=== PATIENT | female | born 1940 | race Caucasian/White ===

== ENCOUNTER 2016-08-25 15:58 | Outpatient (CLI) | payer MEDICARE | END 2016-08-25 15:59 | disposition home or self-care (01) | DX: I48.91 Unspecified atrial fibrillation (principal); Z79.01 Long term (current) use of anticoagulants ==

== ENCOUNTER 2016-09-10 14:09 | Outpatient (CLI) | payer MEDICARE ==
--- NOTE | 2016-09-11 16:33 | Mammography Report ---
DIGITAL SCREENING MAMMOGRAM: 09/10/2016 CLINICAL INDICATION: A 75-year-old, for screening. COMPARISON: 01/2015, 11/2013. TECHNIQUE: Routine CC and MLO projections were obtained of the breasts. FINDINGS: Scattered fibroglandular tissue is present within the breasts. There are no dominant serena s, suspicious microcalcifications, or secondary signs of malignancy. In comparison to the previous st udies, there are no significant changes. ASSESSMENT: NO MAMMOGRAPHIC EVIDENCE OF MALIGNANCY. NO SIGNIFICANT INTERVAL CHANGES. RECOMMENDATION: Screening mammography is recommended annually. BIRADS category 1 - negative. STANDARD QUALIFYING STATEMENTS 1. This examination was reviewed with the aid of Computed-Aided Detection (CAD). 2. A negative or benign imaging report should not delay biopsy if clinically suspicious findings are present. Consider surgical consultation if warranted. More than 5% of cancers are not identified by i maging. 3. Dense breasts may obscure an underlying neoplasm. JOB #: [id number] EXT JOB #:[id number]
== END 2016-09-10 14:10 | disposition home or self-care (01) ==
LOC: DI 14:09
PROVIDERS: ATTEND Physician Assistant Medical
DX: Z12.31 Encounter for screening mammogram for malignant neoplasm of breast (principal)
CPT/HCPCS: 77067

== ENCOUNTER 2016-09-10 14:34 | Outpatient (CLI) | payer MEDICARE | END 2016-09-10 14:35 | disposition home or self-care (01) | DX: I48.91 Unspecified atrial fibrillation (principal); Z79.01 Long term (current) use of anticoagulants ==

== ENCOUNTER 2016-10-09 14:34 | Outpatient (CLI) | payer MEDICARE | END 2016-10-09 14:35 | disposition home or self-care (01) | DX: I48.91 Unspecified atrial fibrillation (principal); Z79.01 Long term (current) use of anticoagulants ==

== ENCOUNTER 2016-11-04 14:16 | Outpatient (CLI) | payer MEDICARE | END 2016-11-04 14:17 | disposition home or self-care (01) | DX: I48.91 Unspecified atrial fibrillation (principal); Z79.01 Long term (current) use of anticoagulants ==

== ENCOUNTER 2016-11-25 14:13 | Outpatient (CLI) | payer MEDICARE | END 2016-11-25 14:14 | disposition home or self-care (01) | DX: I48.91 Unspecified atrial fibrillation (principal); Z79.01 Long term (current) use of anticoagulants ==

== ENCOUNTER 2016-12-08 14:47 | Outpatient (CLI) | payer MEDICARE | END 2016-12-08 14:48 | disposition home or self-care (01) | DX: I48.91 Unspecified atrial fibrillation (principal); Z79.01 Long term (current) use of anticoagulants ==

== ENCOUNTER 2016-12-25 15:40 | Outpatient (CLI) | payer MEDICARE ==
[2016-12-25 16:18] LABS: INR 5.2 (0.8-1.2)
== END 2016-12-25 15:41 | disposition home or self-care (01) ==
LOC: LAB 15:40
PROVIDERS: ATTEND Internal Medicine
DX: I48.91 Unspecified atrial fibrillation (principal); Z79.01 Long term (current) use of anticoagulants
CPT/HCPCS: 36415; 85610

== ENCOUNTER 2017-01-08 13:34 | Outpatient (CLI) | payer MEDICARE | END 2017-01-08 13:35 | disposition home or self-care (01) | LOC: LAB 13:34 | PROVIDERS: ATTEND Internal Medicine | DX: I48.91 Unspecified atrial fibrillation (principal); Z79.01 Long term (current) use of anticoagulants | CPT/HCPCS: 85610 ==

== ENCOUNTER 2017-01-29 14:27 | Outpatient (CLI) | payer MEDICARE | END 2017-01-29 14:28 | disposition home or self-care (01) | LOC: LAB 14:27 | PROVIDERS: ATTEND Internal Medicine | DX: I48.91 Unspecified atrial fibrillation (principal); Z79.01 Long term (current) use of anticoagulants | CPT/HCPCS: 85610 ==

== ENCOUNTER 2017-02-09 15:20 | Outpatient (CLI) | payer MEDICARE | END 2017-02-09 15:21 | disposition home or self-care (01) | LOC: LAB 15:20 | PROVIDERS: ATTEND Internal Medicine | DX: I48.91 Unspecified atrial fibrillation (principal) | CPT/HCPCS: 85610 ==

== ENCOUNTER 2017-09-10 14:19 | Outpatient (CLI) | payer MEDICARE ==
--- NOTE | 2017-09-11 10:52 | XRAY Report ---
THREE VIEW CERVICAL SPINE: 09/10/2017 CLINICAL INDICATION: Back pain. FINDINGS: AP, lateral, odontoid views of the cervical spine are compared to MRI of 07/21/2006. Severe degenerative disk and facet disease is present. There is no evidence of interval fracture or subluxation. The prevertebral soft tissues are unremarkable. IMPRESSION: SEVERE DEGENERATIVE CHANGES. TD: 09/11/2017 10:51
--- NOTE | 2017-09-11 10:54 | XRAY Report ---
TWO VIEW THORACIC SPINE: 09/10/2017 CLINICAL INDICATION: Back pain. FINDINGS: Frontal and lateral views of the thoracic spine demonstrate severe degenerative disk disease, with mild S-shaped scoliosis. There is no evidence of compression fracture. No paraspinal hematoma is seen. IMPRESSION: SEVERE DEGENERATIVE CHANGES, WITH MILD DEGENERATIVE S-SHAPED SCOLIOSIS. TD: 09/11/2017 10:53
--- NOTE | 2017-09-11 10:55 | XRAY Report ---
THREE VIEW LUMBAR SPINE: 09/10/2017 CLINICAL INDICATION: Pain. FINDINGS: AP, lateral, and coned down views of the lumbar spine demonstrate moderate degenerative disk and facet disease. Disk space narrowing is worst at L4-L5. There is no evidence of compression fracture. The bowel gas pattern appears unremarkable. IMPRESSION: MODERATE DEGENERATIVE CHANGES. TD: 09/11/2017 10:54
--- NOTE | 2017-09-11 11:01 | XRAY Report ---
TWO VIEW BILATERAL HANDS: 09/10/2017 CLINICAL INDICATION: Pain. FINDINGS: Frontal and lateral views of the bilateral hands are compared to previous films of the right hand of 07/30/2013. There has been progression of erosive changes at the distal interphalangeal joint of the right fourth finger, more compatible with psoriatic arthritis or erosive osteoarthritis. Other osteoarthritic changes in the right hand appear stable. Moderate to severe bilateral osteoarthritis of the first carpometacarpal joints is noted. IMPRESSION: PROGRESSION OF EROSIVE CHANGES AT THE DISTAL INTERPHALANGEAL JOINT OF THE RIGHT FOURTH FINGER FROM 07/30/2013. THESE CHANGES ARE MORE COMPATIBLE WITH EROSIVE OSTEOARTHRITIS OR PSORIATIC ARTHRITIS. TD: 09/11/2017 10:56
--- NOTE | 2017-09-11 11:02 | XRAY Report ---
TWO VIEW BILATERAL FEET: 09/10/2017 CLINICAL INDICATION: Foot pain. FINDINGS: Frontal and lateral views of the bilateral feet demonstrate previous side plate and screw fusion of the right first tarsometatarsal joint. Mild osteoarthritic changes are seen in the left first tarsometatarsal joint and interphalangeal joints. Moderate osteoarthritic changes are present in the tarsometatarsal joints bilaterally, and pes planus is present bilaterally, with bulky plantar calcaneal spurring. There is no evidence of acute fracture or hardware complication. IMPRESSION: MODERATE OSTEOARTHRITIC CHANGES BILATERALLY. PREVIOUS RIGHT FIRST METATARSOPHALANGEAL JOINT FUSION. TD: 09/11/2017 10:58 TYLER
== END 2017-09-10 14:20 | disposition home or self-care (01) ==
LOC: DI 14:19
PROVIDERS: ATTEND Physician Assistant Medical
DX: M19.072 Primary osteoarthritis, left ankle and foot (principal); M19.071 Primary osteoarthritis, right ankle and foot; M50.30 Other cervical disc degeneration, unspecified cervical region; M47.892 Other spondylosis, cervical region; M41.54 Other secondary scoliosis, thoracic region; M51.34 Other intervertebral disc degeneration, thoracic region; M51.36 Other intervertebral disc degeneration, lumbar region; M47.896 Other spondylosis, lumbar region; M19.042 Primary osteoarthritis, left hand; M19.041 Primary osteoarthritis, right hand; M94.8X4 Other specified disorders of cartilage, hand; M18.0 Bilateral primary osteoarthritis of first carpometacarpal joints; Z98.1 Arthrodesis status
CPT/HCPCS: 72040; 72070; 72100

== ENCOUNTER 2018-05-18 22:43 | Outpatient (CLI) | payer MEDICARE ==
[2018-05-18 16:36] LABS: BASOPHILS % (AUTO) 0.5 %; EOSINOPHILS # (AUTO) 0.1 10^3/uL (0.0-0.7); EOSINOPHILS % (AUTO) 1.1 %; HGB - HEMOGLOBIN 13.3 g/dL (12.0-16.0); LYMPHOCYTES # (AUTO) 1.5 10^3/uL (1.5-3.5); LYMPHOCYTES % (AUTO) 16.2 %; MEAN CORPUSCULAR HEMOGLOBIN 29.6 pg (27.0-31.0); MEAN CORPUSCULAR HGB CONC 33.3 g/dL (32.0-36.0); MEAN PLATELET VOLUME 10.6 fL (7.9-10.8); MONOCYTES # (AUTO) 0.9 10^3/uL (0.0-1.0); MONOCYTES % (AUTO) 9.3 %; NEUTROPHILS # (AUTO) 6.8 10^3/uL (1.5-6.6); NEUTROPHILS % (AUTO) 72.9 %; PLT - PLATELET COUNT 153 10^3/uL (130-450); RED BLOOD COUNT 4.49 10^6/uL (4.20-5.40); RED CELL DISTRIBUTION WIDTH 15.4 % (12.0-15.0); WHITE BLOOD COUNT 9.3 x10^3/uL (4.8-10.8)
[2018-05-18 16:44] LABS: ALBUMIN 4.1 g/dL (3.2-5.5); ALBUMIN/GLOBULIN RATIO 1.3 (1.0-2.2); BILIRUBIN,TOTAL 0.7 mg/dL (0.2-1.0); CALCIUM 9.8 mg/dL (8.5-10.3); CREATININE 1.1 mg/dL (0.4-1.0); CRP - C-REACTIVE PROTEIN 14.9 mg/dL (0-1.0); TOTAL PROTEIN 7.3 g/dL (6.7-8.2)
[2018-05-18 16:50] LABS: PLATELET MORPHOLOGY RARE GIANT PLATELETS (NORMAL)
[2018-05-18 16:51] LABS: PLATELET ESTIMATE, MANUAL NORMAL (130-450,000) (NORMAL); RBC MORPHOLOGY (MULTIPLE) NORMAL APPEARANCE (NORMAL)
== END 2018-05-18 22:44 | disposition home or self-care (01) ==
LOC: LAB.R 22:43
PROVIDERS: ATTEND Physician Assistant Medical
DX: R10.32 Left lower quadrant pain (principal)
CPT/HCPCS: 80053; 85025; 85651; 86140

== ENCOUNTER 2018-05-22 12:31 | Outpatient (CLI) | payer MEDICARE ==
[2018-05-22] MEDS ORDERED: IOPAMIDOL-300 100 ML VIAL ONE (12:35)
[2018-05-22] MEDS ORDERED: IOPAMIDOL-300 50 ML VIAL ONE (12:35)
[2018-05-22] MEDS ORDERED: IOPAMIDOL-300 50 ML VIAL PO ONE (14:34)
[2018-05-22] MEDS ORDERED: IOPAMIDOL-300 100 ML VIAL IVP ONE (14:34)
--- NOTE | 2018-05-23 03:30 | CT Report ---
Reason: ABDOMINAL PAIN, LLQ Procedure Date: 05/22/2018 Accession Number: [id number] / [id number] Procedure: CT - Abdomen/Pelvis W/ CPT Code: FULL RESULT: EXAM: CT ABDOMEN AND PELVIS EXAM DATE: 05/22/2018 01:54 PM. CLINICAL HISTORY: Abdominal pain, left lower quadrant. COMPARISONS: ABDOMEN/PELVIS W/ 07/31/2016 12:45 AM. TECHNIQUE: Routine helical CT imaging was performed through the abdomen and pelvis. IV contrast: ISOVUE 300 100mL. Enteric contrast: Yes. Reconstructions: Coronal and sagittal. In accordance with CT protocol optimization, one or more of the following dose reduction techniques were utilized for this exam: automated exposure control, adjustment of mA and/or KV based on patient size, or use of iterative reconstructive technique. FINDINGS: Lung Bases: Mild cardiomegaly. Liver: Stable benign small posterior right liver hypodense focus. No suspicious masses. Gallbladder/Bile Ducts: Unremarkable. Spleen: Unremarkable with an incidental statistically benign small hypodense focus. Pancreas: Unremarkable. Adrenal Glands: Unremarkable. Kidneys: Unremarkable. No suspicious masses or hydronephrosis. Peritoneal Cavity/Bowel: Distal descending colon diverticulitis with mild surrounding inflammatory changes. No gross perforation or abscess seen. Moderate size anterior right pelvic wall hernia containing fat and a moderate segment of nonobstructed small bowel. Moderate stool burden. Bowel otherwise appears unremarkable. Pelvic Organs: Bladder, uterus, and adnexa appear unremarkable. Vasculature: Severe atherosclerotic disease of the aorta and branches. No aneurysm seen. Bones: No significant abnormality. Other: None. IMPRESSION: 1. Distal descending colon diverticulitis without apparent complication. 2. Moderate stool burden. 3. Mild cardiomegaly. 4. Severe atherosclerotic disease of the aorta and branches. 5. Chronic uncomplicated lower right anterolateral pelvic fat and small bowel containing hernia. [facility] ADDENDUM: 05/23/18 08:53 Findings regarding acute diverticulitis were discussed with Dr. Millard by Dr. Zamudio at approximately 8:53 AM on 05/23/2018.
== END 2018-05-22 12:32 | disposition home or self-care (01) ==
LOC: DI 12:31
PROVIDERS: ATTEND Physician Assistant Medical
DX: R10.32 Left lower quadrant pain (principal); K57.32 Diverticulitis of large intestine without perforation or abscess without bleeding; I51.7 Cardiomegaly; I70.0 Atherosclerosis of aorta; K46.9 Unspecified abdominal hernia without obstruction or gangrene
CPT/HCPCS: 74177; Q9967

== ENCOUNTER 2018-09-23 14:29 | Outpatient (CLI) | payer MEDICARE ==
--- NOTE | 2018-09-24 10:48 | XRAY Report ---
Reason: SWEATS Procedure Date: 09/23/2018 Accession Number: [id number] / [id number] Procedure: XR - Chest 2 View X-Ray CPT Code: 85684 FULL RESULT: EXAM: CHEST RADIOGRAPHY EXAM DATE: 09/23/2018 03:07 PM. CLINICAL HISTORY: Sweats. COMPARISON: THORACIC SPINE 2 VIEW 09/10/2017 3:28 PM. TECHNIQUE: 2 views. FINDINGS: Lungs/Pleura: No focal opacities evident. No pleural effusion. No pneumothorax. Normal volumes. Mediastinum: Heart and mediastinal contours are stable and not enlarged including calcifications of the aortic arch. No calcified lymph nodes are detected. Other: None. IMPRESSION: No active airspace disease or evidence of granulomatous disease. RADIA
== END 2018-09-23 14:30 | disposition home or self-care (01) ==
LOC: DI 14:29
PROVIDERS: ATTEND Physician Assistant Medical
DX: R61 Generalized hyperhidrosis (principal)
CPT/HCPCS: 71046

== ENCOUNTER 2019-03-28 10:10 | Outpatient (CLI) | payer MEDICARE | END 2019-03-28 10:11 | disposition home or self-care (01) | LOC: DI 10:10 | PROVIDERS: ATTEND Internal Medicine Cardiovascular Disease | DX: I42.1 Obstructive hypertrophic cardiomyopathy (principal) | CPT/HCPCS: 93306 ==

== ENCOUNTER 2020-01-24 10:10 | Outpatient (CLI) | payer MEDICARE ==
[2020-01-24 10:52] LABS: ALBUMIN/GLOBULIN RATIO 1.1 (1.0-2.2); ALKALINE PHOSPHATASE 84 IU/L (42-121); ALT ALANINE AMINOTRANSFERASE 10 IU/L (10-60); AST ASPARTATE AMINOTRANSFERASE 13 IU/L (10-42); BILIRUBIN,TOTAL 0.7 mg/dL (0.2-1.0); BUN - BLOOD UREA NITROGEN 17 mg/dL (6-20); CALCIUM 9.6 mg/dL (8.5-10.3); CARBON DIOXIDE - CO2 28 mmol/L (21-32); CHLORIDE 100 mmol/L (101-111); CHOL/HDL RATIO 6.2 (<4.4); CHOLESTEROL 216 mg/dL; CREATININE 1.1 mg/dL (0.4-1.0); GLUCOSE 107 mg/dL (70-100); HDL CHOLESTEROL 35 mg/dL; LDL CHOLESTEROL,CALCULATED 150 mg/dL; LDL/HDL RATIO 4.3 (<4.4); SODIUM 136 mmol/L (135-145); TOTAL PROTEIN 7.6 g/dL (6.7-8.2); VLDL CHOLESTEROL 31 mg/dL
== END 2020-01-24 10:11 | disposition home or self-care (01) ==
LOC: LAB 10:10
PROVIDERS: ATTEND Family Medicine
DX: I42.9 Cardiomyopathy, unspecified (principal)
CPT/HCPCS: 36415; 80053; 80061; 83721

== ENCOUNTER 2021-06-11 10:56 | Emergency (ER) | payer MEDICARE ==
--- NOTE | 2021-06-11 12:14 | XRAY Report ---
PROCEDURE: Chest 1 View X-Ray INDICATIONS: chest pain TECHNIQUE: One view of the chest was acquired. COMPARISON: CXR 09/23/2018. FINDINGS: Surgical changes and devices: None. Lungs and pleura: No pleural effusions or pneumothorax. Right upper lobe consolidation or mass measu ring 5 cm, new compared to 2019. Mediastinum: Mediastinal contours appear unchanged. Heart size is within normal limits. Bones and chest wall: No suspicious bony lesions. Overlying soft tissues appear unremarkable. IMPRESSION: Right upper lobe consolidation or mass is new compared to 2019. This can be further evaluated with CT of the chest with IV contrast. Reviewed by: Koby Tavares MD on 06/11/2021 12:13 PM PST Approved by: Koby Tavares MD on 06/11/2021 12:[address] [facility] Station ID: [id number]
[2021-06-11 12:48] LABS: BASOPHILS % (AUTO) 0.3 %; EOSINOPHILS # (AUTO) 0.1 10^3/uL (0.0-0.7); EOSINOPHILS % (AUTO) 0.8 %; HCT - HEMATOCRIT 40.1 % (37.0-47.0); HGB - HEMOGLOBIN 12.8 g/dL (12.0-16.0); LYMPHOCYTES # (AUTO) 0.9 10^3/uL (1.5-3.5); LYMPHOCYTES % (AUTO) 6.8 %; MEAN CORPUSCULAR HEMOGLOBIN 29.5 pg (27.0-31.0); MEAN CORPUSCULAR HGB CONC 31.9 g/dL (32.0-36.0); MEAN CORPUSCULAR VOLUME 92.4 fL (81.0-99.0); MEAN PLATELET VOLUME 11.3 fL (7.9-10.8); MONOCYTES # (AUTO) 0.9 10^3/uL (0.0-1.0); MONOCYTES % (AUTO) 6.9 %; NEUTROPHILS # (AUTO) 11.1 10^3/uL (1.5-6.6); NEUTROPHILS % (AUTO) 84.6 %; PLT - PLATELET COUNT 272 10^3/uL (130-450); RED BLOOD COUNT 4.34 10^6/uL (4.20-5.40); RED CELL DISTRIBUTION WIDTH 14.4 % (12.0-15.0); WHITE BLOOD COUNT 13.1 x10^3/uL (4.8-10.8)
[2021-06-11 12:55] LABS: PT - PROTHROMBIN TIME 22.6 secs (9.9-12.6)
[2021-06-11] MEDS ORDERED: IOVERSOL 320 100 ML VIAL IVP ONE ×2 (12:59→16:20)
[2021-06-11 13:02] LABS: ALBUMIN 3.7 g/dL (3.2-5.5); ALBUMIN/GLOBULIN RATIO 0.9 (1.0-2.2); BILIRUBIN,TOTAL 0.5 mg/dL (0.2-1.0); POTASSIUM 3.8 mmol/L (3.5-5.0); TOTAL PROTEIN 7.6 g/dL (6.7-8.2)
--- NOTE | 2021-06-11 13:19 | ED Physician Documentation ---
History of Present Illness - Stated complaint Stated Complaint: COUGHING BLOOD - Chief complaint Chief Complaint: General - History obtained from History obtained from: Patient - Additonal information Additional information: Patient comes emergency department chief complaint of productive cough for 2 weeks initially with decker sputum and now hemoptysis. She states she began to have some streaks of blood in her sputum yesterday and this morning coughed up "a lot" of blood. Patient denies any lightheadedness. No shortness of breath. She has had a pain in the right lateral portion of her upper chest that started today. Patient has a history of some sort of lesion in her right lung that was found years ago on chest x-ray and never explored further. She denies weight loss. No night sweats. Patient was started on Eliquis for A. 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 No other easy bruising or bleeding. No other complaints at this time. Review of Systems Ten Systems: 10 systems reviewed and negative Constitutional: reports: Reviewed and negative Eyes: reports: Reviewed and negative Ears: reports: Reviewed and negative Nose: reports: Reviewed and negative Throat: reports: Reviewed and negative Cardiac: reports: Chest pain / pressure Respiratory: reports: Cough GI: reports: Reviewed and negative : reports: Reviewed and negative Skin: reports: Reviewed and negative Musculoskeletal: reports: Reviewed and negative Neurologic: reports: Reviewed and negative Psychiatric: reports: Reviewed and negative Endocrine: reports: Reviewed and negative Immunocompromised: reports: Reviewed and negative PD PAST MEDICAL HISTORY - Past Medical History Past Medical History: Yes Cardiovascular: High cholesterol, Atrial fibrillation, Other Respiratory: None Neuro: Migraines Endocrine/Autoimmune: None GI: GERD 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 HEENT: Chronic vision loss Psych: None Musculoskeletal: Osteoarthritis, Gout Derm: None - Past Surgical History Past Surgical History: Yes General: Appendectomy Ortho: Spine surgery - Present Medications Home Medications: Ambulatory Orders Medication Instructions Recorded Confirmed Disopyramide Phosphate [Norpace Cr] 200 mg PO BID 07/16/13 06/11/21 Metoprolol Tartrate 100 mg PO BID 07/16/13 06/11/21 Pregabalin [Lyrica] 100 mg PO HS 07/16/13 06/11/21 Apixaban [Eliquis] 5 mg ORAL BID 06/11/21 06/11/21 Atorvastatin Calcium [Lipitor] 80 mg PO HS 06/11/21 06/11/21 Methadone [Methadone Hcl] 5 mg PO BID 06/11/21 06/11/21 Oxycodone HCl 10 mg ORAL Q6HR PRN 06/11/21 06/11/21 Sumatriptan Succinate [Imitrex] 100 mg PO DAILY PRN 06/11/21 06/11/21 allopurinoL [Zyloprim] 100 mg PO DAILY 06/11/21 06/11/21 - Allergies Allergies/Adverse Reactions: Allergies Allergy/AdvReac Type Severity Reaction Status Date / Time No Known Drug Allergies Allergy Verified 06/11/21 11:11 - Social History Does the pt smoke?: No Smoking Status: Never smoker Does the pt drink ETOH?: Yes Does the pt have substance abuse?: No - Immunizations Immunizations are current?: Yes - POLST Patient has POLST: No PD ED PE NORMAL - Vitals Vital signs reviewed: Yes - General General: Alert and oriented X 3, No acute distress, Well developed/nourished - HEENT HEENT: Atraumatic, PERRL, EOMI, Moist mucous membranes - Neck Neck: Supple, no meningeal sign - Cardiac Cardiac: RRR, No murmur, Strong equal pulses - Respiratory Respiratory: No respiratory distress, Other (Rales right lower lung field) - Abdomen Abdomen: Soft, Non tender, Non distended - Derm Derm: Normal color, Warm and dry, No rash - Extremities Extremities: No deformity, No edema, No calf tenderness / cord - Neuro Neuro: Alert and oriented X 3, 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, Normal speech, Other (Grossly intact) - Psych Psych: Normal mood, Normal affect Results - Vitals Vitals: Vital Signs - 24 hr 06/11/21 06/11/21 06/11/21 11:11 13:17 14:06 Temperature 37 C Heart Rate 66 64 66 Respiratory 18 16 16 Rate Blood Pressure 184/81 H 143/74 H 156/68 H O2 Saturation 96 97 97 06/11/21 15:29 Temperature 36.2 C L Heart Rate 61 Respiratory 16 Rate Blood Pressure 145/78 H O2 Saturation 98 Oxygen O2 Source Room air - Labs Labs: Laboratory Tests 06/11/21 06/11/21 06/11/21 12:35 12:35 12:35 WBC 13.1 H RBC 4.34 Hgb 12.8 Hct 40.1 MCV 92.4 MCH 29.5 MCHC 31.9 L RDW 14.4 Plt Count 272 MPV 11.3 H Neut # (Auto) 11.1 H Lymph # (Auto) 0.9 L Todd # (Auto) 0.9 Eos # (Auto) 0.1 Baso # (Auto) 0.0 Absolute Nucleated RBC 0.00 Nucleated RBC % 0.0 PT 22.6 H INR 2.0 H APTT 37.0 H Sodium 140 Potassium 3.8 Chloride 99 L Carbon Dioxide 27 Anion Gap 14.0 H BUN 13 Creatinine 1.0 Estimated GFR (MDRD) 53 L Glucose 145 H Calcium 10.0 Total Bilirubin 0.5 AST 15 ALT 12 Alkaline Phosphatase 99 Total Protein 7.6 Albumin 3.7 Globulin 3.9 Albumin/Globulin Ratio 0.9 L Lipase 23 Nasal Adenovirus (PCR) Nasal B. parapertussis DNA (PCR) Nasal Coronavir 229E PCR Nasal Coronavir HKU1 PCR Nasal Coronavir NL63 PCR Nasal Coronavir OC43 PCR Nasal Enterovir/Rhinovir PCR Nasal Influenza B PCR Nasal Influenza A PCR Nasal Parainfluen 1 PCR Nasal Parainfluen 2 PCR Nasal Parainfluen 3 PCR Nasal Parainfluen 4 PCR Nasal RSV (PCR) Nasal B.pertussis DNA PCR Nasal C.pneumoniae (PCR) Deonte Human Metapneumo PCR Nasal M.pneumoniae (PCR) Nasal SARS-CoV-2 (PCR) 06/11/21 16:10 WBC RBC Hgb Hct MCV MCH MCHC RDW Plt Count MPV Neut # (Auto) Lymph # (Auto) Todd # (Auto) Eos # (Auto) Baso # (Auto) Absolute Nucleated RBC Nucleated RBC % PT INR APTT Sodium Potassium Chloride Carbon Dioxide Anion Gap BUN Creatinine Estimated GFR (MDRD) Glucose Calcium Total Bilirubin AST ALT Alkaline Phosphatase Total Protein Albumin Globulin Albumin/Globulin Ratio Lipase Nasal Adenovirus (PCR) NOT DETECTED Nasal B. parapertussis DNA (PCR) NOT DETECTED Nasal Coronavir 229E PCR NOT DETECTED Nasal Coronavir HKU1 PCR NOT DETECTED Nasal Coronavir NL63 PCR NOT DETECTED Nasal Coronavir OC43 PCR NOT DETECTED Nasal Enterovir/Rhinovir PCR NOT DETECTED Nasal Influenza B PCR NOT DETECTED Nasal Influenza A PCR NOT DETECTED Nasal Parainfluen 1 PCR NOT DETECTED Nasal Parainfluen 2 PCR NOT DETECTED Nasal Parainfluen 3 PCR NOT DETECTED Nasal Parainfluen 4 PCR NOT DETECTED Nasal RSV (PCR) NOT DETECTED Nasal B.pertussis DNA PCR NOT DETECTED Nasal C.pneumoniae (PCR) NOT DETECTED Deonte Human Metapneumo PCR NOT DETECTED Nasal M.pneumoniae (PCR) NOT DETECTED Nasal SARS-CoV-2 (PCR) NOT DETECTED - Rads (name of study) CXR Radiology: Final report received, EMP read indepedently, See rad report (RUL mass) CT chest Radiology: Final report received, EMP read indepedently, See rad report (Cavitary lesion right upper lobe, cavitating mass versus abscess.) PD MEDICAL DECISION MAKING - ED course Complexity details: reviewed results, re-evaluated patient, considered differential, d/w patient ED course: The patient was worked up with laboratory studies, which showed an INR of 2 and a white count of over 13. Chest x-ray showed a new right upper lobe mass since comparison film in 2019. The patient was sent for CT scan of the chest which showed a cavitary mass versus abscess in the patient's right upper lobe. The patient did not have any hemoptysis in the emergency department as at the time of this dictation. I spoke with the [place] hospitalist Dr. Rush for [facility] and he has accepted the patient in transfer. Patient at this time is awaiting assignment of a bed at [facility], which will likely not happen until tomorrow. Since she is afebrile and stable, and we are not sure what the nature of her lesion is, we will hold off on antibiotics for now. Given the likely delay in transfer till tomorrow, the patient is signed out to at change of shift to oncoming emergency physician for overnight care until patient can be transferred for definitive care to [facility]. Departure - Departure Disposition: 02 Transfer Acute Care Hosp Clinical Impression: Lung mass, Hemoptysis Lung abscess Qualifiers: Pulmonary abscess pneumonia presence: without pneumonia Laterality: right Lung location: upper lobe of lung Qualified Code(s): J85.2 - Abscess of lung without pneumonia Condition: Serious
--- NOTE | 2021-06-11 14:16 | CT Report ---
PROCEDURE: CHEST W INDICATIONS: R chest wall mass on xray CONTRAST: IV CONTRAST: Optiray 320 ml: 100 PO CONTRAST: *NO PO CONTRAST TECHNIQUE: After the administration of intravenous contrast, 1 mm axial images were acquired from the pulmonary apices through the posterior costophrenic angles. Axial 5 mm soft tissue kernel reconstructions were performed as well as 8 mm axial MIP and coronal and sagittal 5 mm reformations. For radiation dose reduction, the following was used: automated exposure control, adjustment of mA and/or kV according to patient size. COMPARISON: Chest films from today. FINDINGS: Image quality: Excellent. Lungs and pleura: Large thick-walled cavitary lesion, extending to the pleura, almost completely fill ed with fluid, with minimal air. Consider pulmonary abscess versus necrotic cavitary neoplasm. The le kristen measures 3.8 x 5.1 cm on image 136/4. Associated mild inflammatory change in the adjacent pulmon denis parenchyma. Right upper lobe bronchial wall thickening. Patchy right basilar infiltrate. No other cavitary lesions. 3 mm pulmonary nodule, abutting pleura, left lower lobe, image 228/4. No acute air space opacities. No pleural effusions or pneumothorax. Central and peripheral airways are patent a nd normal in caliber. Mediastinum: Heart size is normal. No pericardial effusion. No mediastinal or hilar adenopathy by size criteria. A right hilar lymph node measures approximately 1.9 x 1.8 cm, nonspecific, possibly r eactive or possibly metastatic. No other suspicious lymph nodes. Thoracic aorta and central pulmonary arteries are normal in size. Esophagus is normal in caliber. No hiatal hernia. Bones and chest wall: No suspicious bony lesions. No acute vertebral body compression fractures. Mi nimal anterior vertebral body height loss of multiple contiguous thoracic vertebral bodies results in increased thoracic kyphosis. No axillary or supraclavicular adenopathy by size criteria. The thyro id is normal in size and there are no incidental findings.. Abdomen: Visualized upper abdominal solid organs appear normal. Upper abdominal bowel loops are nor mal in caliber. IMPRESSION: 1. Large cavitary lesion, right upper lobe. This has a thick wall, and is nearly completely fluid-heather led with minimal air within the cavity. Findings may potentially represent pulmonary abscess. Also po ssible is necrotic cavitary malignancy. 2. Right hilar lymph node is nonspecific. 3. 3 mm left lower lobe pulmonary nodule. CLINICAL RECOMMENDATION STATEMENTS: In patients <35 years with an ITN detected on CT, MRI, or extrathyroidal ultrasound, the Committee re commends further evaluation with dedicated thyroid ultrasound if the nodule is "e1 cm and has no susp icious imaging features, and if the patient has normal life expectancy. In patients "e35 years with an ITN detected on CT, MRI, or extrathyroidal ultrasound, the Committee r ecommends further evaluation with dedicated thyroid ultrasound if the nodule is "e1.5 cm and has no s uspicious imaging features, and if the patient has normal life expectancy. (ACR, 2014) Reviewed by: Maco Jensen MD on 06/11/2021 2:15 PM PST Approved by: Maco Jensen MD on 06/11/2021 2:15 PM PST Station ID: [id number]
[2021-06-11 17:10] LABS: B. PARAPERTUSSIS- RESP PCR PAN NOT DETECTED; B. PERTUSSIS- RESP PCR PANEL NOT DETECTED; C. PNEUMONIAE- RESP PCR PANEL NOT DETECTED; CORONAVIRUS 229E-RESP PCR NOT DETECTED; CORONAVIRUS HKU1-RESP PCR NOT DETECTED; CORONAVIRUS NL63-RESP PCR NOT DETECTED; CORONAVIRUS OC43-RESP PCR NOT DETECTED; HUMAN METAPNEUMOVIRUS NOT DETECTED; INFLUENZA A- RESP PCR PANEL NOT DETECTED; INFLUENZA B - RESP PCR PANEL NOT DETECTED; M. PNEUMONIAE- RESP PCR PANEL NOT DETECTED; PARAINFLUENZA VIRUS 1 NOT DETECTED; PARAINFLUENZA VIRUS 2 NOT DETECTED; PARAINFLUENZA VIRUS 3 NOT DETECTED; PARAINFLUENZA VIRUS 4 NOT DETECTED; RHINOVIRUS/ENTEROVIRUS NOT DETECTED; RSV- RESP PCR PANEL NOT DETECTED; SARS-CoV-2 -RESP PCR PANEL NOT DETECTED
[2021-06-11] MEDS ORDERED: SUMAtriptan 25 MG TABLET PO STA (17:40)
[2021-06-11] MEDS ORDERED: SODIUM CHLORIDE 0.9% 1,000 ML IV STA (20:36)
[2021-06-11] MEDS ORDERED: MAG HYDROX/AL HYDROX/SIMETH 30 ML UDC PO STA (20:39)
[2021-06-11 20:42] VITALS: BP 188/82
== END 2021-06-11 21:40 | disposition short-term general hospital (02) ==
LOC: ED 10:56
DX: J85.2 Abscess of lung without pneumonia (principal); R04.2 Hemoptysis; Z20.822 Contact with and (suspected) exposure to COVID-19
CPT/HCPCS: 36415; 71045; 71260; 80053; 83690; 85025; 85610; 85730; 87631; 99285; A9270; Q9967; 0202U

== ENCOUNTER 2021-06-11 21:40 | Outpatient (CLI) | payer MEDICARE | END 2021-06-11 21:41 | disposition short-term general hospital (02) | LOC: EMS 21:40 | PROVIDERS: ATTEND Emergency Medicine | DX: J98.4 Other disorders of lung (principal) | CPT/HCPCS: A0425; A0428 ==

== ENCOUNTER 2021-09-06 13:40 | Outpatient (CLI) | payer MEDICARE ==
--- NOTE | 2021-09-06 17:33 | CT Report ---
PROCEDURE: CHEST WO INDICATIONS: LUNG MASS TECHNIQUE: Noncontrast 1mm axial images were acquired from the pulmonary apices to the posterior costophrenic an gles. Axial 5 mm soft tissue kernel reconstructions were performed as well as 8 mm axial MIP and cor onal and sagittal 5 mm reformations. For radiation dose reduction, the following was used: automate d exposure control, adjustment of mA and/or kV according to patient size. COMPARISON: CT chest is contrast, 06/11/2021. FINDINGS: Image quality: Excellent. Lungs and pleura: There is a spiculated mass in the right upper lobe laterally measuring 0.8 x 2.5 c m. Compared to last exam on 06/11/2021, it appears decreased in size (previously 3.8 x 5.1 cm). There are subpleural scars and atelectasis right upper lobe, lingula and both lower lobes. Stable 4 mm rig ht lower lobe nodule (series 4 image 197). No acute air space opacities. No pleural effusions or pne umothorax. . Mild bronchial wall thickening bilaterally likely secondary to chronic bronchitis. Mediastinum: Heart size is mildly increased. There is moderate coronary calcification. No pericardi al effusion. No mediastinal adenopathy by size criteria. Right hilar lymph nodes are not well seen due to lack of intravenous contrast. Thoracic aorta and central pulmonary arteries are normal in size . Esophagus is normal in caliber. No hiatal hernia. Bones and chest wall: No suspicious bony lesions. No vertebral body compression fractures. No axil homer or supraclavicular adenopathy by size criteria. The thyroid is normal in size and there are no incidental findings. Abdomen: Visualized upper abdominal solid organs and bowel loops appear normal in the absence of con trast. IMPRESSION: 1. The right upper lobe mass has decreased in size. Recommend follow-up to resolution. 2. Stable 4 mm left lower lobe nodule 3. Mild cardiomegaly. 4. Moderate coronary artery calcification. CLINICAL RECOMMENDATION STATEMENTS: In patients <35 years with an ITN detected on CT, MRI, or extrathyroidal ultrasound, the Committee re commends further evaluation with dedicated thyroid ultrasound if the nodule is "e1 cm and has no susp icious imaging features, and if the patient has normal life expectancy. In patients "e35 years with an ITN detected on CT, MRI, or extrathyroidal ultrasound, the Committee r ecommends further evaluation with dedicated thyroid ultrasound if the nodule is "e1.5 cm and has no s uspicious imaging features, and if the patient has normal life expectancy. (ACR, 2014) Reviewed by: Jillian Dangelo MD on 09/06/2021 5:31 PM PST Approved by: Jillian Dangelo MD on 09/06/2021 5:31 PM PST Station ID: [id number]
== END 2021-09-06 13:41 | disposition home or self-care (01) ==
LOC: DI 13:40
PROVIDERS: ATTEND Internal Medicine
DX: R91.8 Other nonspecific abnormal finding of lung field (principal); I51.7 Cardiomegaly; I25.10 Atherosclerotic heart disease of native coronary artery without angina pectoris

== ENCOUNTER 2021-09-13 14:52 | Emergency (ER) | payer MEDICARE ==
[2021-09-13] MEDS ORDERED: SODIUM CHLORIDE 0.9% 500 ML IV STA (15:37)
[2021-09-13 16:01] LABS: BASOPHILS % (AUTO) 0.5 %; EOSINOPHILS # (AUTO) 0.3 10^3/uL (0.0-0.7); EOSINOPHILS % (AUTO) 3.9 %; HCT - HEMATOCRIT 43.2 % (37.0-47.0); HGB - HEMOGLOBIN 13.6 g/dL (12.0-16.0); LYMPHOCYTES # (AUTO) 1.8 10^3/uL (1.5-3.5); LYMPHOCYTES % (AUTO) 23.4 %; MEAN CORPUSCULAR HGB CONC 31.5 g/dL (32.0-36.0); MEAN CORPUSCULAR VOLUME 95.4 fL (81.0-99.0); MEAN PLATELET VOLUME 14.1 fL (7.9-10.8); MONOCYTES # (AUTO) 0.7 10^3/uL (0.0-1.0); MONOCYTES % (AUTO) 8.9 %; NEUTROPHILS # (AUTO) 4.8 10^3/uL (1.5-6.6); PLT - PLATELET COUNT 152 10^3/uL (130-450); RED BLOOD COUNT 4.53 10^6/uL (4.20-5.40); RED CELL DISTRIBUTION WIDTH 15.3 % (12.0-15.0); WHITE BLOOD COUNT 7.7 x10^3/uL (4.8-10.8)
[2021-09-13 16:17] LABS: ALBUMIN/GLOBULIN RATIO 1.3 (1.0-2.2); BILIRUBIN,TOTAL 0.9 mg/dL (0.2-1.0); CREATININE 1.2 mg/dL (0.4-1.0); MAGNESIUM 2.1 mg/dL (1.7-2.8); POTASSIUM 4.4 mmol/L (3.5-5.0); TOTAL PROTEIN 7.1 g/dL (6.7-8.2)
--- NOTE | 2021-09-13 16:33 | XRAY Report ---
PROCEDURE: Chest 1 View X-Ray INDICATIONS: Chest Pain TECHNIQUE: One view of the chest was acquired. COMPARISON: June 11, 2021 FINDINGS: SUPPORT DEVICES: None. LUNGS/PLEURA: Coarsened interstitial markings. No focal consolidation, pleural effusion or space-occu pying pneumothorax. The previously demonstrated right upper lung zone mass is no longer appreciated. MEDIASTINUM: Prominence of the cardiac silhouette, partially exaggerated by technique. BONES/SOFT TISSUES: No acute abnormality. IMPRESSION: 1.No acute cardiopulmonary abnormality. Reviewed by: Amos Waldrop MD on 09/13/2021 4:31 PM [facility] Approved by: Amos Waldrop MD on 09/13/2021 4:31 PM [facility] Station ID: [id number]
--- NOTE | 2021-09-13 17:06 | ED Physician Documentation ---
PD HPI CHEST PAIN - Stated complaint Stated Complaint: WEAKNESS/CHEST PAIN - Chief complaint Chief Complaint: Cardiac - History obtained from History obtained from: Patient - History of Present Illness Timing - onset: How many hours ago (1), Today Timing - onset during: Light activity Timing - duration: Hours (1) Timing - details: Gradual onset, Still present, Waxing and waning Quality: Pressure, Tightness Location: Substernal Associated symptoms: Feeling faint / dizzy, General Weakness. No: Shortness of air, Nausea, Vomiting Similar symptoms before: Has not had sx before Recently seen: Not recently seen (denies recent change in meds nor changed oral intake.) Review of Systems Constitutional: denies: Fever, Chills Nose: denies: Rhinorrhea / runny nose, Congestion Throat: denies: Sore throat Respiratory: denies: Dyspnea, Cough, Wheezing GI: denies: Abdominal Pain, Nausea, Vomiting Neurologic: reports: Generalized weakness. 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 HEENT: Chronic vision loss Psych: None Musculoskeletal: Osteoarthritis, Gout Derm: None - Past Surgical History Past Surgical History: Yes General: Appendectomy Ortho: Spine surgery - Present Medications Home Medications: Ambulatory Orders Medication Instructions Recorded Confirmed Disopyramide Phosphate [Norpace Cr] 200 mg PO BID 07/16/13 06/11/21 Metoprolol Tartrate 100 mg PO BID 07/16/13 06/11/21 Pregabalin [Lyrica] 100 mg PO HS 07/16/13 06/11/21 Apixaban [Eliquis] 5 mg ORAL BID 06/11/21 06/11/21 Atorvastatin Calcium [Lipitor] 80 mg PO HS 06/11/21 06/11/21 Methadone [Methadone Hcl] 5 mg PO BID 06/11/21 06/11/21 Oxycodone HCl 10 mg ORAL Q6HR PRN 06/11/21 06/11/21 Sumatriptan Succinate [Imitrex] 100 mg PO DAILY PRN 06/11/21 06/11/21 allopurinoL [Zyloprim] 100 mg PO DAILY 11/09/21 11/09/21 - Allergies Allergies/Adverse Reactions: Allergies Allergy/AdvReac Type Severity Reaction Status Date / Time No Known Drug Allergies Allergy Verified 09/13/21 15:16 - Social History Does the pt smoke?: No Smoking Status: Never smoker Does the pt drink ETOH?: Yes Does the pt have substance abuse?: No - Immunizations Immunizations are current?: Yes - POLST Patient has POLST: No PD ED PE NORMAL - Vitals Vital signs reviewed: Yes (initial HR in 30s and BP 100 systolic. ) - General General: Alert and oriented X 3, Well developed/nourished - HEENT HEENT: Pharynx benign - Neck Neck: Supple, no meningeal sign, No adenopathy - Cardiac Cardiac: No murmur. No: RRR (bradycardic) - Respiratory Respiratory: Clear bilaterally - Abdomen Abdomen: Soft, Non tender - Derm Derm: Normal color, Warm and dry - Extremities Extremities: Normal ROM s pain, No edema, No calf tenderness / cord - Neuro Neuro: Alert and oriented X 3 Eye Opening: Spontaneous Motor: Obeys Commands Verbal: Oriented GCS Score: 15 Results - Vitals Vitals: Oxygen O2 Source Room air - EKG (time done) 15:21 Rate: Rate (enter#) (34) Rhythm: Sinus bradycardia [place]: Normal Intervals: LBBB Ischemia: Normal ST segments, Non specific changes. No: ST elevation c/w ischemia - Labs Labs: Laboratory Tests 09/13/21 09/13/21 09/13/21 15:29 15:29 15:29 WBC 7.7 RBC 4.53 Hgb 13.6 Hct 43.2 MCV 95.4 MCH 30.0 MCHC 31.5 L RDW 15.3 H Plt Count 152 MPV 14.1 H Neut # (Auto) 4.8 Lymph # (Auto) 1.8 [place] # (Auto) 0.7 Eos # (Auto) 0.3 Baso # (Auto) 0.0 Absolute Nucleated RBC 0.00 Nucleated RBC % 0.0 Sodium 137 Potassium 4.4 Chloride 100 L Carbon Dioxide 27 Anion Gap 10.0 BUN 11 Creatinine 1.2 H Estimated GFR (MDRD) 43 L Glucose 157 H Calcium 10.0 Magnesium 2.1 Total Bilirubin 0.9 AST 26 ALT 14 Alkaline Phosphatase 66 Troponin I High Sens 9.2 B-Natriuretic Peptide Total Protein 7.1 Albumin 4.0 Globulin 3.1 Albumin/Globulin Ratio 1.3 Lipase 21 L 09/13/21 15:29 WBC RBC Hgb Hct MCV MCH MCHC RDW Plt Count MPV Neut # (Auto) Lymph # (Auto) [place] # (Auto) Eos # (Auto) Baso # (Auto) Absolute Nucleated RBC Nucleated RBC % Sodium Potassium Chloride Carbon Dioxide Anion Gap BUN Creatinine Estimated GFR (MDRD) Glucose Calcium Magnesium Total Bilirubin AST ALT Alkaline Phosphatase Troponin I High Sens B-Natriuretic Peptide 481 H Total Protein Albumin Globulin Albumin/Globulin Ratio Lipase - Rads (name of study) chest xray Radiology: Prelim report reviewed (no acute process), See rad report PD MEDICAL DECISION MAKING - ED course Complexity details: re-evaluated patient (Her heart rate became more regularly in the upper 40s here in the ER and she felt well. She wants to go home and seems stable HR now. ), considered differential (Heart rate slow into 30s. It wavered in rate and in 40s she states she was feeling better. HR 45-55 normally at home. BP remained good once HR increased. ), d/w patient, d/w road consultant (tank car reconditioner Cardiology for [facility] - he directed to decrease the metoprolol. Watch patient for some time, either ER or OBS to ensure not slower. ) ED course: presume patient's heart rate hit the tipping point where rate was too low to support good perfusion, with some lowered BP. However, HR improved on its own and stayed good after awhile. She is feeling okay. I talked with tank car reconditioner Cardiology and he states prior ECGs have LBBB with bradycardia in 50. Patient purposely has HR in 45-55 range. She should decrease metoprolol dose from 100 mg daily (she is taking 50 bid) down to 50 mg daily (50 mg once is okay). Departure - Departure Disposition: 01 Home, Self Care Clinical Impression: Chest discomfort, Generalized weakness, Bradycardia with 31-40 beats per minute Condition: Stable Follow-Up: Darrin Salinas MD [Primary Care Provider] - Oseas Chisholm MD [Physician No Access] - Comments: I talked to the on-call accounts receivable executive for Dr. Chisholm who suggested that you decrease your metoprolol dose from 100 mg daily to 50 mg daily (so half tablet once daily, but do not take it this evening). Continue your Norpace at the same dose and other medicines the same. Light activity only for the next day or 2. Check your heart rate and symptoms and return to the ER if you have worsening symptoms or consistent heart rate lower in the 30s etc. Call Dr. Chisholm's office early next week to update them on your vitals, heart rate, symptoms. Stay well-hydrated. Discharge Date/Time: 09/13/21 18:03
[2021-09-13 17:39] VITALS: BP 176/74
== END 2021-09-13 18:03 | disposition home or self-care (01) ==
LOC: ED 14:52
DX: R07.89 Other chest pain (principal); R00.1 Bradycardia, unspecified; I48.91 Unspecified atrial fibrillation; Z79.01 Long term (current) use of anticoagulants
CPT/HCPCS: 36415; 80053; 83690; 83735; 83880; 84484; 85025; 93005; 99284

== ENCOUNTER 2022-01-13 09:29 | Emergency (ER) | payer MEDICARE ==
--- NOTE | 2022-01-13 09:56 | ED Physician Documentation ---
History of Present Illness - Stated complaint Stated Complaint: FAST HEART RATE/SOA - Chief complaint Chief Complaint: Cardiac - History obtained from History obtained from: Patient, Family - History of Present Illness Timing: How many days ago (2) - Additonal information Additional information: 9-year-old female with a history of intermittent atrial fibrillation with rapid ventricular response feels her heart rate is more rapid than usual for her. She usually runs a heart rate in the 40-50 range with a history of hypertrophic cardiomyopathy. She has had a visit here in September for a slow heart rate and her metoprolol was decreased from 100bid to 50bid. She feels like she can feel her heart pounding out of her chest. Review of Systems Constitutional: denies: Fever Eyes: denies: Decreased vision Ears: denies: Ear pain Nose: denies: Congestion Throat: denies: Sore throat Cardiac: reports: Palpitations. denies: Chest pain / pressure Respiratory: reports: Dyspnea. denies: Cough GI: reports: Constipation. 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 HEENT: Chronic vision loss Psych: None Musculoskeletal: Osteoarthritis, Gout Derm: None - Past Surgical History Past Surgical History: Yes General: Appendectomy Ortho: Spine surgery - Present Medications Home Medications: Ambulatory Orders Medication Instructions Recorded Confirmed Disopyramide Phosphate [Norpace Cr] 200 mg PO BID 07/16/13 06/11/21 Metoprolol Tartrate 100 mg PO BID 07/16/13 06/11/21 Pregabalin [Lyrica] 100 mg PO HS 07/16/13 06/11/21 Apixaban [Eliquis] 5 mg ORAL BID 06/11/21 06/11/21 Atorvastatin Calcium [Lipitor] 80 mg PO HS 06/11/21 06/11/21 Methadone [Methadone Hcl] 5 mg PO BID 06/11/21 06/11/21 Oxycodone HCl 10 mg ORAL Q6HR PRN 06/11/21 06/11/21 Sumatriptan Succinate [Imitrex] 100 mg PO DAILY PRN 06/11/21 06/11/21 allopurinoL [Zyloprim] 100 mg PO DAILY 06/11/21 06/11/21 - Allergies Allergies/Adverse Reactions: Allergies Allergy/AdvReac Type Severity Reaction Status Date / Time No Known Drug Allergies Allergy Verified 09/13/21 15:16 - Social History Does the pt smoke?: No Smoking Status: Never smoker Does the pt drink ETOH?: Yes Does the pt have substance abuse?: No - Immunizations Immunizations are current?: Yes - POLST Patient has POLST: No PD ED PE NORMAL - Vitals Vital signs reviewed: Yes (hypertensive ) - General General: Alert and oriented X 3, No acute distress, Well developed/nourished - HEENT HEENT: Atraumatic, PERRL, EOMI - Neck Neck: Supple, no meningeal sign, No bony TTP - Cardiac Cardiac: RRR, No murmur - Respiratory Respiratory: No respiratory distress - Abdomen Abdomen: Normal bowel sounds, Soft, Non tender, Non distended, No organomegaly - Back Back: No CVA TTP, No spinal TTP - Derm Derm: Normal color, Warm and dry, No rash - Extremities Extremities: No deformity, No edema - Neuro Neuro: Alert and oriented X 3, sole skiver 2-12 intact, No motor deficit, No sensory deficit, Normal speech Eye Opening: Spontaneous Motor: Obeys Commands Verbal: Oriented GCS Score: 15 - Psych Psych: Normal mood, Normal affect Results - Vitals Vitals: Vital Signs - 24 hr 01/13/22 01/13/22 01/13/22 09:45 10:00 10:30 Temperature 36.7 C Heart Rate 87 86 85 Respiratory 14 19 21 Rate Blood Pressure 141/105 H 122/92 H 103/75 O2 Saturation 100 99 100 01/13/22 01/13/22 11:35 12:50 Temperature 36.7 C Heart Rate 80 80 Respiratory 13 15 Rate Blood Pressure 114/97 H 114/97 H O2 Saturation 100 100 Oxygen O2 Source Room air - Labs Labs: Laboratory Tests 01/13/22 01/13/22 01/13/22 09:59 09:59 09:59 WBC 6.2 RBC 4.23 Hgb 13.0 Hct 40.9 MCV 96.7 MCH 30.7 MCHC 31.8 L RDW 15.9 H Plt Count 143 MPV 12.9 H Neut # (Auto) 3.4 Lymph # (Auto) 2.0 [place] # (Auto) 0.5 Eos # (Auto) 0.2 Baso # (Auto) 0.0 Absolute Nucleated RBC 0.00 Nucleated RBC % 0.0 Sodium 138 Potassium 4.2 Chloride 100 L Carbon Dioxide 27 Anion Gap 11.0 BUN 26 H Creatinine 1.5 H Estimated GFR (MDRD) 33 L Glucose 118 H Calcium 9.5 Total Bilirubin 0.6 AST 25 ALT 19 Alkaline Phosphatase 78 Troponin I High Sens 11.8 Total Protein 7.2 Albumin 4.0 Globulin 3.2 Albumin/Globulin Ratio 1.3 Lipase 24 Urine Color Urine Clarity Urine pH Ur Specific [place] Urine Protein Urine Glucose (UA) Urine Ketones Urine Occult Blood Urine Nitrite Urine Bilirubin Urine Urobilinogen Ur Leukocyte Esterase Urine RBC Urine WBC Ur Squamous Epith Cells Urine Bacteria Ur Microscopic Review Urine Culture Comments 01/13/22 11:40 WBC RBC Hgb Hct MCV MCH MCHC RDW Plt Count MPV Neut # (Auto) Lymph # (Auto) [place] # (Auto) Eos # (Auto) Baso # (Auto) Absolute Nucleated RBC Nucleated RBC % Sodium Potassium Chloride Carbon Dioxide Anion Gap BUN Creatinine Estimated GFR (MDRD) Glucose Calcium Total Bilirubin AST ALT Alkaline Phosphatase Troponin I High Sens Total Protein Albumin Globulin Albumin/Globulin Ratio Lipase Urine Color YELLOW Urine Clarity HAZY Urine pH 6.0 Ur Specific [place] 1.015 Urine Protein NEGATIVE Urine Glucose (UA) NEGATIVE Urine Ketones NEGATIVE Urine Occult Blood NEGATIVE Urine Nitrite NEGATIVE Urine Bilirubin NEGATIVE Urine Urobilinogen 0.2 (NORMAL) Ur Leukocyte Esterase MODERATE H Urine RBC 0-5 Urine WBC 6-10 H Ur Squamous Epith Cells MOD Squamous H Urine Bacteria Moderate H Ur Microscopic Review INDICATED Urine Culture Comments NOT INDICATED - Rads (name of study) chest Radiology: Prelim report reviewed (Impression cardiomegaly without vascular congestion aortic atherosclerosis.), EMP read indepedently, See rad report Procedures - IVC sono (time) 0950 Bedside IVC sono: IVC measures (cm) (1.65), Euvolemia PD MEDICAL DECISION MAKING - ED course Complexity details: reviewed results, re-evaluated patient, considered differential, d/w patient, d/w family, d/w data virtualization consultant ED course: 81-year-old female with a sensation that her heart is pounding too fast has a heart rate of 80 it is regular and it is not in atrial fibrillation. She has recently reduced her dose of metoprolol and we contacted her motion picture equipment supervisor Dr. Chisholm who recommended we increase her dose to 75 mg twice per day. Patient was given an additional 50 mg of metoprolol here. Departure - Departure Disposition: 01 Home, Self Care Clinical Impression: Rapid resting heart rate Condition: Stable Instructions: Tachycardia Follow-Up: Darrin Salinas MD [Primary Care Provider] - Perfecto Chisholm MD [Physician No Access] - Comments: Aye, today looks like you are in a sinus rhythm with a rate of about 80. This is faster than your normal used to and Dr. Chisholm has suggested we change your dose of metoprolol to 75 mg twice per day. Discharge Date/Time: 01/13/22 12:50
[2022-01-13 10:06] LABS: BASOPHILS % (AUTO) 0.6 %; EOSINOPHILS # (AUTO) 0.2 10^3/uL (0.0-0.7); EOSINOPHILS % (AUTO) 3.2 %; HCT - HEMATOCRIT 40.9 % (37.0-47.0); LYMPHOCYTES % (AUTO) 31.9 %; MEAN CORPUSCULAR HEMOGLOBIN 30.7 pg (27.0-31.0); MEAN CORPUSCULAR HGB CONC 31.8 g/dL (32.0-36.0); MEAN CORPUSCULAR VOLUME 96.7 fL (81.0-99.0); MEAN PLATELET VOLUME 12.9 fL (7.9-10.8); MONOCYTES # (AUTO) 0.5 10^3/uL (0.0-1.0); MONOCYTES % (AUTO) 8.5 %; NEUTROPHILS # (AUTO) 3.4 10^3/uL (1.5-6.6); NEUTROPHILS % (AUTO) 55.5 %; PLT - PLATELET COUNT 143 10^3/uL (130-450); RED BLOOD COUNT 4.23 10^6/uL (4.20-5.40); RED CELL DISTRIBUTION WIDTH 15.9 % (12.0-15.0); WHITE BLOOD COUNT 6.2 x10^3/uL (4.8-10.8)
[2022-01-13 10:21] LABS: ALBUMIN/GLOBULIN RATIO 1.3 (1.0-2.2); BILIRUBIN,TOTAL 0.6 mg/dL (0.2-1.0); CALCIUM 9.5 mg/dL (8.5-10.3); CREATININE 1.5 mg/dL (0.4-1.0); POTASSIUM 4.2 mmol/L (3.5-5.0); TOTAL PROTEIN 7.2 g/dL (6.7-8.2)
--- NOTE | 2022-01-13 10:54 | XRAY Report ---
PROCEDURE: Chest 1 View X-Ray INDICATIONS: chest pain TECHNIQUE: One view of the chest was acquired. COMPARISON: 09/13/2021 FINDINGS: Surgical changes and devices: None. Lungs and pleura: No pleural effusions or pneumothorax. Lungs are clear. Mediastinum: Heart size is enlarged. No vascular congestion present. Atherosclerotic vascular calcifi cation noted in the aortic arch. Bones and chest wall: No suspicious bony lesions. Overlying soft tissues appear unremarkable. IMPRESSION: [place] without vascular congestion Aortic atherosclerosis Reviewed by: Lamont Cerrato MD on 01/13/2022 9:53 AM RTI Approved by: Lamont Cerrato MD on 01/13/2022 9:53 AM TRI Station ID: [id number]
[2022-01-13 11:46] VITALS: BP 114/97
[2022-01-13 11:50] LABS: BILIRUBIN,URINE NEGATIVE (NEGATIVE); GLUCOSE, URINE (UA) NEGATIVE (NEGATIVE); KETONES,URINE (UA) NEGATIVE (NEGATIVE); LEUKOCYTE ESTERASE, URINE MODERATE (NEGATIVE); NITRITE,URINE NEGATIVE (NEGATIVE); OCCULT BLOOD,URINE NEGATIVE (NEGATIVE); PROTEIN,URINE NEGATIVE (NEGATIVE); UROBILINOGEN,URINE 0.2 (NORMAL) E.U./dL (NORMAL)
[2022-01-13 11:54] LABS: CLARITY,URINE HAZY (CLEAR)
[2022-01-13] MEDS ORDERED: METOPROLOL TARTRATE 50 MG TABLET PO STA (11:58)
[2022-01-13 12:03] LABS: RBC,URINE 0-5 /HPF (0-5); SQUAMOUS EPITHELIAL CELL,UR MOD Squamous (<= Few)
[2022-01-13 12:04] LABS: BACTERIA,URINE Moderate /HPF (None Seen)
== END 2022-01-13 12:50 | disposition home or self-care (01) ==
LOC: ED 09:29
DX: R00.0 Tachycardia, unspecified (principal); I48.20 Chronic atrial fibrillation, unspecified; Z79.01 Long term (current) use of anticoagulants
CPT/HCPCS: 36415; 71045; 80053; 81001; 83690; 84484; 85025; 93005; 99283; 99284; A9270; 81003; 87086

== ENCOUNTER 2022-01-23 09:20 | Inpatient (IN) | payer MEDICARE ==
--- NOTE | 2022-01-23 09:52 | ED Physician Documentation ---
PD HPI CHEST PAIN - Stated complaint Stated Complaint: CHEST PX - Chief complaint Chief Complaint: Cardiac - History obtained from History obtained from: Patient - History of Present Illness Timing - onset: How many days ago (several days to a week.) Timing - duration: Days (several days to a week of worsening fatigue, confused, general weakness. Had difficulty getting out of bed this morning.) Timing - details: Gradual onset, Still present Quality: Tightness, Other (has not had fast heart rate feeling, but is concerned might be in fast atrial fib.) Location: Left chest Improved by: Rest Worsened by: Exertion Associated symptoms: Shortness of air, General Weakness, Palpitations. No: Nausea, Vomiting, Feeling faint / dizzy, Cough Similar symptoms before: Has not had sx before (she has not had this current symptoms of fatigue, general weakness, feeling confused. Has had dyspnea previously. Not on diuretics.) Recently seen: Clinic (She was seen by cardiology office provider a week ago with instructions to resume 100 mg and hold it down to 50 mg if heart rate less than 70 that morning.), Emergency Dept (Seen 10 days ago in the ER for feeling of fast heart rate at times. Had normal labs and EKG sinus rhythm. Add metoprolol increased from 50 to 75 mg.) Review of Systems Constitutional: denies: Fever Nose: denies: Rhinorrhea / runny nose, Congestion Throat: denies: Sore throat Cardiac: reports: Palpitations, Pedal edema (mild baseline, does not feel increased from usual.) Respiratory: reports: Dyspnea. denies: Cough, Wheezing GI: denies: Abdominal Pain, Nausea, Vomiting Neurologic: reports: Generalized weakness. 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 HEENT: Chronic vision loss Psych: None Musculoskeletal: Osteoarthritis, Gout Derm: None - Past Surgical History Past Surgical History: Yes General: Appendectomy Ortho: Spine surgery - Present Medications Home Medications: Ambulatory Orders Medication Instructions Recorded Confirmed Disopyramide Phosphate [Norpace Cr] 200 mg PO BID 07/16/13 01/23/22 Metoprolol Tartrate 100 mg PO BID 07/16/13 01/23/22 Pregabalin [Lyrica] 100 mg PO HS 07/16/13 01/23/22 Apixaban [Eliquis] 5 mg ORAL BID 06/11/21 01/23/22 Atorvastatin Calcium [Lipitor] 80 mg PO HS 06/11/21 01/23/22 Methadone [Methadone Hcl] 5 mg PO DAILY 06/11/21 01/23/22 Sumatriptan Succinate [Imitrex] 100 mg PO DAILY PRN 06/11/21 01/23/22 allopurinoL [Zyloprim] 100 mg PO DAILY 06/11/21 01/23/22 - Allergies Allergies/Adverse Reactions: Allergies Allergy/AdvReac Type Severity Reaction Status Date / Time No Known Drug Allergies Allergy Verified 01/23/22 09:37 - Social History Does the pt smoke?: No Smoking Status: Never smoker Does the pt drink ETOH?: Yes Does the pt have substance abuse?: No - Immunizations Immunizations are current?: Yes - POLST Patient has POLST: No PD ED PE NORMAL - Vitals Vital signs reviewed: Yes - General General: Alert and oriented X 3 (does seem slightly sluggish answering questions and repeats answers often. ), Well developed/nourished - HEENT HEENT: Pharynx benign - Neck Neck: Supple, no meningeal sign, No adenopathy - Cardiac Cardiac: RRR - Respiratory Respiratory: No: Clear bilaterally (faint fine crackles just at bases. No coarse sounds. ) - Abdomen Abdomen: Soft, Non tender - Female Female : Deferred - Rectal Rectal: Deferred - Back Back: No CVA TTP - Derm Derm: Normal color, Warm and dry - Extremities Extremities: No calf tenderness / cord, Other (1+ edema in both ankles/lower legs. ) - Neuro Neuro: Alert and oriented X 3, No motor deficit, Normal speech Eye Opening: To Voice Motor: Obeys Commands Verbal: Oriented GCS Score: 14 Results - Vitals Vitals: Vital Signs - 24 hr 01/23/22 01/23/22 01/23/22 09:35 10:30 12:03 Temperature 36.5 C Heart Rate 72 60 89 Respiratory 18 22 19 Rate Blood Pressure 138/94 H 124/73 O2 Saturation 99 97 Oxygen O2 Source Room air - EKG (time done) 09:28 Rate: Rate (enter#) (66) Rhythm: NSR (P waves visible in just couple leads but appears sinus.) Intervals: Prolonged [place], LBBB Ischemia: Normal ST segments. No: ST elevation c/w ischemia, ST depression, Hyperacute T waves - Labs Labs: Laboratory Tests 01/23/22 01/23/22 01/23/22 09:57 09:57 09:57 WBC 12.2 H RBC 4.11 L Hgb 12.5 Hct 39.4 MCV 95.9 MCH 30.4 MCHC 31.7 L RDW 15.2 H Plt Count 165 MPV 12.6 H Neut # (Auto) 9.0 H Lymph # (Auto) 2.2 [place] # (Auto) 0.9 Eos # (Auto) 0.1 Baso # (Auto) 0.0 Absolute Nucleated RBC 0.02 Nucleated RBC % 0.2 Manual Slide Review Indicated WBC Morphology 2+ REACTIVE LYMPHS Sodium 122 L Potassium 6.0 H* Chloride 88 L Carbon Dioxide 23 Anion Gap 11.0 BUN 27 H Creatinine 1.9 H Estimated GFR (MDRD) 25 L Glucose 117 H Calcium 9.2 Magnesium Total Bilirubin 0.9 AST 54 H ALT 56 Alkaline Phosphatase 94 Troponin I High Sens 10.8 B-Natriuretic Peptide Total Protein 6.8 Albumin 4.0 Globulin 2.8 Albumin/Globulin Ratio 1.4 Lipase 20 L TSH 01/23/22 01/23/22 01/23/22 09:57 09:57 09:57 WBC RBC Hgb Hct MCV MCH MCHC RDW Plt Count MPV Neut # (Auto) Lymph # (Auto) [place] # (Auto) Eos # (Auto) Baso # (Auto) Absolute Nucleated RBC Nucleated RBC % Manual Slide Review WBC Morphology Sodium Potassium Chloride Carbon Dioxide Anion Gap BUN Creatinine Estimated GFR (MDRD) Glucose Calcium Magnesium 2.0 Total Bilirubin AST ALT Alkaline Phosphatase Troponin I High Sens B-Natriuretic Peptide 1342 H Total Protein Albumin Globulin Albumin/Globulin Ratio Lipase TSH 7.37 H 01/23/22 11:15 WBC RBC Hgb Hct MCV MCH MCHC RDW Plt Count MPV Neut # (Auto) Lymph # (Auto) [place] # (Auto) Eos # (Auto) Baso # (Auto) Absolute Nucleated RBC Nucleated RBC % Manual Slide Review WBC Morphology Sodium Potassium 6.4 H* Chloride Carbon Dioxide Anion Gap BUN Creatinine Estimated GFR (MDRD) Glucose Calcium Magnesium Total Bilirubin AST ALT Alkaline Phosphatase Troponin I High Sens B-Natriuretic Peptide Total Protein Albumin Globulin Albumin/Globulin Ratio Lipase TSH - Rads (name of study) chest xray Radiology: Prelim report reviewed (trace right pleural effusion. No overt edema. ), See rad report PD MEDICAL DECISION MAKING - ED course Complexity details: reviewed results, considered differential (The patient's symptoms can certainly relate to hyponatremia coupled with some renal insufficiency and high potassium. No focal deficits and so I did not do any neuroimaging. Her potassium was a bit elevated so initiated some albuterol insulin with glucose. Cautious amount normal saline infusion), d/w patient, d/w technical healthcare consultant (Hospitalist) Departure - Departure Disposition: 66 [facility] DC/Xfer Clinical Impression: General weakness, Renal insufficiency, Acute hyponatremia, Hyperkalemia Dyspnea Qualifiers: Dyspnea type: shortness of breath Qualified Code(s): R06.02 - Shortness of breath CHF (congestive heart failure) Qualifiers: Heart failure type: unspecified Heart failure chronicity: unspecified Qualified Code(s): I50.9 - Heart failure, unspecified Condition: Stable Record reviewed to determine appropriate education?: Yes
[2022-01-23 10:05] LABS: BASOPHILS % (AUTO) 0.3 %; EOSINOPHILS # (AUTO) 0.1 10^3/uL (0.0-0.7); EOSINOPHILS % (AUTO) 0.7 %; HCT - HEMATOCRIT 39.4 % (37.0-47.0); HGB - HEMOGLOBIN 12.5 g/dL (12.0-16.0); LYMPHOCYTES # (AUTO) 2.2 10^3/uL (1.5-3.5); LYMPHOCYTES % (AUTO) 17.6 %; MEAN CORPUSCULAR HEMOGLOBIN 30.4 pg (27.0-31.0); MEAN CORPUSCULAR HGB CONC 31.7 g/dL (32.0-36.0); MEAN CORPUSCULAR VOLUME 95.9 fL (81.0-99.0); MEAN PLATELET VOLUME 12.6 fL (7.9-10.8); MONOCYTES # (AUTO) 0.9 10^3/uL (0.0-1.0); MONOCYTES % (AUTO) 7.5 %; NEUTROPHILS % (AUTO) 73.5 %; NRBC ABSOLUTE COUNT (AUTO) 0.02 x10^3/uL; NUCLEATED RED BLOOD CELLS AUTO 0.2 /100WBC; PLT - PLATELET COUNT 165 10^3/uL (130-450); RED BLOOD COUNT 4.11 10^6/uL (4.20-5.40); RED CELL DISTRIBUTION WIDTH 15.2 % (12.0-15.0); WHITE BLOOD COUNT 12.2 x10^3/uL (4.8-10.8)
[2022-01-23 10:06] LABS: SLIDE REVIEW? Indicated
--- NOTE | 2022-01-23 10:16 | XRAY Report ---
PROCEDURE: Chest 1 View X-Ray INDICATIONS: Chest pain TECHNIQUE: One view of the chest was acquired. COMPARISON: 01/13/2022 FINDINGS: Surgical changes and devices: None. Lungs and pleura: No pneumothorax. Lungs are clear. Trace right-sided pleural fluid collection. Mediastinum: Mediastinal contours appear normal. Heart is enlarged. Bones and chest wall: No suspicious bony lesions. Overlying soft tissues appear unremarkable. IMPRESSION: Trace right-sided pleural fluid collection. Reviewed by: Miryam Bustos MD, PhD on 01/23/2022 10:14 AM PDT Approved by: Miryam Bustos MD, PhD on 01/23/2022 10:14 AM PDT Station ID: [id number]
[2022-01-23 10:32] LABS: WBC MORPHOLOGY (MULTIPLE) 2+ REACTIVE LYMPHS (NORMAL)
[2022-01-23 10:39] LABS: ALBUMIN/GLOBULIN RATIO 1.4 (1.0-2.2); BILIRUBIN,TOTAL 0.9 mg/dL (0.2-1.0); CALCIUM 9.2 mg/dL (8.5-10.3); CREATININE 1.9 mg/dL (0.4-1.0); TOTAL PROTEIN 6.8 g/dL (6.7-8.2)
[2022-01-23] MEDS ORDERED: SODIUM CHLORIDE 0.9% 1,000 ML IV STA (11:00)
[2022-01-23] MEDS ORDERED: INSULIN REGULAR HUMAN 100 UNIT/1 ML 10 ML MDV IVP STA (11:33)
[2022-01-23] MEDS ORDERED: DEXTROSE 10% 250 ML IV STA (11:34)
[2022-01-23] MEDS ORDERED: ALBUTEROL NEB 2.5 MG/3 ML INH STA (11:35)
[2022-01-23] MEDS ORDERED: SODIUM CHLORIDE FLUSH 0.9% 10 ML SYRINGE IVP PRN (12:42)
[2022-01-23] MEDS ORDERED: TEMAZEPAM 15 MG CAPSULE PO PRN (12:42)
[2022-01-23 13:06] LABS: MAGNESIUM 2.1 mg/dL (1.7-2.8); URIC ACID 6.7 mg/dL (2.6-7.2)
[2022-01-23] MEDS ORDERED: SODIUM POLYSTYRENE SULFONATE 15 GM/60 ML BOTTLE PO PRN (13:10)
[2022-01-23] MEDS ORDERED: SODIUM POLYSTYRENE SULFONATE 15 GM/60 ML BOTTLE PO STA (13:10)
[2022-01-23] MEDS ORDERED: CALCIUM ACETATE 667 MG CAPSULE PO STA (13:11)
[2022-01-23 13:15] LABS: B. PARAPERTUSSIS- RESP PCR PAN NOT DETECTED; B. PERTUSSIS- RESP PCR PANEL NOT DETECTED; C. PNEUMONIAE- RESP PCR PANEL NOT DETECTED; CORONAVIRUS 229E-RESP PCR NOT DETECTED; CORONAVIRUS HKU1-RESP PCR NOT DETECTED; CORONAVIRUS NL63-RESP PCR NOT DETECTED; CORONAVIRUS OC43-RESP PCR NOT DETECTED; HUMAN METAPNEUMOVIRUS NOT DETECTED; INFLUENZA A- RESP PCR PANEL NOT DETECTED; INFLUENZA B - RESP PCR PANEL NOT DETECTED; M. PNEUMONIAE- RESP PCR PANEL NOT DETECTED; PARAINFLUENZA VIRUS 1 NOT DETECTED; PARAINFLUENZA VIRUS 2 NOT DETECTED; PARAINFLUENZA VIRUS 3 NOT DETECTED; PARAINFLUENZA VIRUS 4 NOT DETECTED; RHINOVIRUS/ENTEROVIRUS NOT DETECTED; RSV- RESP PCR PANEL NOT DETECTED; SARS-CoV-2 -RESP PCR PANEL NOT DETECTED
--- NOTE | 2022-01-23 13:24 | HISTORY & PHYSICAL EXAMINATION ---
Chief Complaint - Chief Complaint Chief Complaint: Generalized weakness, fatigue, confusion, dyspnea History of Present Illness - Admitted From Admitted From:: ED - History Obtained From Records Reviewed: yes History obtained from: Patient Exam Limitations: none - History of Present Illness HPI Comment/Other: This is a pleasant 81-year-old female with a past medical history significant for diastolic dysfunction grade 2, CKD-3, atherosclerosis of the aorta, cardiomegaly, chronic atrial fibrillation on Eliquis, hypertension, hyperlipidemia, who follows Dr. Chisholm as her primary hadoop infrastructure architect who presents to [facility] emergency department with several day history of fatigue, orthopnea, dyspnea and lightheadedness. Patient also states that she has intermittent palpitations for which patient was seen by cardiology about a week ago with instructions to resume her metoprolol 100 mg and to hold it down to 50 mg if her heart rate was less than 70 bpm. She was seen approximately 10 days ago in the ER feeling with palpitations and her metoprolol was increased from 50 to 75 mg. Her EKG at that time showed normal sinus rhythm and her labs were essentially normal. On this visitation patient was found to have a sodium of 122 with a potassium of 6.0 and a repeat of 6.4 along with creatinine of 1.9 for which her baseline creatinine ranges between 1.0-1.5. In addition her BNP was elevated at thousand 342, AST of 54, bicarb of 23 with chloride of 88, BUN of 27, glucose of 117. TSH elevated at 7.30, CXR showed trace right-sided pleural effusion and EKG showed baseline LBBB. Patient denied chest pain however felt a chest comfort with associated orthopnea and dyspnea that she relates as her symptomatology. Her respiratory rate was 18-30 breaths/min, urine output was decreased, 96% O2 saturation on room air, and her systolic blood pressures ranged from 120s to 130s with heart rate controlled at 60s to 80s. Patient denied fevers, nausea, emesis, visual disturbances, GI/ symptoms, flank pain, maculopapular rashes or joint tenderness. Patient is not on diuretic and is on methadone and Lyrica along with Norpace and metoprolol and atorvastatin and takes Imitrex as well as allopurinol. Hospitalist service was requested for further evaluation and management treatment. 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 TIG WELDER: reports: Ectopic : reports: None HEENT: reports: Chronic vision loss Psych: reports: None Musculoskeletal: reports: Osteoarthritis, Gout Derm: reports: None MRSA Hx?: No - Past Surgical History General: reports: Appendectomy Ortho: reports: Spine surgery - POLST Patient has POLST: No Meds/Allgy - Home Medications Home Medications: Ambulatory Orders Medication Instructions Recorded Confirmed Disopyramide Phosphate [Norpace Cr] 200 mg PO BID 07/16/13 01/23/22 Metoprolol Tartrate 100 mg PO BID 07/16/13 01/23/22 Pregabalin [Lyrica] 100 mg PO HS 07/16/13 01/23/22 Apixaban [Eliquis] 5 mg ORAL BID 06/11/21 01/23/22 Atorvastatin Calcium [Lipitor] 80 mg PO HS 06/11/21 01/23/22 Methadone [Methadone Hcl] 5 mg PO DAILY 06/11/21 01/23/22 Sumatriptan Succinate [Imitrex] 100 mg PO DAILY PRN 06/11/21 01/23/22 allopurinoL [Zyloprim] 100 mg PO DAILY 06/11/21 01/23/22 - Allergies Allergies/Adverse Reactions: Allergies Allergy/AdvReac Type Severity Reaction Status Date / Time No Known Drug Allergies Allergy Verified 01/23/22 09:37 Review of Systems - Constitutional Constitutional: reports: Fatigue, Weakness - Eyes Eyes: denies: Pain, Blurred vision, Field loss, Vision loss, Dipolpia - Ears, Nose & Throat Ears, Nose & Throat: denies: Tinnitus, Vertigo - Cardiovascular Cariovascular: reports: Palpitations, Lightheadedness, Exertional dyspnea, Decr. exercise tolerance, Orthopnea. denies: Chest pain, Syncope - Respiratory Respiratory: reports: Orthopnea, SOB with exertion. denies: Cough, Sputum production, Wheezing, Hemoptysis, SOB at rest, Pleuritic pain - Gastrointestinal Gastrointestinal: denies: Abdominal pain, Abdominal distention, Constipation, Diarrhea, Bloody stools, Coffee grounds emesis, Reflux/heartburn - Genitourinary Genitourinary: denies: Dysuria, Frequency, Urgency, Hematuria - Musculoskeletal Musculoskeletal: denies: Muscle pain, Back pain, Muscle aches - Integumentary Integumentary: denies: Rash, Pruritis, Pigment changes - Neurological Neurological: reports: General weakness. denies: Memory problems, Pre-existing deficit, Seizures - Psychiatric Psychiatric: denies: Depression, Anxiety - Endocrine Endocrine: denies: Polyuria, Polydypsia, Polyphagia - Hematologic/Lymphatic Hematologic/Lymphatic: denies: Anemia, Petechiae, Blood clots - All Other Systems All Other Systems: reports: Reviewed and negative Prior Level of Functionality: Patient has good baseline functional capacity and ambulates independently. Exam - Vital Signs Vital Signs: Vital Signs x48h Temp Pulse Resp BP Pulse Ox 01/23/22 12:03 89 19 01/23/22 12:00 69 30 H 131/85 H 96 01/23/22 10:30 60 22 124/73 97 01/23/22 09:35 36.5 C 72 18 138/94 H 99 - Physical Exam General Appearance: positive: No acute distress, Alert Eyes Bilateral: positive: Normal inspection, PERRL, EOMI ENT: positive: ENT inspection nml, Pharynx nml, No signs of dehydration Neck: positive: Nml inspection, Thyroid nml, No JVD, Trachea midline. negative: Thyromegaly Respiratory: positive: Chest non-tender, No respiratory distress, Breath sounds nml Cardiovascular: positive: Regular rate & rhythm, No murmur, No gallop. negative: JVD present, Gallop/S4 Peripheral Pulses: positive: 2+ Abdomen: positive: Non-tender, No organomegaly, Nml bowel sounds, No distention. negative: Tenderness Back: positive: Nml inspection Skin: positive: Color nml, No rash, Warm. negative: Cyanosis, Pallor Extremities: positive: Non-tender, Full ROM, Nml appearance, Pedal edema Neurologic/Psychiatric: positive: Oriented x3, CN's nml (2-12) Conclusion/Plan - Problem List (1) Acute hyponatremia Conclusion/Plan: Patient's sodium was at 122 on admission for which prior sodium level was 130 on 01/13 and has been as low as 133 in the years of 2015 in 2018. Unclear of patient's hyponatremia as she appears to be euvolemic to hypertensive now with systolic blood pressures in the 170s. Patient denies polydipsia or water intoxication as she drinks about 1.5 L in a days time and was on hydrochlorothiazide but had [facility]. Patient has concomitant renal dysfunction as she has history of chronic kidney disease and in reviewing MAR there is no diuretics on board or anything that would precipitate diureses and essentially patient with no other medications that would precipitate an SIADH picture. Serum osmolality, urine osmolality pending. Urine sodium less than 12 which would indicate likely diastolic dysfunction hypervolemic hyponatremia. She is also hypochloremic as well and will calculate sodium correction no more than 0.5 mEq/L/h to avoid ODS. BMP q6 hr. Renal panel in am. (2) Hyperkalemia Conclusion/Plan: Unclear of etiology other than acute kidney injury in the setting of patient underlying arrhythmia diastolic dysfunction and being on metoprolol and Norpace for which it is unclear if patient had hypotensive events. She has been off of hydrochlorothiazide and she is not on potassium supplementation which would be unusual to have hyperkalemia to this degree. She is received Kayexalate 15 g p.o. x1 and will place on 15 g p.o. as needed for potassiums above 6.0. He does not show hyperacute T waves. (3) Acute kidney injury superimposed on CKD Conclusion/Plan: Patient with a creatinine of 1.9 upon admission with baseline ranging between 1.0 and 1.5 with a history of chronic kidney disease stage III. Patient has underlying hypertension. Unclear if patient had a hypoperfusion in the setting of taking high doses of Lopressor and Norpace and has been off hydrochlorothiazide for approximately more than a week which are the most common offending agents at this time to be identified. Renal work-up was initiated with renal ultrasound showing mild bilateral renal atrophy with urinary retention with postvoid residual of bladder of 450 cc which would explain possible postobstructive process in that regard. We will place a Iyer catheter for monitoring of strict I's and O's. BUN and creatinine ratio and urine protein does not appear to be abnormal. Uric acid, cortisol levels were unremarkable. TSH was elevated but free T4 was normal. Serum and urine osmolality to follow. Patient to receive IV fluids for sodium correction, to avoid fluid overload given her diastolic dysfunction CHF, avoid nephrotoxic agents, correct underlying electrolyte disturbances. (4) Atrial fibrillation and flutter Conclusion/Plan: Patient was seen by Dr. Chisholm nurse practitioner on for her atrial fibrillation and atypical atrial flutter for which patient was scheduled for cardioversion at [facility] in [place] and was instructed on taking her Eliquis and increasing her Lopressor 200 mg p.o. twice daily and never his heart rate less than 70 to go back on metoprolol 50 mg twice daily due to her conversion to sinus rhythm. She had also been on Norpace during this time. Patient's EKG shows this rhythm at 66 bpm with atrial premature complexes and couplets with a short NE interval and a left bundle branch block. Her troponin was essentially unremarkable. Would continue Eliquis at a renal adjusted dose given her age and her weight. Would also defer beta-blockade as well as Norpace given her current heart rate on telemetry showing slow rate atrial fibrillation in the 40s to 50s. Consider current medical management with IV fluids and correction of underlying electrolytes namely hyperkalemia and hyponatremia her magnesium level appears to be normal. We will obtain an echocardiogram to evaluate for structural or valvular heart disease. She does have a history of hypertrophic obstructive cardiomyopathy. Consider consult [facility] cardiology service at [phone]. (5) Acute on chronic diastolic (congestive) heart failure Conclusion/Plan: She presented with SOB, weakness, fatigue w/ some orthopnea per history. Patient's primary hadoop infrastructure architect is Dr. Chisholm and was previously instructed to take Lopressor 100 mg p.o. twice daily and closely monitor her heart rate but had reduced this down to 50 mg and was again instructed to increase to 75 mg recently due to patient experiencing weakness and fatigue for which she was seen 10 days ago days ago at the emergency department at the time with an EKG unremarkable and labs unremarkable. Her BNP is elevated at thousand 342 and her prior 2D echo in 03/28 2019 shows a grade 2 diastolic dysfunction EF of 70-75%. Patient will be on IV fluids and will attempt to avoid fluid overload given her diastolic dysfunction however in the setting of decreased urinary output and hyponatremia will need to monitor carefully. Holding off of diuretics for now given patient's hyponatremia and ELBERT. She may be possibly developing acute cardiorenal syndrome however her systolic blood pressures high. (6) Leukocytosis Conclusion/Plan: Unclear of source of infection although she has abnormal UA and may have a UTI given her urinary retention. She lacks fever, flank pain or or other s/s of infection. UCx pending. Qualifiers: Leukocytosis type: lymphocytosis Qualified Code(s): D72.820 - Lymphocytosis (symptomatic) (7) General weakness Conclusion/Plan: Likely as it pertains to her electrolyte disturbance. Correct underlying medical conditions. (8) Malignant hypertension Conclusion/Plan: SBP in ED were in 130's however when she landed in ICU they soared w/ SBP 170's and DBP>100. Would place on IV hydralazine prn w/ parameters and hold existing home lopressor and norpace give her slow rate afib w/ atypical aflutter. (9) Acute urinary retention Conclusion/Plan: Renal US shows 450 cc of retained urine. Place FC and monitor UO while on IVF's. She has an abnormal UA but w/o evidence of hydro, stones or s/s of UTI. Will start flomax to improve urinary retention at level of urethra. (10) Abnormal finding on urinalysis Conclusion/Plan: Asymptomatic bacteriuria w/o s/s of infection but does have a leukocytosis and no fever. Will await Ucx results. Defer off abx for now. - Lab Results Fish Bones: 01/23/22 09:57 01/23/22 12:45 - Diagnostic Imaging Results Diagnostic Imaging Results: positive: Final report reviewed - EKG Results EKG Interpreted Independently: Yes EKG Comparison: Unchanged from prior EKG Core Measures - Anticipated LOS I expect patient to be DC'd or transferred within 96 hours.: Yes - DVT/VTE - Prophylaxis VTE/DVT Device ordered at admit?: Yes - AMI - Statin at Admit Aspirin Prescribed on Admit: Yes
[2022-01-23 13:31] LABS: BILIRUBIN,URINE NEGATIVE (NEGATIVE); CLARITY,URINE HAZY (CLEAR); GLUCOSE, URINE (UA) NEGATIVE (NEGATIVE); KETONES,URINE (UA) NEGATIVE (NEGATIVE); LEUKOCYTE ESTERASE, URINE MODERATE (NEGATIVE); NITRITE,URINE NEGATIVE (NEGATIVE); OCCULT BLOOD,URINE NEGATIVE (NEGATIVE); PH,URINE 6.5 PH (5.0-7.5); PROTEIN,URINE NEGATIVE (NEGATIVE); UROBILINOGEN,URINE 0.2 (NORMAL) E.U./dL (NORMAL)
[2022-01-23 13:35] LABS: BACTERIA,URINE Moderate /HPF (None Seen); RBC,URINE 0-5 /HPF (0-5); SQUAMOUS EPITHELIAL CELL,UR FEW Squamous (<= Few); WBC,URINE 0-3 /HPF (0-5)
[2022-01-23 13:39] LABS: POTASSIUM,URINE 44.7 mmol/L; SODIUM, URINE < 12.0 mmol/L; TOTAL PROTEIN,URINE RANDOM 14 mg/dL
[2022-01-23 13:49] LABS: CREATININE,URINE 106.9 mg/dL; PROTEIN/CREATININE RATIO,URINE 0.1 (<=0.2)
[2022-01-23] MEDS: SODIUM CHLORIDE 0.9% 1,000 ML IV SCH ×2 (15:00→21:05)
--- NOTE | 2022-01-23 15:12 | Ultrasound Report ---
PROCEDURE: Retroperitoneal INDICATIONS: Evaluate for hydronephrosis, stones TECHNIQUE: Real-time scanning was performed of the retroperitoneal organs, with image documentation. COMPARISON: None. FINDINGS: Kidneys: Kidneys are normal in size. Right kidney measures 8.7 cm long; left kidney measures 8.3 cm long. Right renal cortical thickness is 1.0 cm; left renal cortical thickness is 1.1 cm. No solid masses, hydronephrosis, or nephrolithiasis. Pancreas: Visualized portions of the pancreas are sonographically normal. Aorta: Visualized aorta is normal in caliber at 3 cm or less. Iliac arteries: Proximal common iliac arteries are normal in caliber at 2.5 cm or less. IVC: Intrahepatic inferior vena cava is patent. Bladder: Pre-void bladder volume is 334 mL. Post-void residual is 450 mL. Pre-void images demonstr ate no intraluminal masses or stones. On pre-void images, both the right and left ureteral jets are noted with color Doppler interrogation. (Of note, ureteral jets may not be detectable in up to 25% o f cases due to insufficient differences in specific gravity between ureteral and bladder urine). Miscellaneous: No free abdominal fluid. IMPRESSION: 1. No hydronephrosis. 2. Mild bilateral renal atrophy. 3. Large postvoid residual urinary bladder volume. Reviewed by: Miryam Bustos MD, PhD on 01/23/2022 3:11 PM PDT Approved by: Miryam Bustos MD, PhD on 01/23/2022 3:11 PM PDT Station ID: [id number]
[2022-01-23] MEDS ORDERED: ISOSORBIDE MONONITRATE ER 30 MG TABLET PO SCH (16:37)
[2022-01-23] MEDS: TAMSULOSIN 0.4 MG CAPSULE PO SCH (16:54)
[2022-01-23 19:33] LABS: CREATININE 1.7 mg/dL (0.4-1.0); POTASSIUM 5.4 mmol/L (3.5-5.0)
[2022-01-23] MEDS ORDERED: FAMOTIDINE 20 MG TABLET PO SCH (21:00)
[2022-01-23] MEDS ORDERED: APIXABAN 2.5 MG TABLET PO SCH (21:00)
[2022-01-23] MEDS ORDERED: PREGABALIN 100 MG CAPSULE PO SCH (21:00)
[2022-01-23] MEDS: ATORVASTATIN 40 MG TABLET PO SCH (21:04)
[2022-01-23] MEDS: PREGABALIN 25 MG CAPSULE PO SCH (21:05)
[2022-01-23] MEDS: SODIUM CHLORIDE FLUSH 0.9% 10 ML SYRINGE IVP SCH (21:05)
[2022-01-23] MEDS ORDERED: CALCIUM GLUCONATE IN NS 0.9% 2,000 MG/100 ML BAG IV ONE (23:32)
[2022-01-24] MEDS: SODIUM CHLORIDE FLUSH 0.9% 10 ML SYRINGE IVP SCH ×3 (00:25→17:47)
[2022-01-24] MEDS: METOPROLOL 5 MG/5 ML VIAL IVP PRN ×4 (00:25→18:44)
[2022-01-24 00:35] LABS: CALCIUM 8.5 mg/dL (8.5-10.3); CREATININE 1.4 mg/dL (0.4-1.0); POTASSIUM 4.6 mmol/L (3.5-5.0)
[2022-01-24] MEDS: SUMAtriptan 25 MG TABLET PO PRN (02:10)
[2022-01-24] MEDS ORDERED: ACETAMINOPHEN 325 MG TABLET PO PRN (02:28)
[2022-01-24] MEDS: METHADONE 5 MG TABLET PO SCH ×2 (03:49→22:04)
[2022-01-24 05:21] LABS: CALCIUM, IONIZED 1.16 mmol/L (1.15-1.33); VBG PH 7.327 (7.31-7.41)
[2022-01-24 05:27] LABS: BASOPHILS % (AUTO) 0.1 %; EOSINOPHILS % (AUTO) 0.3 %; HCT - HEMATOCRIT 35.7 % (37.0-47.0); LYMPHOCYTES # (AUTO) 2.1 10^3/uL (1.5-3.5); LYMPHOCYTES % (AUTO) 19.4 %; MEAN CORPUSCULAR HEMOGLOBIN 31.2 pg (27.0-31.0); MEAN CORPUSCULAR HGB CONC 33.6 g/dL (32.0-36.0); MEAN CORPUSCULAR VOLUME 92.7 fL (81.0-99.0); MEAN PLATELET VOLUME 13.7 fL (7.9-10.8); MONOCYTES # (AUTO) 1.2 10^3/uL (0.0-1.0); MONOCYTES % (AUTO) 10.7 %; NEUTROPHILS # (AUTO) 7.5 10^3/uL (1.5-6.6); PLT - PLATELET COUNT 152 10^3/uL (130-450); RED BLOOD COUNT 3.85 10^6/uL (4.20-5.40); WHITE BLOOD COUNT 10.9 x10^3/uL (4.8-10.8)
[2022-01-24 05:33] LABS: ALBUMIN 3.6 g/dL (3.2-5.5); BILIRUBIN,DIRECT 0.5 mg/dL (0.1-0.5); BILIRUBIN,TOTAL 1.4 mg/dL (0.2-1.0); CALCIUM 9.4 mg/dL (8.5-10.3); CREATININE 1.4 mg/dL (0.4-1.0); MAGNESIUM 1.6 mg/dL (1.7-2.8); PHOSPHORUS 3.5 mg/dL (2.5-4.6); POTASSIUM 5.1 mmol/L (3.5-5.0)
[2022-01-24] MEDS: SODIUM CHLORIDE 0.9% 1,000 ML IV SCH ×2 (06:52→16:33)
[2022-01-24] MEDS ORDERED: MAGNESIUM SULFATE 2 GM in SODIUM CHLORIDE 0.9% 50 ML IV ONE (07:53)
[2022-01-24] MEDS ORDERED: MAGNESIUM OXIDE 400 MG TABLET PO ONE (08:00)
[2022-01-24] MEDS: APIXABAN 2.5 MG TABLET PO SCH ×2 (08:16→21:26)
[2022-01-24] MEDS: SODIUM BICARBONATE 650 MG TABLET PO SCH ×2 (08:16→21:27)
[2022-01-24] MEDS: MAGNESIUM OXIDE 400 MG TABLET PO SCH ×3 (08:16→17:43)
[2022-01-24] MEDS: TAMSULOSIN 0.4 MG CAPSULE PO SCH (08:16)
[2022-01-24] MEDS: BUTALB/ACETAM/CAFF 50/325/40MG TABLET PO PRN ×2 (08:19→18:42)
[2022-01-24] MEDS: PROCHLORPERAZINE 10 MG/2 ML VIAL IVP PRN (08:37)
[2022-01-24] MEDS ORDERED: MAGNESIUM SULFATE 2 GRAM 2 GM/50 ML BAG IV ONE (09:00)
[2022-01-24] MEDS ORDERED: ISOSORBIDE MONONITRATE ER 30 MG TABLET PO SCH (09:00)
[2022-01-24] MEDS: hydrALAZINE INJ 20 MG/ML VIAL IVP PRN (09:29)
[2022-01-24] MEDS ORDERED: METHADONE 5 MG TABLET PO ONE (10:00)
--- NOTE | 2022-01-24 10:11 | PHARMACY PROGRESS NOTE ---
- Best Possible Medication History Admit Date and Time: 01/23/22 1242 Processed by: Nursing Medication History completed: Yes Patient Interview: Completed Secondary Source(s): Pharmacy records, Insurance records As the person ultimately responsible for medication therapy, providers are able to order a medication from an existing home medication list in [facility] via the "Reconcile Routine" prior to Confirmation of that medication by ground crewman aircraft support. Such practice is discouraged except when the physician, in their clinical judgment, deems that a medical need exists for a medication without regard to previous use.
--- NOTE | 2022-01-24 10:48 | PROVIDER PROGRESS NOTE ---
Progress Note HPI:This is a pleasant 81-year-old female with a past medical history significant for diastolic dysfunction grade 2, CKD-3, atherosclerosis of the aorta, cardiomegaly, chronic atrial fibrillation on Eliquis, hypertension, hyperlipidemia, who follows Dr. Chisholm as her primary roller setter who presents to [facility] emergency department with several day history of fatigue, orthopnea, dyspnea and lightheadedness. Patient also states that she has intermittent palpitations for which patient was seen by cardiology about a week ago with instructions to resume her metoprolol 100 mg and to hold it down to 50 mg if her heart rate was less than 70 bpm. She was seen approximately 10 days ago in the ER feeling with palpitations and her metoprolol was increased from 50 to 75 mg. Her EKG at that time showed normal sinus rhythm and her labs were essentially normal. On this visitation patient was found to have a sodium of 122 with a potassium of 6.0 and a repeat of 6.4 along with creatinine of 1.9 for which her baseline creatinine ranges between 1.0-1.5. In addition her BNP was elevated at thousand 342, AST of 54, bicarb of 23 with chloride of 88, BUN of 27, glucose of 117. TSH elevated at 7.30, CXR showed trace right-sided pleural effusion and EKG showed baseline LBBB. Patient denied chest pain however felt a chest comfort with associated orthopnea and dyspnea that she relates as her symptomatology. Her respiratory rate was 18-30 breaths/min, urine output was decreased, 96% O2 saturation on room air, and her systolic blood pressures ranged from 120s to 130s with heart rate controlled at 60s to 80s. Patient denied fevers, nausea, emesis, visual disturbances, GI/ symptoms, flank pain, maculopapular rashes or joint tenderness. Patient is not on diuretic and is on methadone and Lyrica along with Norpace and metoprolol and atorvastatin and takes Imitrex as well as allopurinol. Hospitalist service was requested for further evaluation and management treatment. On today's examination patient appeared to be with improved weakness, complaining of headaches however given Fioricet along with her Imitrex which has improved her headaches without visual disturbances, nausea, chest pain shortness of breath, fevers, GI or symptoms. Was found to have urinary retention up to 455 cc on retroperitoneal ultrasound with no hydronephrosis, stones however urine sodium was less than 12 to indicate prerenal azotemia. Patient now has a Iyer catheter which she has been draining effectively and up to 2.2 L but with a positive net balance. Her renal function has improved to 1.4 creatinine, potassium 5.1 and sodium now up to 125 with NS running at 100 cc an hour and the addition of sodium bicarb added to her regimen. Her leukocytosis essentially resolved, correcting magnesium, renal work-up Abnormalities in her uric acid, CK, free T4 with elevated TCH, normal cortisol and BUN/creatinine ratio with urine protein. Serum and urine osmolality pending. Was in RVR A. fib in the 120s and was given 1 dose of IV Lopressor at 5 mg per RN. 2 sets of troponins were unremarkable and her liver enzymes were elevated without abdominal pain. O/E: VSS. Patient is cooperative, pleasant, ill-appearing, in no acute respiratory distress. HEENT: PERRLA/EOMI BL. MMM. NCAT Neck: No JVD, thyromegaly, trachea midline, no LAD and bilaterally CV/lungs: Irregularly irregular, tachycardia, S1-S2 within normal limits, no gallops, clicks or rubs. CTA BL Abdomen: Soft, nontender, nondistended, plus bowel sounds all quadrants, no HSM /rectal: Iyer catheter in place with yellow urine. Extremities/skin: Bilateral lower extremity varicosities with trace edema/bipedal. 2+ pulses dorsalis pedis. Neuro: Grossly intact. Labs Reviewed Imaging studies: Reviewed Assessment/plan: (1) Electrolyte disturbance( Hyponatremia, hyperkalemia, hypomagnesemia) Conclusion/Plan: Patient's sodium was at 122 on admission for which prior sodium level was 130 on 01/13 and has been as low as 133 in the years of 2015 in 2018. Urine sodium of less than 12 and postobstructive uropathy with urinary retention appears to have a mixed etiology for her ELBERT. Had been on hydrochlorothiazide but had discontinued approximately 1 week prior to admission. States that she drinks about 1.5 L in a 24. Checking her serum and urine osmolality is pending. Allergy of hyper kalemia other than her ELBERT and underlying arrhythmia with diastolic dysfunction without patient being on KCl supplementation or Aldactone or even diuretics for that matter. Potassium has been corrected with Kayexalate with improvements to her potassium and no evidence of hyperacute T waves on EKG. Patient receiving magnesium sulfate with electrolyte repletion protocol for hypomagnesemia. She is also hypochloremic as well and will calculate sodium correction no more than 0.5 mEq/L/h to avoid ODS. BMP q6 hr. (2) Acute kidney injury superimposed on CKD-3 Conclusion/Plan: Patient with a creatinine of 1.9 upon admission with baseline ranging between 1.0 and 1.5 with a history of chronic kidney disease stage III. Patient has underlying hypertension. Unclear if patient had a hypoperfusion in the setting of taking high doses of Lopressor and Norpace and has been off hydrochlorothiazide for approximately more than a week which are the most common offending agents at this time to be identified. Renal work-up was initiated and retroperitoneal ultrasound showed urinary retention without hydronephrosis, stones or other pathology. We will place a Iyer catheter for monitoring of strict I's and O's. BUN and creatinine ratio and urine protein does not appear to be abnormal. Uric acid, cortisol levels were unremarkable. TSH was elevated but free T4 was normal. Serum and urine osmolality to follow. It appears that patient may have a mixed etiology of prerenal azotemia as urine sodium was less than 12 and with urinary retention now on a Iyer catheter with improved renal function. Patient to receive IV fluids for sodium correction, to avoid fluid overload given her diastolic dysfunction CHF, avoid nephrotoxic agents, correct underlying electrolyte disturbances. (3) RVR atrial fibrillation/atypical flutter Conclusion/Plan: Patient was seen by Dr. Chisholm nurse practitioner on for her atrial fibrillation and atypical atrial flutter for which patient was scheduled for cardioversion at [facility] in [place] and was instructed on taking her Eliquis and increasing her Lopressor 200 mg p.o. twice daily and never his heart rate less than 70 to go back on metoprolol 50 mg twice daily due to her conversion to sinus rhythm. She had also been on Norpace during this time. Patient's EKG shows this rhythm at 66 bpm with atrial premature complexes and couplets with a short UT interval and a left bundle branch block. Her troponin was essentially unremarkable. Would continue Eliquis at a renal adjusted dose given her age and her weight. Would also defer beta-blockade as well as Norpace given her current heart rate on telemetry showing slow rate atrial fibrillation in the 40s to 50s. Consider current medical management with IV fluids and correction of underlying electrolytes namely hyperkalemia and hyponatremia her magnesium level appears to be normal. We will obtain an echocardiogram to evaluate for structural or valvular heart disease. She does have a history of hypertrophic obstructive cardiomyopathy. Consider consult [facility] cardiology service at [phone]. Patient was found to have RVR atrial fibrillation today in the 120s and will place back on Lopressor and Norpace with adjustments to dosage. She is receiving IV Lopressor 5 mg every 4 as needed with parameters. She is not a candidate for amiodarone given her transaminitis. Patient remains on Eliquis which was titrated back to her usual dose of 5 mg p.o. twice daily now that her renal function has improved. (4) Transaminitis/congestive hepatopathy Her AST elevated to 144 (54) and her ALT elevated to 116 (56) likely as a result of her RVR A. fib/atypical atrial flutter. Will control rates to minimize further transaminitis. Patient denies abdominal pain, pruritus although T bilirubin elevated at 2.1 now, may consider abdominal ultrasound if worsening. Patient is on a atorvastatin however will not discontinue as she is still below 3 times upper normal limit of LFTs. Avoid hepatotoxic agents, she is on a statin currently. Not a candidate for amiodarone at this time. Viral serologies to follow. (5) Acute on chronic diastolic (congestive) heart failure Conclusion/Plan: She presented with SOB, weakness, fatigue w/ some orthopnea per history. Patient's primary roller setter is Dr. Chisholm and was previously instructed to take Lopressor 100 mg p.o. twice daily and closely monitor her heart rate but had reduced this down to 50 mg and was again instructed to increase to 75 mg recently due to patient experiencing weakness and fatigue for which she was seen 10 days ago days ago at the emergency department at the time with an EKG unremarkable and labs unremarkable. Her BNP is elevated at thousand 342 and her prior 2D echo in 03/28 2019 shows a grade 2 diastolic dysfunction EF of 70-75%. Patient will be on IV fluids and will attempt to avoid fluid overload given her diastolic dysfunction however in the setting of decreased urinary output and hyponatremia will need to monitor carefully. Daily weights, strict I's and O's. Holding off of diuretics for now given patient's hyponatremia and ELBERT. She may be possibly developing acute cardiorenal syndrome given underlying history of suspected obstructive hypertrophic cardiomyopathy. (6) Leukocytosis---Resolved Conclusion/Plan: Unclear of source of infection although she has abnormal UA and may have a UTI given her urinary retention. She lacks fever, flank pain or or other s/s of infection. UCx pending. (7) General weakness Conclusion/Plan: Likely as it pertains to her electrolyte disturbance. Correct underlying medical conditions. PT/OT to follow. (8) Malignant hypertension---Improved Conclusion/Plan: SBP in ED were in 130's however when she landed in ICU they soared w/ SBP 170's and DBP>[address]. [address] on IV hydralazine/lopressor prn w/ parameters and hold existing home lopressor and norpace give her slow rate afib w/ atypical aflutter. (9) Acute urinary retention Conclusion/Plan: Renal US shows 450 cc of retained urine. FC placed w/ up to 2.2 L urine now, continue to monitor UO while on IVF's. She has an abnormal UA but w/o evidence of hydro, stones or s/s of UTI. Will start flomax to improve urinary retention at level of urethra. (10) Abnormal finding on urinalysis Conclusion/Plan: Asymptomatic bacteriuria w/o s/s of infection but does have a leukocytosis and no fever. Will await Ucx results. Defer off abx for now. Total critical care time: 40 minutes.
[2022-01-24] MEDS ORDERED: METOPROLOL TARTRATE 50 MG TABLET PO SCH (11:00)
[2022-01-24] MEDS: SENNA 8.6 MG TABLET PO SCH (11:08)
[2022-01-24] MEDS: polyethylene glycoL 3350 17 GM PACKET PO SCH (11:16)
[2022-01-24] MEDS: DOCUSATE SODIUM 250 MG CAPSULE PO SCH (11:21)
[2022-01-24] MEDS ORDERED: DISOPYRAMIDE PHOSPHATE 100 MG PO SCH ×2 (12:00→21:00)
[2022-01-24] MEDS: PANTOPRAZOLE 40 MG TABLET PO SCH (12:15)
[2022-01-24 13:09] LABS: OSMOLALITY 271 mOsmol/kg (280-301); OSMOLALITY URINE 350 mOsmol/kg (.)
[2022-01-24] MEDS ORDERED: DIGOXIN 500 MCG/2 ML AMP IVP ONE (14:58)
[2022-01-24 19:35] LABS: CALCIUM 8.6 mg/dL (8.5-10.3); CREATININE 1.2 mg/dL (0.4-1.0); POTASSIUM 4.7 mmol/L (3.5-5.0)
[2022-01-24] MEDS ORDERED: LIDOCAINE-MPF 2% 5 ML VIAL ONE (20:52)
[2022-01-24] MEDS ORDERED: PROPOFOL 200 MG/20 ML VIAL IVP ONE (20:52)
[2022-01-24] MEDS: DISOPYRAMIDE PHOSPHATE 100 MG PO SCH (20:58)
[2022-01-24] MEDS: METOPROLOL TARTRATE 50 MG TABLET PO SCH (20:58)
[2022-01-24] MEDS: PREGABALIN 25 MG CAPSULE PO SCH (21:26)
[2022-01-24] MEDS: ATORVASTATIN 40 MG TABLET PO SCH (21:27)
[2022-01-24] MEDS ORDERED: DIGOXIN 500 MCG/2 ML AMP IVP SCH (21:30)
[2022-01-25] MEDS: SODIUM CHLORIDE FLUSH 0.9% 10 ML SYRINGE IVP SCH ×3 (01:34→16:47)
[2022-01-25] MEDS: SODIUM CHLORIDE 0.9% 1,000 ML IV SCH (01:34)
[2022-01-25 05:25] LABS: ALBUMIN 3.5 g/dL (3.2-5.5); CALCIUM 8.6 mg/dL (8.5-10.3); CREATININE 1.2 mg/dL (0.4-1.0); MAGNESIUM 1.6 mg/dL (1.7-2.8); PHOSPHORUS 2.6 mg/dL (2.5-4.6); POTASSIUM 4.4 mmol/L (3.5-5.0)
[2022-01-25] MEDS ORDERED: FUROSEMIDE 40 MG/4 ML VIAL IVP STA (06:23)
[2022-01-25] MEDS ORDERED: ASPIRIN CHEW 81 MG TABLET PO STA (06:24)
--- NOTE | 2022-01-25 06:47 | PROVIDER PROGRESS NOTE ---
Subjective - Prog Note Date Prog Note Date: 01/24/22 Prog Note Time: 21:00 - Subjective Pt reports feeling: Improved Subjective: 81-year-old with A. fib/a flutter with a typical pattern having symptoms of shortness of breath, mental status changes however her systolic blood pressures stable with MAP in the 70s. Patient consented for DC cardioversion under conscious sedation and anesthesia consulted. Patient had not received her usual dose of methadone the night prior and felt like her skin was crawling per her statement. Patient also states that she has had 2 prior cardioversions in the past. Patient is currently on Eliquis. Patient has developed congestive hepatopathy with a current EF of 41% and a moderate increase in her left atrial volume index with RVSP of 50 mmHg per echo on 01/23. Troponins have been unremarkable. Patient is mildly tachypneic, not hypoxemic, afebrile. Anesthesia consulted and informed consent obtained for DC cardioversion under conscious sedation. Current Medications - Current Medications Current Medications: Active Medications Generic Name Dose Route Start Last Admin Trade Name Freq PRN Reason Stop Dose Admin Acetaminophen 650 mg 01/24/22 02:28 01/24/22 02:39 Acetaminophen 325 Mg Tablet PO 650 mg Q4HR PRN Administration Pain or Fever > 38C (100.4F) Acetaminophen/Butalbital/Caffeine 1 tab 01/24/22 08:06 01/24/22 18:42 Butalb/Acetam/Caff 50/325/40mg Tablet PO 1 tab Q4HR PRN Administration HEADACHE Apixaban 5 mg 01/24/22 09:00 01/24/22 21:26 Apixaban 2.5 Mg Tablet PO 5 mg BID CARMINE Administration Atorvastatin Calcium 80 mg 01/23/22 21:00 01/24/22 21:27 Atorvastatin 40 Mg Tablet PO 80 mg QPM CARMINE Administration Docusate Sodium 250 - 500 mg 01/24/22 11:00 01/24/22 11:21 Docusate Sodium 250 Mg Capsule PO 250 mg DAILY CARMINE Administration Hydralazine HCl 10 mg 01/23/22 16:38 01/24/22 09:29 Hydralazine Inj 20 Mg/Ml Vial IVP 10 mg Q4H PRN Administration sbp>170 or DBP>100 Isosorbide Mononitrate 30 mg 01/24/22 09:00 01/24/22 08:16 Isosorbide Mononitrate Er 30 Mg Tablet PO 30 mg DAILY CARMINE Administration Magnesium Oxide 400 mg 01/24/22 08:00 01/24/22 17:43 Magnesium Oxide 400 Mg Tablet PO 400 mg TIDWM CARMINE Administration Methadone HCl 5 mg 01/24/22 04:00 01/24/22 03:49 Methadone 5 Mg Tablet PO 5 mg DAILY CARMINE Administration Methadone HCl 10 mg 01/24/22 21:00 01/24/22 22:04 Methadone 5 Mg Tablet PO 10 mg QPM CARMINE Administration Metoprolol Tartrate 10 mg 01/24/22 12:03 01/24/22 18:44 Metoprolol 5 Mg/5 Ml Vial IVP 10 mg Q2H PRN Administration HR>120 or SBP>180 Metoprolol Tartrate 100 mg 01/24/22 21:00 01/24/22 20:58 Metoprolol Tartrate 50 Mg Tablet PO Not Given BID CARMINE Pantoprazole Sodium 40 mg 01/24/22 13:00 01/24/22 12:15 Pantoprazole 40 Mg Tablet PO 40 mg DAILY CARMINE Administration Disopyramide 2 each 01/24/22 21:00 01/24/22 20:58 Phosphate [Norpace] PO Not Given 100 Mg Capsule BID CARMINE Polyethylene Glycol 17 gm 01/24/22 11:00 01/24/22 11:16 Polyethylene Glycol 3350 17 Gm Packet PO 17 gm DAILY CARMINE Administration Pregabalin 75 mg 01/23/22 21:00 01/24/22 21:26 Pregabalin 25 Mg Capsule PO 75 mg HS CARMINE Administration Prochlorperazine Edisylate 10 mg 01/23/22 12:42 01/24/22 08:37 Prochlorperazine 10 Mg/2 Ml Vial IVP 10 mg Q6HR PRN Administration Nausea / Vomiting Senna 8.6 - 17.2 mg 01/24/22 11:00 01/24/22 11:08 Senna 8.6 Mg Tablet PO 8.6 mg DAILY CARMINE Administration Sodium Bicarbonate 650 mg 01/24/22 09:00 01/24/22 21:27 Sodium Bicarbonate 650 Mg Tablet PO 650 mg BID CARMINE Administration Sodium Chloride 10 ml 01/23/22 17:00 01/25/22 01:34 Sodium Chloride Flush 0.9% 10 Ml Syringe IVP Not Given 0100,0900,1700 [facility] Sodium Chloride 10 ml 01/23/22 12:42 Sodium Chloride Flush 0.9% 10 Ml Syringe IVP PRN PRN NEEDED PER PROVIDER ORDERS Sodium Polystyrene Sulfonate 15 gm 01/23/22 13:10 Sodium Polystyrene Sulfonate 15 Gm/60 Ml Bottle PO Q4H PRN K>6.0 Sumatriptan Succinate 100 mg 01/23/22 14:00 01/25/22 00:00 Sumatriptan 25 Mg Tablet PO 100 mg DAILY PRN Administration HEADACHE Tamsulosin HCl 0.4 mg 01/23/22 16:28 01/24/22 08:16 Tamsulosin 0.4 Mg Capsule PO 0.4 mg DAILY CARMINE Administration Temazepam 15 mg 01/23/22 12:42 Temazepam 15 Mg Capsule PO QPM PRN Insomnia Disopyramide Phosphate [Norpace Cr] 200 mg PO BID 07/16/13 Metoprolol Tartrate 100 mg PO BID 07/16/13 Pregabalin [Lyrica] 100 mg PO HS 07/16/13 Apixaban [Eliquis] 5 mg ORAL BID 06/11/21 Atorvastatin Calcium [Lipitor] 80 mg PO HS 06/11/21 Methadone [Methadone Hcl] 5 mg PO DAILY 06/11/21 Sumatriptan Succinate [Imitrex] 100 mg PO DAILY PRN 06/11/21 allopurinoL [Zyloprim] 100 mg PO DAILY 06/11/21 Methadone [Methadone Hcl] 10 mg PO QPM 01/24/22 Objective - Vital Signs/Intake & Output Reviewed Vital Signs: Yes Vital Signs: Vital Signs x48h Pulse Resp BP Pulse Ox 01/25/22 06:00 57 L 32 H 138/104 H 96 01/25/22 05:00 56 L 15 134/97 H 97 01/25/22 04:00 54 L 15 112/99 H 97 01/25/22 03:00 54 L 19 98/50 L 97 01/25/22 02:00 54 L 15 126/83 H 97 01/25/22 01:00 55 L 16 98/71 97 01/25/22 00:00 56 L 18 107/76 97 01/24/22 23:00 56 L 22 108/77 98 Intake & Output: Intake & Output 01/22/22 01/23/22 01/24/22 01/25/22 23:59 23:59 23:59 23:59 Intake Total 2438.333 4186.667 901.667 Output Total 1292 9022 123 Balance 8695.481 1188.667 778.667 - Objective General Appearance: positive: Alert, Mild distress, Anxious Eyes Bilateral: positive: Normal inspection, PERRL, EOMI ENT: positive: ENT inspection nml, Pharynx nml Neck: positive: Nml inspection, Thyroid nml, No JVD, Trachea midline. negative: Thyromegaly, Carotid bruit Respiratory: positive: Chest non-tender, No respiratory distress, Breath sounds nml Cardiovascular: positive: Irregularly irregular, Tachycardia. negative: No gallop, PMI displaced laterally, JVD present, Gallop/S4 Abdomen: positive: Non-tender, No organomegaly, Nml bowel sounds, No distention. negative: Tenderness Skin: positive: Color nml, No rash, Dry, Pallor Extremities: positive: Non-tender, Full ROM, Pedal edema Neurologic/Psychiatric: positive: CN's nml (2-12), Sensation nml, Mood/affect nml, Disoriented to time - Lab Results Fish Bones: 01/24/22 04:11 01/25/22 04:21 Other Labs: Lab Results x24hrs 01/25/22 01/25/22 01/24/22 Range/Units 04:21 04:21 19:20 Sodium 120 L* 123 L (135-145) mmol/L Potassium 4.4 4.7 (3.5-5.0) mmol/L Chloride 91 L 92 L (101-111) mmol/L Carbon Dioxide 21 23 (21-32) mmol/L Anion Gap 8.0 8.0 (6-13) BUN 25 H 21 H (6-20) mg/dL Creatinine 1.2 H 1.2 H (0.4-1.0) mg/dL Estimated GFR (MDRD) 43 L 43 L (>89) Glucose 127 H 214 H (70-100) mg/dL Serum Osmolality (280-301) mOsmol/kg Calcium 8.6 8.6 (8.5-10.3) mg/dL Phosphorus 2.6 (2.5-4.6) mg/dL Magnesium 1.6 L (1.7-2.8) mg/dL B-Natriuretic Peptide 1082 H (5-100) pg/mL Albumin 3.5 (3.2-5.5) g/dL Urine Osmolality (.) mOsmol/kg 01/24/22 01/23/22 Range/Units 12:37 09:57 Sodium 121 L (135-145) mmol/L Potassium (3.5-5.0) mmol/L Chloride (101-111) mmol/L Carbon Dioxide (21-32) mmol/L Anion Gap (6-13) BUN (6-20) mg/dL Creatinine (0.4-1.0) mg/dL Estimated GFR (MDRD) (>89) Glucose (70-100) mg/dL Serum Osmolality 271 L (280-301) mOsmol/kg Calcium (8.5-10.3) mg/dL Phosphorus (2.5-4.6) mg/dL Magnesium (1.7-2.8) mg/dL B-Natriuretic Peptide (5-100) pg/mL Albumin (3.2-5.5) g/dL Urine Osmolality 350 (.) mOsmol/kg Abnormal Lab Results 01/23/22 01/23/22 01/23/22 09:57 09:57 09:57 WBC 12.2 x10^3/uL H x10^3/uL (4.8-10.8) RBC 4.11 10^6/uL L 10^6/uL (4.20-5.40) Hct MCH MCHC 31.7 g/dL L g/dL (32.0-36.0) RDW 15.2 % H % (12.0-15.0) MPV 12.6 fL H fL (7.9-10.8) Neut # (Auto) 9.0 10^3/uL H 10^3/uL (1.5-6.6) [place] # (Auto) Sodium 122 mmol/L L mmol/L (135-145) Potassium 6.0 mmol/L H* mmol/L (3.5-5.0) Chloride 88 mmol/L L mmol/L (101-111) BUN 27 mg/dL H mg/dL (6-20) Creatinine 1.9 mg/dL H mg/dL (0.4-1.0) Estimated GFR (MDRD) 25 L (>89) Glucose 117 mg/dL H mg/dL (70-100) Serum Osmolality Magnesium Total Bilirubin AST 54 IU/L H IU/L (10-42) ALT B-Natriuretic Peptide 1342 pg/mL H pg/mL (5-100) Total Protein Lipase 20 U/L L U/L (22-51) TSH Ur Leukocyte Esterase Urine Bacteria 01/23/22 01/23/22 01/23/22 09:57 09:57 11:15 WBC RBC Hct MCH MCHC RDW MPV Neut # (Auto) [place] # (Auto) Sodium Potassium 6.4 mmol/L H* mmol/L (3.5-5.0) Chloride BUN Creatinine Estimated GFR (MDRD) Glucose Serum Osmolality 271 mOsmol/kg L mOsmol/kg (280-301) Magnesium Total Bilirubin AST ALT B-Natriuretic Peptide Total Protein Lipase TSH 7.37 uIU/mL H uIU/mL (0.34-5.60) Ur Leukocyte Esterase Urine Bacteria 01/23/22 01/23/22 01/23/22 12:45 13:25 19:09 WBC RBC Hct MCH MCHC RDW MPV Neut # (Auto) [place] # (Auto) Sodium 123 mmol/L L mmol/L 121 mmol/L L mmol/L (135-145) (135-145) Potassium 5.4 mmol/L H mmol/L (3.5-5.0) Chloride 88 mmol/L L mmol/L (101-111) BUN 26 mg/dL H mg/dL (6-20) Creatinine 1.7 mg/dL H mg/dL (0.4-1.0) Estimated GFR (MDRD) 29 L (>89) Glucose 116 mg/dL H mg/dL (70-100) Serum Osmolality Magnesium Total Bilirubin AST ALT B-Natriuretic Peptide Total Protein Lipase TSH Ur Leukocyte Esterase MODERATE H (NEGATIVE) Urine Bacteria Moderate /HPF H /HPF (None Seen) 01/23/22 01/24/22 01/24/22 23:35 04:11 04:11 WBC RBC Hct MCH MCHC RDW MPV Neut # (Auto) [place] # (Auto) Sodium 120 mmol/L L* mmol/L 125 mmol/L L mmol/L 124 mmol/L L mmol/L (135-145) (135-145) (135-145) Potassium 5.1 mmol/L H mmol/L (3.5-5.0) Chloride 90 mmol/L L mmol/L 91 mmol/L L mmol/L (101-111) (101-111) BUN 25 mg/dL H mg/dL 24 mg/dL H mg/dL (6-20) (6-20) Creatinine 1.4 mg/dL H mg/dL 1.4 mg/dL H mg/dL (0.4-1.0) (0.4-1.0) Estimated GFR (MDRD) 36 L 36 L (>89) (>89) Glucose Serum Osmolality Magnesium 1.6 mg/dL L mg/dL (1.7-2.8) Total Bilirubin 1.4 mg/dL H mg/dL (0.2-1.0) AST 144 IU/L H IU/L (10-42) ALT 116 IU/L H IU/L (10-60) B-Natriuretic Peptide Total Protein 6.0 g/dL L g/dL (6.7-8.2) Lipase TSH Ur Leukocyte Esterase Urine Bacteria 01/24/22 01/24/22 01/24/22 04:11 12:37 19:20 WBC 10.9 x10^3/uL H x10^3/uL (4.8-10.8) RBC 3.85 10^6/uL L 10^6/uL (4.20-5.40) Hct 35.7 % L % (37.0-47.0) MCH 31.2 pg H pg (27.0-31.0) MCHC RDW MPV 13.7 fL H fL (7.9-10.8) Neut # (Auto) 7.5 10^3/uL H 10^3/uL (1.5-6.6) [place] # (Auto) 1.2 10^3/uL H 10^3/uL (0.0-1.0) Sodium 121 mmol/L L mmol/L 123 mmol/L L mmol/L (135-145) (135-145) Potassium Chloride 92 mmol/L L mmol/L (101-111) BUN 21 mg/dL H mg/dL (6-20) Creatinine 1.2 mg/dL H mg/dL (0.4-1.0) Estimated GFR (MDRD) 43 L (>89) Glucose 214 mg/dL H mg/dL (70-100) Serum Osmolality Magnesium Total Bilirubin AST ALT B-Natriuretic Peptide Total Protein Lipase TSH Ur Leukocyte Esterase Urine Bacteria 01/25/22 01/25/22 04:21 04:21 WBC RBC Hct MCH MCHC RDW MPV Neut # (Auto) [place] # (Auto) Sodium 120 mmol/L L* mmol/L (135-145) Potassium Chloride 91 mmol/L L mmol/L (101-111) BUN 25 mg/dL H mg/dL (6-20) Creatinine 1.2 mg/dL H mg/dL (0.4-1.0) Estimated GFR (MDRD) 43 L (>89) Glucose 127 mg/dL H mg/dL (70-100) Serum Osmolality Magnesium 1.6 mg/dL L mg/dL (1.7-2.8) Total Bilirubin AST ALT B-Natriuretic Peptide 1082 pg/mL H pg/mL (5-100) Total Protein Lipase TSH Ur Leukocyte Esterase Urine Bacteria - Diagnostic Imaging Diagnostic Imaging Results: positive: Final report reviewed (Serial EKGs reviewed.) ABX Reporting Has patient been on IV antibiotics over the past 48 hours?: No Assessment/Plan - Problem List (6) Leukocytosis Qualifiers: Leukocytosis type: lymphocytosis Qualified Code(s): D72.820 - Lymphocytosis (symptomatic)
[2022-01-25 06:52] LABS: CALCIUM, IONIZED 1.09 mmol/L (1.15-1.33); VBG PH 7.387 (7.31-7.41)
--- NOTE | 2022-01-25 06:55 | PROCEDURE REPORT ---
Hospitalist Procedure Note - Procedure Note Procedure Note: Procedure note: 01/24/2022. 81-year-old with A. fib/a flutter with a typical pattern having symptoms of shortness of breath, mental status changes however her systolic blood pressures stable with MAP in the 70s. Patient consented for DC cardioversion under cons cious sedation and anesthesia consulted. Patient had not received her usual dose of methadone the night prior and felt like her skin was crawling per her statement. Patient also states that she has had 2 prior cardioversions in the past. Patient is currently on Eliquis. Patient has developed congestive hepatopathy with a current EF of 41% and a moderate increase in her left atrial volume index with RVSP of 50 mmHg per echo on 01/23. Troponins have been unremarkable. Patient is mildly tachypneic, not hypoxemic, afebrile. Anesthesia consulted and informed consent obtained for DC cardioversion under conscious sedation. O/E: MAP 70's, tachyarrhythmia on telemetry. Afebrile. mildly tachypneic, Irregularly irregular on CV lungs with decreased breath sounds bibasilarly Abdomen is soft and benign extremities/skin show mild pedal edema, no cyanosis Neuro mildly confused Procedure: Conscious sedation under anesthesia with direct-current cardioversion at 20:08 A baseline EKG prior to DC cardioversion was obtained and showed sinus tachycardia with LBBB and possible AV block. Patient received conscious sedation with propofol and patient had defibrillator pads applied and was on synchronous mode and charged to 120 J for which charge was applied and patient was shocked into sinus bradycardia in the 40s however her maps dropped to 60s for which she received 250 cc bolus with improvement. She remained somnolent post DC cardioversion. Pressor as well as Norpace were being held due to concerns of ongoing sinus bradycardia with potential blocks. However no obvious AV blocks were seen on serial EKGs.
[2022-01-25 07:10] LABS: ALBUMIN 3.7 g/dL (3.2-5.5); BILIRUBIN,DIRECT 0.3 mg/dL (0.1-0.5); TOTAL PROTEIN 6.1 g/dL (6.7-8.2)
[2022-01-25] MEDS: MAGNESIUM OXIDE 400 MG TABLET PO SCH ×3 (08:05→16:46)
[2022-01-25] MEDS: APIXABAN 2.5 MG TABLET PO SCH ×2 (08:06→20:32)
[2022-01-25] MEDS: DOCUSATE SODIUM 250 MG CAPSULE PO SCH (08:06)
[2022-01-25] MEDS: METHADONE 5 MG TABLET PO SCH ×2 (08:07→20:31)
[2022-01-25] MEDS: polyethylene glycoL 3350 17 GM PACKET PO SCH (08:07)
[2022-01-25] MEDS: SENNA 8.6 MG TABLET PO SCH (08:08)
[2022-01-25] MEDS: SODIUM BICARBONATE 650 MG TABLET PO SCH ×3 (08:08→21:14)
[2022-01-25] MEDS: TAMSULOSIN 0.4 MG CAPSULE PO SCH ×2 (08:08→08:09)
[2022-01-25] MEDS ORDERED: LORazepam 2 MG/ML VIAL IVP ONE (08:20)
--- NOTE | 2022-01-25 08:48 | XRAY Report ---
PROCEDURE: Chest 1 View X-Ray INDICATIONS: Dyspnea. Chest pain. TECHNIQUE: One view of the chest was acquired. COMPARISON: 01/23/2022, 01/13/2022 and 09/13/2021 FINDINGS: Surgical changes and devices: None. Overlying external devices. Lungs and pleura: There is mild prominence of the interstitium. Linear densities at the lung bases as well as the right midlung likely representing atelectasis. Likely small right-sided pleural effusion with subtle right basilar opacity. No pneumothorax. Mediastinum: Mediastinal contours appear normal. Heart size is mildly enlarged. Vascular calcificati ons noted throughout the aorta. Bones and chest wall: No suspicious bony lesions. Overlying soft tissues appear unremarkable. IMPRESSION: Findings suggestive of fluid overload/CHF with interstitial edema and likely small right-sided pleura l effusion. Subtle opacity at the right lung base may represent pulmonary edema versus developing inf ection in the correct clinical setting. Reviewed by: Naga Harris DO on 01/25/2022 7:47 AM [facility] Approved by: Naga Harris DO on 01/25/2022 7:47 AM TRI Station ID: [id number]
[2022-01-25] MEDS: METOPROLOL TARTRATE 50 MG TABLET PO SCH (08:58)
[2022-01-25] MEDS ORDERED: NITROGLYCERIN 50 MG/250 ML 50 MG/250 ML BOTTLE IV SCH (09:00)
[2022-01-25] MEDS: DISOPYRAMIDE PHOSPHATE 100 MG PO SCH (09:01)
[2022-01-25 09:04] LABS: ABG BASE EXCESS -3.2 mmol/L (-2.0-3.0); ABG HCO3 22.1 mmol/L (22.0-26.0); ABG OXYGEN SATURATION 96 % (94-98); ABG PCO2 41 mmHg (34-45); ABG PH 7.36 (7.35-7.45); ABG PO2 85 mmHg (80-100); ABG RESPIRATORY RATE 22 b/min; ABG TCO2 23.4 MMOL/L (21.0-29.0); ALLEN TEST POSITIVE
[2022-01-25] MEDS: PANTOPRAZOLE 40 MG TABLET PO SCH (09:04)
--- NOTE | 2022-01-25 10:29 | ANESTHESIA ---
Pre-Anesthesia VS, & Labs - Diagnosis a fib with AVR - Procedure cardioversion Vital Signs: Temp Pulse Resp BP Pulse Ox 36.6 C 57 L 20 153/75 H 99 01/25/22 09:00 01/25/22 09:00 01/25/22 09:00 01/25/22 09:00 01/25/22 09:00 Height: 5 ft 1.5 in Weight (kg): 79.5 kg Body Mass Index: 32.5 BMI Classification: Obese - NPO >8 hours - Is Patient ?: No - Lab Results Current Lab Results: Laboratory Tests 01/25/22 08:45: Bld Gas Analysis Time 0845, Sample Site RIGHT BRACHIAL, ABG pH 7.36, ABG pCO2 41, ABG pO2 85, ABG HCO3 22.1, ABG Total CO2 23.4, ABG O2 Saturation 96, ABG Base Excess -3.2 L, Norberto Test POSITIVE, Respiration Rate 22, O2 Delivery Device OXYMASK, O2 Liters/Min 2.00 01/25/22 06:38: VBG pH 7.387, Ionized Calcium 1.09 L 01/25/22 06:38: Total Bilirubin 1.0, Direct Bilirubin 0.3, AST 147 H, ALT 176 H, Alkaline Phosphatase 96, Total Protein 6.1 L, Albumin 3.7, Globulin 2.4 01/25/22 06:38: Troponin I High Sens 20.5 H* 01/25/22 04:21: B-Natriuretic Peptide 1082 H 01/25/22 04:21: Sodium 120 L*, Potassium 4.4, Chloride 91 L, Carbon Dioxide 21, Anion Gap 8.0, BUN 25 H, Creatinine 1.2 H, Estimated GFR (MDRD) 43 L, Glucose 127 H, Calcium 8.6, Phosphorus 2.6, Magnesium 1.6 L, Albumin 3.5 01/24/22 19:20: Sodium 123 L, Potassium 4.7, Chloride 92 L, Carbon Dioxide 23, Anion Gap 8.0, BUN 21 H, Creatinine 1.2 H, Estimated GFR (MDRD) 43 L, Glucose 214 H, Calcium 8.6 01/24/22 12:37: Sodium 121 L 01/24/22 04:11: VBG pH 7.327, Ionized Calcium 1.16 01/24/22 04:11: WBC 10.9 H, RBC 3.85 L, Hgb 12.0, Hct 35.7 L, MCV 92.7, MCH 31.2 H, MCHC 33.6, RDW 15.0, Plt Count 152, MPV 13.7 H, Neut # (Auto) 7.5 H, Lymph # (Auto) 2.1, Harrison # (Auto) 1.2 H, Eos # (Auto) 0.0, Baso # (Auto) 0.0, Absolute Nucleated RBC 0.00, Nucleated RBC % 0.0 01/24/22 04:11: Sodium 124 L 01/24/22 04:11: Sodium 125 L, Potassium 5.1 H, Chloride 91 L, Carbon Dioxide 24, Anion Gap 10.0, BUN 24 H, Creatinine 1.4 H, Estimated GFR (MDRD) 36 L, Glucose 73, Calcium 9.4, Phosphorus 3.5, Magnesium 1.6 L, Total Bilirubin 1.4 H, Direct Bilirubin 0.5, AST 144 H, ALT 116 H, Alkaline Phosphatase 83, Total Protein 6.0 L, Albumin 3.6, Globulin 2.4 01/23/22 23:35: Sodium 120 L*, Potassium 4.6, Chloride 90 L, Carbon Dioxide 23, Anion Gap 7.0, BUN 25 H, Creatinine 1.4 H, Estimated GFR (MDRD) 36 L, Glucose 76, Calcium 8.5 01/23/22 19:09: Sodium 121 L, Potassium 5.4 H, Chloride 88 L, Carbon Dioxide 23, Anion Gap 10.0, BUN 26 H, Creatinine 1.7 H, Estimated GFR (MDRD) 29 L, Glucose 116 H, Calcium 9.0 01/23/22 14:43: POC Whole Bld Glucose 96 01/23/22 12:45: Sodium 123 L 01/23/22 12:45: Free T4 1.14 01/23/22 12:45: Troponin I High Sens 9.4 01/23/22 12:45: Cortisol 49.2 01/23/22 12:45: Uric Acid 6.7, Magnesium 2.1, Total Creatine Kinase 55 01/23/22 12:36: POC Whole Bld Glucose 92 01/23/22 11:15: Potassium 6.4 H* 01/23/22 09:57: Serum Osmolality 271 L 01/23/22 09:57: TSH 7.37 H 01/23/22 09:57: B-Natriuretic Peptide 1342 H 01/23/22 09:57: Magnesium 2.0 01/23/22 09:57: Troponin I High Sens 10.8 01/23/22 09:57: Sodium 122 L, Potassium 6.0 H*, Chloride 88 L, Carbon Dioxide 23, Anion Gap 11.0, BUN 27 H, Creatinine 1.9 H, Estimated GFR (MDRD) 25 L, Glucose 117 H, Calcium 9.2, Total Bilirubin 0.9, AST 54 H, ALT 56, Alkaline Phosphatase 94, Total Protein 6.8, Albumin 4.0, Globulin 2.8, Albumin/Globulin Ratio 1.4, Lipase 20 L 01/23/22 09:57: WBC 12.2 H, RBC 4.11 L, Hgb 12.5, Hct 39.4, MCV 95.9, MCH 30.4, MCHC 31.7 L, RDW 15.2 H, Plt Count 165, MPV 12.6 H, Neut # (Auto) 9.0 H, Lymph # (Auto) 2.2, Harrison # (Auto) 0.9, Eos # (Auto) 0.1, Baso # (Auto) 0.0, Absolute Nucleated RBC 0.02, Nucleated RBC % 0.2, Manual Slide Review Indicated, WBC Morphology 2+ REACTIVE LYMPHS Fish Bones: 01/24/22 04:11 01/25/22 04:21 Home Medications and Allergies Home Medications: Ambulatory Orders Methadone [Methadone Hcl] 10 mg PO QPM 01/24/22 Active Medications Acetaminophen (Acetaminophen 325 Mg Tablet) 650 mg PO Q4HR PRN PRN Reason: Pain or Fever > 38C (100.4F) Last Admin: 01/24/22 02:39 Dose: 650 mg Acetaminophen/Butalbital/Caffeine (Butalb/Acetam/Caff 50/325/40mg Tablet) 1 tab PO Q4HR PRN PRN Reason: HEADACHE Last Admin: 01/24/22 18:42 Dose: 1 tab Apixaban (Apixaban 2.5 Mg Tablet) 5 mg PO BID [facility] Last Admin: 01/25/22 08:06 Dose: 5 mg Atorvastatin Calcium (Atorvastatin 40 Mg Tablet) 80 mg PO QPM [facility] Last Admin: 01/24/22 21:27 Dose: 80 mg Docusate Sodium (Docusate Sodium 250 Mg Capsule) 250 - 500 mg PO DAILY [facility] Last Admin: 01/25/22 08:06 Dose: 250 mg Hydralazine HCl (Hydralazine Inj 20 Mg/Ml Vial) 10 mg IVP Q4H PRN PRN Reason: sbp>170 or DBP>100 Last Admin: 01/24/22 09:29 Dose: 10 mg Nitroglycerin (Nitroglycerin) 50 mg in 250 mls @ 1.5 mls/hr IV .Q72H [facility]; Protocol Last Titration: 01/25/22 09:00 Dose: 10 mcg/min, 3 mls/hr Magnesium Oxide (Magnesium Oxide 400 Mg Tablet) 400 mg PO TIDWM [facility] Last Admin: 01/25/22 08:05 Dose: 400 mg Methadone HCl (Methadone 5 Mg Tablet) 5 mg PO DAILY [facility] Last Admin: 01/25/22 08:07 Dose: 5 mg Methadone HCl (Methadone 5 Mg Tablet) 10 mg PO QPM [facility] Last Admin: 01/24/22 22:04 Dose: 10 mg Metoprolol Tartrate (Metoprolol 5 Mg/5 Ml Vial) 10 mg IVP Q2H PRN PRN Reason: HR>120 or SBP>180 Last Admin: 01/24/22 18:44 Dose: 10 mg Metoprolol Tartrate (Metoprolol Tartrate 50 Mg Tablet) 100 mg PO BID [facility] Last Admin: 01/25/22 08:58 Dose: Not Given Pantoprazole Sodium (Pantoprazole 40 Mg Tablet) 40 mg PO DAILY [facility] Last Admin: 01/25/22 09:04 Dose: 40 mg Disopyramide Phosphate [Norpace] 100 Mg Capsule 2 each PO BID [facility] Last Admin: 01/25/22 09:01 Dose: Not Given Polyethylene Glycol (Polyethylene Glycol 3350 17 Gm Packet) 17 gm PO DAILY [facility] Last Admin: 01/25/22 08:07 Dose: 17 gm Pregabalin (Pregabalin 25 Mg Capsule) 75 mg PO HS [facility] Last Admin: 01/24/22 21:26 Dose: 75 mg Prochlorperazine Edisylate (Prochlorperazine 10 Mg/2 Ml Vial) 10 mg IVP Q6HR PRN PRN Reason: Nausea / Vomiting Last Admin: 01/24/22 08:37 Dose: 10 mg Senna (Senna 8.6 Mg Tablet) 8.6 - 17.2 mg PO DAILY [facility] Last Admin: 01/25/22 08:08 Dose: 8.6 mg Sodium Bicarbonate (Sodium Bicarbonate 650 Mg Tablet) 650 mg PO BID [facility] Last Admin: 01/25/22 08:08 Dose: 650 mg Sodium Chloride (Sodium Chloride Flush 0.9% 10 Ml Syringe) 10 ml IVP 0100,0900,1700 [facility] Last Admin: 01/25/22 08:08 Dose: 10 ml Sodium Chloride (Sodium Chloride Flush 0.9% 10 Ml Syringe) 10 ml IVP PRN PRN PRN Reason: NEEDED PER PROVIDER ORDERS Sodium Polystyrene Sulfonate (Sodium Polystyrene Sulfonate 15 Gm/60 Ml Bottle) 15 gm PO Q4H PRN PRN Reason: K>6.0 Sumatriptan Succinate (Sumatriptan 25 Mg Tablet) 100 mg PO DAILY PRN PRN Reason: HEADACHE Last Admin: 01/25/22 00:00 Dose: 100 mg Tamsulosin HCl (Tamsulosin 0.4 Mg Capsule) 0.4 mg PO DAILY [facility] Last Admin: 01/25/22 08:09 Dose: 0.4 mg Temazepam (Temazepam 15 Mg Capsule) 15 mg PO QPM PRN PRN Reason: Insomnia Disopyramide Phosphate [Norpace Cr] 200 mg PO BID 07/16/13 Metoprolol Tartrate 100 mg PO BID 07/16/13 Pregabalin [Lyrica] 100 mg PO HS 07/16/13 Apixaban [Eliquis] 5 mg ORAL BID 06/11/21 Atorvastatin Calcium [Lipitor] 80 mg PO HS 06/11/21 Methadone [Methadone Hcl] 5 mg PO DAILY 06/11/21 Sumatriptan Succinate [Imitrex] 100 mg PO DAILY PRN 06/11/21 allopurinoL [Zyloprim] 100 mg PO DAILY 06/11/21 Methadone [Methadone Hcl] 10 mg PO QPM 01/24/22 Allergies/Adverse Reactions: Allergies Allergy/AdvReac Type Severity Reaction Status Date / Time No Known Drug Allergies Allergy Verified 01/23/22 09:37 Anes History & Medical History - Anesthetic History Anesthesia Complications: reports: No previous complications - Medical History Cardiovascular: reports: Hypertension, High cholesterol, Atrial fibrillation, Other (cardiomyopathy hypertrophic) Pulmonary: reports: None Gastrointestinal: reports: GERD, Chronic constipation Urinary: reports: None Neuro: reports: Migraines Musculoskeletal: reports: Osteoarthritis, Gout Endocrine/Autoimmune: reports: None Blood Disorders: reports: None Skin: reports: None Smoking Status: Former smoker - Surgical History General: reports: Appendectomy Orthopedic: reports: Spine surgery Exam General: Alert, Oriented x3, Cooperative, Mild distress Dental: WNL Mouth Opening: Greater than 4 Fingerbreadths Neck Mobility: Normal Mallampati classification: II Respiratory: Decreased breath sounds Cardiovascular: Other (irregular, AF with RVR) Plan Anesthesia Type: MAC Consent for Procedure(s) Verified and Reviewed: Yes Code Status: Attempt Resuscitation ASA classification: 3-Severe systemic disease Is this case an emergency?: Yes
--- NOTE | 2022-01-25 10:30 | ANESTHESIA POST OP EVALUATION ---
Anesthesia Post Eval - Post Anesthesia Eval Vitals: Last Vital Signs Temp 36.6 C 01/25/22 09:00 Pulse 57 L 01/25/22 09:00 Resp 20 01/25/22 09:00 BP 153/75 H 01/25/22 09:00 Pulse Ox 99 01/25/22 09:00 CV Function Including HR & BP: Stable Pain Control: Satisfactory Nausea & Vomiting: Negative Mental Status: Baseline Respiratory Status: Airway Patent Hydration Status: Satisfactory Anesthesia Complications: None
--- NOTE | 2022-01-25 10:49 | PROVIDER PROGRESS NOTE ---
Progress Note HPI:This is a pleasant 81-year-old female with a past medical history significant for diastolic dysfunction grade 2, CKD-3, atherosclerosis of the aorta, cardiomegaly, chronic atrial fibrillation on Eliquis, hypertension, hyperlipidemia, who follows Dr. 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 Patient also states that she has intermittent palpitations for which patient was seen by cardiology about a week ago with instructions to resume her metoprolol 100 mg and to hold it down to 50 mg if her heart rate was less than 70 bpm. She was seen approximately 10 days ago in the ER feeling with palpitations and her metoprolol was increased from 50 to 75 mg. Her EKG at that time showed normal sinus rhythm and her labs were essentially normal. On this visitation patient was found to have a sodium of 122 with a potassium of 6.0 and a repeat of 6.4 along with creatinine of 1.9 for which her baseline creatinine ranges between 1.0-1.5. In addition her BNP was elevated at thousand 342, AST of 54, bicarb of 23 with chloride of 88, BUN of 27, glucose of 117. TSH elevated at 7.30, CXR showed trace right-sided pleural effusion and EKG showed baseline LBBB. Patient denied chest pain however felt a chest comfort with associated orthopnea and dyspnea that she relates as her symptomatology. Her respiratory rate was 18-30 breaths/min, urine output was decreased, 96% O2 saturation on room air, and her systolic blood pressures ranged from 120s to 130s with heart rate controlled at 60s to 80s. Patient denied fevers, nausea, emesis, visual disturbances, GI/ symptoms, flank pain, maculopapular rashes or joint tenderness. Patient is not on diuretic and is on methadone and Lyrica along with Norpace and metoprolol and atorvastatin and takes Imitrex as well as allopurinol. Hospitalist service was requested for further evaluation and management treatment. Todays' examination: A rapid response was called on the morning of rounds as patient was extremely tachypneic and with an accelerated hypertensive excursion with SBP's in the 160s to 170s with DBP above 100s with shortness of breath and CXR confirming fluid overload. Patient was given 1 dose of IV Lasix at 40 mg and placed on nitroglycerin drip with improvement to SBP's, nonrebreather with ABG showing no VQ mismatch and mild respiratory acidemia with no overt acid-base disturbances noted. Patient's methadone was dispensed as scheduled and patient's own medications of Lopressor and Norpace were held given her sinus bradycardia with EKG showing sinus rhythm with prolonged VT and baseline LBBB. Patient denied chest pain, nausea, fevers, visual disturbances, paresthesias, abdominal pain, GI or symptoms, [employer] rash or joint tenderness. O/E: VSS. Patient is cooperative, pleasant, ill-appearing, in no acute respiratory distress. HEENT: PERRLA/EOMI BL. MMM. NCAT Neck: No JVD, thyromegaly, trachea midline, no LAD and bilaterally CV/lungs: Irregularly irregular, bradycardia, S1-S2 within normal limits, no gallops, clicks or rubs. Bilateral rales to the bases, no wheezing or rhonchi. Abdomen: Soft, nontender, nondistended, plus bowel sounds all quadrants, no HSM /rectal: Iyer catheter in place with yellow urine. Extremities/skin: Bilateral lower extremity varicosities with trace edema/bipedal. 2+ pulses dorsalis pedis. Neuro: Grossly intact. Labs Reviewed Imaging studies: Reviewed Assessment/plan: (1) Electrolyte disturbance( Hyponatremia, hyperkalemia, hypomagnesemia) Conclusion/Plan: Patient's sodium was at 122 on admission for which prior sodium level was 130 on 01/13 and has been as low as 133 in the years of 2015 in 2018. Urine sodium of less than 12 and postobstructive uropathy with urinary retention appears to have a mixed etiology for her ELBERT. Had been on hydrochlorothiazide but had discontinued approximately 1 week prior to admission. States that she drinks about 1.5 L in a 24. Checking her serum and urine osmolality is pending. Etiology of hyper kalemia other than her ELBERT and underlying arrhythmia with diastolic dysfunction without patient being on KCl supplementation or Aldactone or even diuretics for that matter. Potassium has been corrected with Kayexalate with improvements to her potassium and no evidence of hyperacute T waves on EKG. Patient receiving magnesium sulfate with electrolyte repletion protocol for hypomagnesemia. She is also hypochloremic as well and will calculate sodium correction no more than 0.5 mEq/L/h to avoid ODS. Patient's sodium levels have down trended but potassium levels are now normal, ionized calcium to correct, correct magnesium and other electrolyte deficiencies. Will place on sodium bicarbonate 650 mg p.o. twice daily, defer off sodium chloride given her fluid overload status. Will be on IV Lasix given due to her pulmonary edema. (2) Acute kidney injury superimposed on CKD-3 Conclusion/Plan: Patient with a creatinine of 1.9 upon admission with baseline ranging between 1.0 and 1.5 with a history of chronic kidney disease stage III. Patient has underlying hypertension. Unclear if patient had a hypoperfusion in the setting of taking high doses of Lopressor and Norpace and has been off hydrochlorothiazide for approximately more than a week which are the most common offending agents at this time to be identified. Renal work-up was initiated and retroperitoneal ultrasound showed urinary retention without hydronephrosis, stones or other pathology. We will place a Iyer catheter for monitoring of strict I's and O's. BUN and creatinine ratio and urine protein does not appear to be abnormal. Uric acid, cortisol levels were unremarkable. TSH was elevated but free T4 was normal. Serum and urine osmolality to follow. It appears that patient may have a mixed etiology of prerenal azotemia as urine sodium was less than 12 and with urinary retention now on a Iyer catheter with improved renal function. IV fluids are now held given her fluid overload status. IV Lasix pr ovided as well as IV nitro now off, to avoid fluid overload given her diastolic dysfunction CHF, avoid nephrotoxic agents, correct underlying electrolyte disturbances. (3) RVR atrial fibrillation/atypical flutter---resolved Conclusion/Plan: Patient was seen by Dr. Chisholm nurse practitioner on for her atrial fibrillation and atypical atrial flutter for which patient was scheduled for cardioversion at [facility] in [place] and was instructed on taking her Eliquis and increasing her Lopressor 200 mg p.o. twice daily and never his heart rate less than 70 to go back on metoprolol 50 mg twice daily due to her conversion to sinus rhythm. She had also been on Norpace during this time. Patient's EKG shows this rhythm at 66 bpm with atrial premature complexes and couplets with a short VT interval and a left bundle branch block. Her troponin initially normal but slight bump post DC cardioversion on 01/24. Has remained on Eliquis and aspirin since admission. Her home BP meds were initially held given her slow rate atrial fibrillation however she did develop RVR A. fib that went up into the 150s which she responded well to DC cardioversion. Echocardiogram did show an EF of 41% with an moderate right ventricular enlargement with moderate increase in left atrial volume index and RVSP of 50 mmHg. She did see cardiology recently w/ [facility] cardiology service at [phone]. 01/24: Despite receiving up to 20 mg of IV Lopressor and oral Lopressor up to 100 mg along with Norpace up to 100 mg as well as digoxin 250 mcg of the loading dose she continued to display RVR A. fib in the 120s-140s and was in sinus tachycardia prior to patient receiving DC cardioversion under conscious sedation on 01/24. Patient was somnolent after propofol and sinus bradycardia without AV blocks noted post DC cardioversion. (4) Sinus bradycardia Had DC cardioversion under conscious sedation on 01/24 and is now in sinus bradycardia with EKG showing sinus rhythm at 56 bpm although she does drop into the upper 40s on telemetry has a prolonged VT interval and baseline left bundle branch block. Patient with mildly bumped troponins in the setting of recent DC cardioversion which is likely expected however treating for underlying fluid overload. Would avoid Lopressor and Norpace as well as other sedate of agents like temazepam and will keep off of Lyrica given her respiratory status. Elevated TSH w/ normal free T4 to suggest possible subclinical hypothyroidism. (5) Transaminitis/congestive hepatopathy Patient's LFTs have up trended in the setting of her congestive hepatopathy likely as a result of her RVR A. fib/atypical atrial flutter. She was DC cardioverted on 01/24 and continues with uptrending and LFTs.Patient denies abdominal pain, pruritus although T bilirubin has normalized from 2.1 may consider abdominal ultrasound if worsening. Patient is on a atorvastatin however will not discontinue as she is still below 3 times upper normal limit of LFTs. Avoid hepatotoxic agents, she is on a statin currently. Not a candidate for amiodarone at this time. Viral serologies to follow. 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 Patient's primary machine printer hose is Dr. Chisholm and was previously instructed to take Lopressor 100 mg p.o. twice daily and closely monitor her heart rate but had reduced this down to 50 mg and was again instructed to increase to 75 mg recently due to patient experiencing weakness and fatigue for which she was seen 10 days ago days ago at the emergency department at the time with an EKG unremarkable and labs unremarkable. Her BNP is elevated at thousand 342 and her prior 2D echo in 03/28 2019 shows a grade 2 diastolic dysfunction EF of 70-75%. Patient will be on IV fluids and will attempt to avoid fluid overload given her diastolic dysfunction however in the setting of decreased urinary output and hyponatremia will need to monitor carefully. Daily weights, strict I's and O's. Holding off of diuretics for now given patient's hyponatremia and ELBERT. Does have underlying history of diastolic dysfunction grade 2 and current Echocardiogram s hows an EF of 41% with a global longitudinal peak strain averaging -12%, moderate concentric left ventricular hypertrophy, paradoxical septal motion consistent with left bundle branch block, moderate right ventricular enlargement with right ventricular systolic function mildly impaired, moderate increase in the left atrial volume index of 45 mL/M squared, severe right atrial enlargement. There is mild to moderate tricuspid regurgitation with moderately abnormal right heart pressures RVSP at 50 mmHg. 01/25: A rapid response was called during a.m. rounds due to patient's tachypnea with shortness of breath, CXR shows fluid overload indicative of pulmonary edema in the setting of her hypertensive excursion with SBP's in the 170s and DBPs above 100s which IV nitroglycerin was given with good results as well as IV Lasix. Would continue with ongoing IV Lasix as long as her BP supports this. This may influence patient's electrolyte disturbances. (7) Accelerated HTN w/ Transient hypotension Patient was placed on IV nitroglycerin due to hypertensive excursion with likely flash pulmonary edema as it pertains to her increased demand and afterload. Her systolic pressures had weaned down to 80s and will be placed on midodrine as needed and off the IV nitroglycerin for now. She had received IV Lasix in the a.m. and will hold off on her BP meds as well as isosorbide 30 mg p.o. daily. Although PE is on differential she has been on ASA and eliquis since admission and unlikely as a physiological response to BP agents may explain this drop in BP's. (8) Leukocytosis---Resolved Conclusion/Plan: Unclear of source of infection although she has abnormal UA and may have a UTI given her urinary retention. She lacks fever, flank pain or or other s/s of infection. UCx pending. (9) General weakness Conclusion/Plan: Likely as it pertains to her electrolyte disturbance. Correct underlying medical conditions. PT/OT to follow. (10) Acute urinary retention Conclusion/Plan: Renal US shows 450 cc of retained urine. FC placed w/ up to 2.2 L urine now, continue to monitor UO while on IVF's. She has an abnormal UA but w/o evidence of hydro, stones or s/s of UTI. Will start flomax to improve urinary retention at level of urethra. (11) Abnormal finding on urinalysis Conclusion/Plan: Asymptomatic bacteriuria w/o s/s of infection but does have a leukocytosis and no fever. Urine culture shows more than 100,000 polymicrobial contamination likely. Defer off antibiotics for now.Patient does have an indwelling Iyer catheter with good urine output. Total critical care time: 40 minutes.
[2022-01-25 10:59] LABS: DIGOXIN 0.6 ng/mL
[2022-01-25] MEDS ORDERED: CALCIUM GLUC 1,000MG/50ML-NACL 1,000 MG/50 ML BAG IV ONE (11:08)
[2022-01-25 12:27] LABS: CALCIUM 8.6 mg/dL (8.5-10.3); CREATININE 1.3 mg/dL (0.4-1.0); POTASSIUM 4.6 mmol/L (3.5-5.0)
[2022-01-25 12:56] LABS: ESTIMATED AVERAGE GLUCOSE 111 mg/dL (70-100); HEMOGLOBIN A1c% 5.5 % (4.27-6.07)
[2022-01-25] MEDS: ISOSORBIDE MONONITRATE ER 30 MG TABLET PO SCH (12:56)
[2022-01-25] MEDS: FUROSEMIDE 20 MG/2 ML VIAL IVP SCH (13:15)
[2022-01-25] MEDS: SUMAtriptan 25 MG TABLET PO PRN ×2 (16:46)
[2022-01-25] MEDS: hydrALAZINE INJ 20 MG/ML VIAL IVP PRN (19:25)
[2022-01-25] MEDS ORDERED: LORazepam 0.5 MG TABLET PO PRN (19:34)
[2022-01-25] MEDS ORDERED: TEMAZEPAM 15 MG CAPSULE PO PRN (19:35)
[2022-01-25 19:44] LABS: CREATININE 1.2 mg/dL (0.4-1.0)
[2022-01-25] MEDS: ATORVASTATIN 40 MG TABLET PO SCH (20:32)
[2022-01-25] MEDS: PREGABALIN 100 MG CAPSULE PO SCH (20:32)
[2022-01-25] MEDS: PROCHLORPERAZINE 10 MG/2 ML VIAL IVP PRN (20:34)
[2022-01-25] MEDS ORDERED: METOPROLOL TARTRATE 50 MG TABLET PO SCH (21:00)
[2022-01-26 00:22] LABS: CALCIUM, IONIZED 1.12 mmol/L (1.15-1.33); VBG PH 7.422 (7.31-7.41)
[2022-01-26] MEDS: SODIUM CHLORIDE FLUSH 0.9% 10 ML SYRINGE IVP SCH ×3 (00:59→15:49)
[2022-01-26 04:59] LABS: CALCIUM, IONIZED 1.13 mmol/L (1.15-1.33); VBG PH 7.427 (7.31-7.41)
[2022-01-26 05:03] LABS: ALBUMIN 3.2 g/dL (3.2-5.5); BASOPHILS % (AUTO) 0.1 %; CALCIUM 8.8 mg/dL (8.5-10.3); CREATININE 1.1 mg/dL (0.4-1.0); EOSINOPHILS # (AUTO) 0.1 10^3/uL (0.0-0.7); EOSINOPHILS % (AUTO) 1.5 %; HCT - HEMATOCRIT 30.6 % (37.0-47.0); HGB - HEMOGLOBIN 10.4 g/dL (12.0-16.0); LYMPHOCYTES # (AUTO) 1.4 10^3/uL (1.5-3.5); LYMPHOCYTES % (AUTO) 16.8 %; MAGNESIUM 1.4 mg/dL (1.7-2.8); MEAN CORPUSCULAR HEMOGLOBIN 31.3 pg (27.0-31.0); MEAN CORPUSCULAR VOLUME 92.2 fL (81.0-99.0); MONOCYTES # (AUTO) 0.9 10^3/uL (0.0-1.0); NEUTROPHILS # (AUTO) 5.7 10^3/uL (1.5-6.6); PHOSPHORUS 2.1 mg/dL (2.5-4.6); PLT - PLATELET COUNT 119 10^3/uL (130-450); POTASSIUM 3.8 mmol/L (3.5-5.0); RED BLOOD COUNT 3.32 10^6/uL (4.20-5.40); RED CELL DISTRIBUTION WIDTH 15.1 % (12.0-15.0); WHITE BLOOD COUNT 8.1 x10^3/uL (4.8-10.8)
[2022-01-26] MEDS: FUROSEMIDE 20 MG/2 ML VIAL IVP SCH ×2 (06:07→14:32)
[2022-01-26] MEDS: SODIUM BICARBONATE 650 MG TABLET PO SCH ×2 (06:07→14:32)
[2022-01-26] MEDS ORDERED: MAGNESIUM SULFATE 2 GM in SODIUM CHLORIDE 0.9% 50 ML IV ONE (07:01)
[2022-01-26 07:37] LABS: % IRON SATURATION 12 % (20-50); IRON 35 ug/dL (28-170); TOTAL IRON BINDING CAPACITY 290 ug/dL (250-450); TRANSFERRIN 207 mg/dL (192-382)
[2022-01-26 07:47] LABS: ALBUMIN 3.4 g/dL (3.2-5.5); BILIRUBIN,DIRECT 0.1 mg/dL (0.1-0.5); BILIRUBIN,TOTAL 0.6 mg/dL (0.2-1.0); TOTAL PROTEIN 5.5 g/dL (6.7-8.2)
[2022-01-26 07:55] LABS: FOLATE 18.01 ng/mL (5.90 - >24.8)
--- NOTE | 2022-01-26 08:38 | PROVIDER PROGRESS NOTE ---
Progress Note HPI:This is a pleasant 81-year-old female with a past medical history significant for diastolic dysfunction grade 2, CKD-3, atherosclerosis of the aorta, cardiomegaly, chronic atrial fibrillation on Eliquis, hypertension, hyperlipidemia, who follows Dr. Chisholm as her primary adjustment examiner who presents to [facility] emergency department with several day history of fatigue, orthopnea, dyspnea and lightheadedness. Patient also states that she has intermittent palpitations for which patient was seen by cardiology about a week ago with instructions to resume her metoprolol 100 mg and to hold it down to 50 mg if her heart rate was less than 70 bpm. She was seen approximately 10 days ago in the ER feeling with palpitations and her metoprolol was increased from 50 to 75 mg. Her EKG at that time showed normal sinus rhythm and her labs were essentially normal. On this visitation patient was found to have a sodium of 122 with a potassium of 6.0 and a repeat of 6.4 along with creatinine of 1.9 for which her baseline creatinine ranges between 1.0-1.5. In addition her BNP was elevated at thousand 342, AST of 54, bicarb of 23 with chloride of 88, BUN of 27, glucose of 117. TSH elevated at 7.30, CXR showed trace right-sided pleural effusion and EKG showed baseline LBBB. Patient denied chest pain however felt a chest comfort with associated orthopnea and dyspnea that she relates as her symptomatology. Her respiratory rate was 18-30 breaths/min, urine output was decreased, 96% O2 saturation on room air, and her systolic blood pressures ranged from 120s to 130s with heart rate controlled at 60s to 80s. Patient denied fevers, nausea, emesis, visual disturbances, GI/ symptoms, flank pain, maculopapular rashes or joint tenderness. Patient is not on diuretic and is on methadone and Lyrica along with Norpace and metoprolol and atorvastatin and takes Imitrex as well as allopurinol. Hospitalist service was requested for further evaluation and management treatment. Patient was seen at bedside and with excessive somnolence as she has been having difficulty falling asleep and was given Lyrica as well as temazepam. She was f inally able to go to sleep at approximately 4 in the morning. Her magnesium is low at 1.4, creatinine improved to 1.1 as well as sodium of 126. Her VBG shows a pH of 7.427 with a slightly decreased ionized calcium. Her troponins peaked at 20.5 and has down trended to a last troponin of 17.9 with a digoxin level of 0.6. She has new anemia with a hemoglobin of 10.4 and new thrombocytopenia with platelets of 119, no bleeding events and she is on aspirin and Eliquis. Patient's blood pressures have been labile and she does go down into systolics of 80s and diastolics of 50s but currently at 142/89. 100% O2 saturation on 2 L nasal cannula although no documentation of desaturations and she has shallow breathing with RR 10-14 and a heart rate sinus bradycardia at ranging 48-56 bpm, afebrile. Remains on lopressor 50 mg p.o. twice daily and Norpace being held given patient's sinus bradycardia confirmed on EKG with a prolonged SD and baseline LBBB. Patient was provided nitroglycerin for accelerated hypertension on 01/25 and weaned off of nitroglycerin drip and remains on isosorbide at no time. On IV Lasix for flash pulmonary edema.It does not appear that patient is withdrawing from methadone or even Lyrica for that matter and there is no mention of ongoing shortness of breath, abdominal pain, fevers, nausea, chest pain, GI or symptoms, maculopapular rash or joint tenderness. O/E: VSS. Patient is cooperative, pleasant, ill-appearing, somnolent, in no acute respiratory distress. HEENT: PERRLA/EOMI BL. MMM. NCAT Neck: No JVD, thyromegaly, trachea midline, no LAD and bilaterally CV/lungs: RRR. bradycardia, S1-S2 within normal limits, no gallops, clicks or rubs. Improved aeration to bilateral lung aguilar, no rhonchi, wheezing. Shallow breathing. Abdomen: Soft, nontender, nondistended, plus bowel sounds all quadrants, no HSM /rectal: Iyer catheter in place with yellow urine. Extremities/skin: Bilateral lower extremity varicosities with trace edema/bipedal. 2+ pulses dorsalis pedis. Neuro: Grossly intact. Labs Reviewed Imaging studies: Reviewed Assessment/plan: (1) Electrolyte disturbance( Hyponatremia, hyperkalemia, hypomagnesemia) Conclusion/Plan: Patient's sodium was at 122 on admission for which prior sodium level was 130 on 01/13 and has been as low as 133 in the years of 2014 in 2018. Urine sodium of less than 12 and postobstructive uropathy with urinary retention appears to have a mixed etiology for her ELBERT. Had been on hydrochlorothiazide but had discontinued approximately 1 week prior to admission. States that she drinks about 1.5 L in a 24. Checking her serum and urine osmolality is pending. Etiology of hyper kalemia other than her ELBERT and underlying arrhythmia with diastolic dysfunction without patient being on KCl supplementation or Aldactone or even diuretics for that matter. Potassium has been corrected with Kayexalate with improvements to her potassium and no evidence of hyperacute T waves on EKG. Patient receiving magnesium sulfate with electrolyte repletion protocol for hypomagnesemia. She is also hypochloremic as well and will calculate sodium correction no more than 0.5 mEq/L/h to avoid ODS.Patient's sodium levels have improved but potassium levels are now normal, ionized calcium to correct, correct magnesium and other electrolyte deficiencies. Sodium bicarbonate uptitrated to 650 mg p.o. 3 times daily now. Defer off sodium chloride given her fluid overload status. Will be on IV Lasix given due to her pulmonary edema. Will replace calcium deficiencies with calcium gluconate. Replacing magnesium with electrolyte protocol as well. (2) Acute kidney injury superimposed on CKD-3---Improved Conclusion/Plan: Patient with a creatinine of 1.9 upon admission with baseline ranging between 1.0 and 1.5 with a history of chronic kidney disease stage III. Patient has underlying hypertension. Unclear if patient had a hypoperfusion in the setting of taking high doses of Lopressor and Norpace and has been off hydrochlorothiazide for approximately more than a week which are the most common offending agents at this time to be identified. Renal work-up was initiated and retroperitoneal ultrasound showed urinary retention without hydronephrosis, stones or other pathology. We will place a Iyer catheter for monitoring of strict I's and O's. BUN and creatinine ratio and urine protein does not appear to be abnormal. Uric acid, cortisol levels were unremarkable. TSH was elevated but free T4 was normal. Serum and urine osmolality to follow. It appears that patient may have a mixed etiology of prerenal azotemia as urine sodium was less than 12 and with urinary retention now on a Iyer catheter with improved renal function. IV fluids are now held given her fluid overload status. IV Lasix provided as well as IV nitro now off, to avoid fluid overload given her diastolic dysfunction CHF, avoid nephrotoxic agents, correct underlying electrolyte disturbances. (3) RVR atrial fibrillation/atypical flutter---resolved Conclusion/Plan: Patient was seen by Dr. Chisholm nurse practitioner on for her atrial fibrillation and atypical atrial flutter for which patient was scheduled for cardioversion at [facility] in [place] and was instructed on taking her Eliquis and increasing her Lopressor 200 mg p.o. twice daily and never his heart rate less than 70 to go back on metoprolol 50 mg twice daily due to her conversion to sinus rhythm. She had also been on Norpace during this time. Patient's EKG shows this rhythm at 66 bpm with atrial premature complexes and couplets with a short SD interval and a left bundle branch block. Her troponin initially normal but slight bump post DC cardioversion on 01/24. Has remained on Eliquis and aspirin since admission. Her home BP meds were initially held given her slow rate atrial fibrillation however she did develop RVR A. fib that went up into the 150s which she responded well to DC cardioversion. Echocardiogram did show an EF of 41% with an moderate right ventricular enlargement with moderate increase in left atrial volume index and RVSP of 50 mmHg. She did see cardiology recently / [facility] cardiology service at [phone]. 01/24: Despite receiving up to 20 mg of IV Lopressor and oral Lopressor up to 100 mg along with Norpace up to 100 mg as well as digoxin 250 mcg of the loading dose she continued to display RVR A. fib in the 120s-140s and was in sinus tachycardia prior to patient receiving DC cardioversion under conscious sedation on 01/24. Patient was somnolent after propofol and sinus bradycardia without AV blocks noted post DC cardioversion. 01/25-/01/26: Patient has remained in sinus rhythm but with bradycardia and EKG showing prolonged SD with no AV blocks. (4) Sinus bradycardia Had DC cardioversion under conscious sedation on 01/24 and is now in sinus bradycardia with EKG showing sinus rhythm at 56 bpm although she does drop into the upper 40s on telemetry has a prolonged SD interval and baseline left bundle branch block. Patient with mildly bumped troponins in the setting of recent DC cardioversion which is likely expected however treating for underlying fluid overload. Would avoid Lopressor and Norpace as well as other sedate of agents like temazepam and will keep off of Lyrica given her respiratory status. Elevated TSH w/ normal free T4 to suggest possible subclinical hypothyroidism. Continue to monitor on telemetry. (5) Transaminitis/congestive hepatopathy Patient's LFTs have up trended in the setting of her congestive hepatopathy likely as a result of her RVR A. fib/atypical atrial flutter. She was DC c ardioverted on 01/24 and continues with uptrending and LFTs.Patient denies abdominal pain, pruritus although T bilirubin has normalized from 2.1 may consider abdominal ultrasound if worsening. Patient is on a atorvastatin however will not discontinue as she is still below 3 times upper normal limit of LFTs. Avoid hepatotoxic agents, she is on a statin currently. Not a candidate for amiodarone at this time. Viral serologies to follow. 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 Patient's primary adjustment examiner is Dr. Chisholm and was previously instructed to take Lopressor 100 mg p.o. twice daily and closely monitor her heart rate but had reduced this down to 50 mg and was again instructed to increase to 75 mg recently due to patient experiencing weakness and fatigue for which she was seen 10 days ago days ago at the emergency department at the time with an EKG unremarkable and labs unremarkable. Her BNP is elevated at thousand 342 and her prior 2D echo in 03/28 2019 shows a grade 2 diastolic dysfunction EF of 70-75%. Patient will be on IV fluids and will attempt to avoid fluid overload given her diastolic dysfunction however in the setting of decreased urinary output and hyponatremia will need to monitor carefully. Daily weights, strict I's and O's. Holding off of diuretics for now given patient's hyponatremia and ELBERT. Does have underlying history of diastolic dysfunction grade 2 and current Echocardiogram shows an EF of 41% with a global longitudinal peak strain averaging -12, moderate concentric left ventricular hypertrophy, paradoxical septal motion consistent with left bundle branch block, moderate right ventricular enlargement with right ventricular systolic function mildly impaired, moderate increase in the left atrial volume index of 45 mL/M squared, severe right atrial enlargement. There is mild to moderate tricuspid regurgitation with moderately abnormal right heart pressures RVSP at 50 mmHg. 01/25: A rapid response was called during a.m. rounds due to patient's tachypnea with shortness of breath, CXR shows fluid overload indicative of pulmonary edema in the setting of her hypertensive excursion with SBP's in the 170s and DBPs above 100s which IV nitroglycerin was given with good results as well as IV Lasix. Would continue with ongoing IV Lasix as long as her BP supports this. This may influence patient's electrolyte disturbances. 01/26: Patient with somnolence at bedside however does not appear to have unstable vital signs in terms of her blood pressures although labile she is receiving IV Lasix with negative net balance of approximately 9 L since admission, off of IV nitroglycerin drip and receiving isosorbide during the day and Lopressor being given at 50 mg p.o. twice daily with Norpace being held. (7) Accelerated HTN w/ Transient hypotension---improved Patient was placed on IV nitroglycerin due to hypertensive excursion with likely flash pulmonary edema as it pertains to her increased demand and afterload. Her systolic pressures had weaned down to 80s and will be placed on midodrine as needed and off the IV nitroglycerin for now. She had received IV Lasix in the a.m. and will hold off on her BP meds as well as isosorbide 30 mg p.o. daily. Although PE is on differential she has been on ASA and eliquis since admission and unlikely as a physiological response to BP agents may explain this drop in BP's. Midodrine prn. (8) Leukocytosis---Resolved Conclusion/Plan: Unclear of source of infection although she has abnormal UA and may have a UTI given her urinary retention. She lacks fever, flank pain or or other s/s of infection. UCx pending. (9) General weakness Conclusion/Plan: Likely as it pertains to her electrolyte disturbance. Correct underlying medical conditions. PT/OT have been unable to work with patient due to her somnolence although I suspect that she has mobility deficits and may require SNF placement. (10) Acute urinary retention---resolved Conclusion/Plan: Renal US showed 450 cc of retained urine. Iyer catheter with no further obstruction noted, Placed on Flomax initially however due to BP concerns discontinued. Continue to monitor UO while on IVF's. She has an abnormal UA but w/o evidence of hydro, stones or s/s of UTI. (11) Abnormal finding on urinalysis Conclusion/Plan: Asymptomatic bacteriuria w/o s/s of infection but does have a leukocytosis and no fever. Urine culture shows more than 100,000 polymicrobial contamination likely. Defer off antibiotics for now.Patient does have an indwelling Iyer catheter with good urine output. (12) Hyperglycemia Likely stress-induced however will obtain a hemoglobin A1c. Total critical care time: 40 minutes.
[2022-01-26] MEDS: MAGNESIUM OXIDE 400 MG TABLET PO SCH ×3 (08:43→15:49)
[2022-01-26] MEDS: APIXABAN 2.5 MG TABLET PO SCH ×2 (08:43→20:08)
[2022-01-26] MEDS: DOCUSATE SODIUM 250 MG CAPSULE PO SCH (08:44)
[2022-01-26] MEDS: METHADONE 5 MG TABLET PO SCH ×2 (08:44→20:07)
[2022-01-26] MEDS: PANTOPRAZOLE 40 MG TABLET PO SCH (08:45)
[2022-01-26] MEDS: SENNA 8.6 MG TABLET PO SCH (08:45)
[2022-01-26] MEDS: polyethylene glycoL 3350 17 GM PACKET PO SCH (08:45)
[2022-01-26] MEDS: NEUTRA-PHOS 250 MG TABLET PO SCH ×2 (08:48→10:14)
[2022-01-26] MEDS: MIDODRINE 2.5 MG TABLET PO PRN (10:15)
[2022-01-26 11:35] LABS: CALCIUM 9.1 mg/dL (8.5-10.3); CREATININE 1.1 mg/dL (0.4-1.0); POTASSIUM 3.8 mmol/L (3.5-5.0)
[2022-01-26] MEDS: ISOSORBIDE MONONITRATE ER 30 MG TABLET PO SCH (11:56)
[2022-01-26] MEDS: SUMAtriptan 25 MG TABLET PO PRN (15:48)
[2022-01-26] MEDS: PREGABALIN 100 MG CAPSULE PO SCH (20:07)
[2022-01-26] MEDS: ATORVASTATIN 40 MG TABLET PO SCH (20:07)
[2022-01-26] MEDS: METOPROLOL TARTRATE 25 MG TABLET PO SCH (20:08)
[2022-01-27] MEDS: SODIUM CHLORIDE FLUSH 0.9% 10 ML SYRINGE IVP SCH ×4 (00:01→23:49)
[2022-01-27] MEDS: FUROSEMIDE 20 MG/2 ML VIAL IVP SCH (05:40)
[2022-01-27 05:44] LABS: BASOPHILS % (AUTO) 0.1 %; EOSINOPHILS # (AUTO) 0.2 10^3/uL (0.0-0.7); EOSINOPHILS % (AUTO) 2.7 %; HCT - HEMATOCRIT 31.5 % (37.0-47.0); HGB - HEMOGLOBIN 10.4 g/dL (12.0-16.0); LYMPHOCYTES # (AUTO) 1.2 10^3/uL (1.5-3.5); MEAN PLATELET VOLUME 12.6 fL (7.9-10.8); MONOCYTES # (AUTO) 0.9 10^3/uL (0.0-1.0); MONOCYTES % (AUTO) 11.2 %; NEUTROPHILS # (AUTO) 5.4 10^3/uL (1.5-6.6); NEUTROPHILS % (AUTO) 70.5 %; PLT - PLATELET COUNT 142 10^3/uL (130-450); RED BLOOD COUNT 3.35 10^6/uL (4.20-5.40); RED CELL DISTRIBUTION WIDTH 15.8 % (12.0-15.0); WHITE BLOOD COUNT 7.7 x10^3/uL (4.8-10.8)
[2022-01-27 05:53] LABS: ALBUMIN 3.1 g/dL (3.2-5.5); ALBUMIN/GLOBULIN RATIO 1.3 (1.0-2.2); BILIRUBIN,TOTAL 0.8 mg/dL (0.2-1.0); CALCIUM 8.8 mg/dL (8.5-10.3); MAGNESIUM 1.5 mg/dL (1.7-2.8); POTASSIUM 4.1 mmol/L (3.5-5.0); TOTAL PROTEIN 5.4 g/dL (6.7-8.2)
--- NOTE | 2022-01-27 06:26 | DISCHARGE SUMMARY ---
Discharge Summary Admit Date: 01/23/22 Discharge Date: 01/27/22 Discharging Provider: Dr. Duong Primary Care Provider: Darrin Salinas Code Status: Attempt Resuscitation Condition at Discharge: Good Discharge Disposition: Home Health Service Discharge Facility Name: [facility] - DIAGNOSES Admission Diagnoses: (1) Acute hyponatremia (2) Hyperkalemia (3) Acute kidney injury superimposed on CKD (4) Atrial fibrillation and flutter (5) Acute on chronic diastolic (congestive) heart failure (6) Leukocytosis (7) General weakness (8) Malignant hypertension (9) Acute urinary retention (10) Abnormal finding on urinalysis Discharge Diagnoses with Status of Each Condition: (1) Electrolyte disturbance( Hyponatremia, hyperkalemia, hypomagnesemia)---Reso lving (2) Acute kidney injury superimposed on CKD-3---Stable (3) RVR atrial fibrillation/atypical flutter s/p DC cardioversion---resolved (4) Sinus bradycardia---Stable (5) Transaminitis/congestive hepatopathy---resolving (6) Acute on chronic systolic and diastolic (congestive) heart failure/"flash" Pulmonary edema---resolving (7) Accelerated HTN w/ Transient hypotension---resolved (8) Leukocytosis---Resolved (9) General weakness---Improved (10) Acute urinary retention---resolved (11) Abnormal finding on urinalysis---stable (12) Hyperglycemia---improved - HPI History of Present Illness: HPI:This is a pleasant 81-year-old female with a past medical history significant for diastolic dysfunction grade 2, CKD-3, atherosclerosis of the aorta, cardiomegaly, chronic atrial fibrillation on Eliquis, hypertension, hyperlipidemia, who follows Dr. Chisholm as her primary marriage counselor minister who presents to [facility] emergency department with several day history of fatigue, orthopnea, dyspnea and lightheadedness. Patient also states that she has intermittent palpitations for which patient was seen by cardiology about a week ago with instructions to resume her metoprolol 100 mg and to hold it down to 50 mg if her heart rate was less than 70 bpm. She was seen approximately 10 days ago in the ER feeling with palpitations and her metoprolol was increased from 50 to 75 mg. Her EKG at that time showed normal sinus rhythm and her labs were essentially normal. On this visitation patient was found to have a sodium of 122 with a potassium of 6.0 and a repeat of 6.4 along with creatinine of 1.9 for which her baseline creatinine ranges between 1.0-1.5. In addition her BNP was elevated at thousand 342, AST of 54, bicarb of 23 with chloride of 88, BUN of 27, glucose of 117. TSH elevated at 7.30, CXR showed trace right-sided pleural effusion and EKG showed baseline LBBB. Patient denied chest pain however felt a chest comfort with associated orthopnea and dyspnea that she relates as her symptomatology. Her respiratory rate was 18-30 breaths/min, urine output was decreased, 96% O2 saturation on room air, and her systolic blood pressures ranged from 120s to 130s with heart rate controlled at 60s to 80s. Patient denied fevers, nausea, emesis, visual disturbances, GI/ symptoms, flank pain, maculopapular rashes or joint tenderness. Patient is not on diuretic and is on methadone and Lyrica along with Norpace and metoprolol and atorvastatin and takes Imitrex as well as allopurinol. Hospitalist service was requested for further evaluation and management treatment. - CONSULTS | PROCEDURES Consultations: Anesthesia Procedures: Direct current synchronized cardioversion at 120 J performed on 01/24/2022 - HOSPITAL COURSE Hospital Course: Patient was admitted for symptomatic hyponatremia with no neurological deficits. Her serum sodium upon admission was 122. Although in previous sodium draws she has been as low as 133 in 2014 2017 she was found to have a mixed etiology for her low sodium given her history of grade 2 diastolic dysfunction with a hypervolemic hyponatremia along with a low serum osmolality and a normal urine osmolality to indicate possible underlying SIADH. In addition patient also presented with hyperkalemia with no evidence of hyperacute T waves on EKG. Low magnesium along with other electrolyte disturbances were addressed with elec trolyte protocol was administered in the ICU. On day 1 of patient's admission patient went into RVR A. fib that was resistant to her typical home regimen of Lopressor 100 mg p.o. twice daily and Norpace of 200 mg p.o. twice daily as well as receiving a digoxin load and up to 20 mg of IV Lopressor. On 01/24/2022 patient received synchronized DC cardioversion due to her change in respiratory status and symptomatic RVR A. fib with labile blood pressures. Patient also had presented with an acute kidney injury superimposed on chronic kidney disease stage III for which her creatinine on presentation was 1.9. A renal work-up was instituted and she was found to have a mixed etiology of prerenal azotemia with possible intravascular depletion as she appeared to be hypovolemic and dehydrated however she was also in urinary retention as renal ultrasound showed retained urine about 455 cc for which she received a Iyer catheterization. She was initially placed on Flomax however due to her labile blood pressures and hypotension this was discontinued. Her cortisol, uric acid were unremarkable ho wever she had a normal urine osmolality and a low serum osmolality to indicate possible SIADH versus hypervolemic hyponatremia. Patient had remained on Eliquis before and after patient received DC cardioversion and previously echocardiogram on this admission did show an EF of 41% with a moderate right ventricular enlargement with moderate increase in left atrial volume index and RVSP of 50 mmHg. On 01/20-01/2026 patient remained in sinus rhythm but with bradycardic events and EKG showing prolonged MO with no high-grade AV blocks. Patient did have an elevated TSH with normal free T4 to suggest possible subclinical hypothyroidism however no Synthroid was administered given possible euthyroid sick syndrome. Patient had transaminitis secondary to congestive hepatopathy in the setting of her RVR A. fib for which her LFTs were up trended however began to downtrend with an AST of 64 and an ALT of 127 upon discharge. Her Yohannes bilirubin had initially gone up to 1.1 and now at 0.8. Patient remains on a statin and will continue due to no indication to discontinue as 3 times the upper limit of normal is acceptable. Patient did experience a episode of accelerated hypertension with systolics in the 170s and diastolics above 110 for which she had flash pulmonary edema in the setting of her malignant hypertension confirmed on CXR and was placed on nitroglycerin drip. She was receiving IV Lasix during the interim and was transitioned over to isosorbide. Low suspicion for PE given that she was already on aspirin and Eliquis. Midodrine provided to offset patient's labile blood pressures. Leukocytosis was also observed without underlying infection other than abnormal findings on ur inalysis to suggest asymptomatic bacteriuria with 100,000 polymicrobial species to suggest contamination, procalcitonin was unremarkable and therefore IV antibiotics were deferred. Patient had stress-induced hyperglycemia for which A1c was unremarkable. Upon discharge patient's sodium levels were 135, creatinine 1.0, potassium 4.1, percent iron was 12, LFTs had down trended. Patient's blood pressure medications of Lopressor were adjusted to 25 mg p.o. twice daily with holding parameters, she will be continued on Lasix given her reduced EF HF combined with diastolic dysfunction. Patient will be placed on fluid restriction of no more than 1 L free water per 24 hours with daily weight monitoring and low-sodium diet. Patient will also be prescribed midodrine as needed to offset hypotensive while receiving reduced doses of Lopressor at home. She is to continue her home medications until further notice by her PCP or marriage counselor minister. She is instructed to return to Dr. Chisholm on whether she would be a candidate for radiofrequency catheter ablation if recurrent recalcitrant A. fib/atypical atrial flutter were to occur. In addition, if she begins to bleed she may be also a candidate for watchman's device. - ALLERGIES Allergies/Adverse Reactions: Allergies Allergy/AdvReac Type Severity Reaction Status Date / Time No Known Drug Allergies Allergy Verified 01/23/22 09:37 - MEDICATIONS Home Medications: Ambulatory Orders Medication Instructions Recorded Confirmed Disopyramide Phosphate [Norpace Cr] 200 mg PO BID 07/16/13 01/23/22 Metoprolol Tartrate 100 mg PO BID 07/16/13 01/23/22 Pregabalin [Lyrica] 100 mg PO HS 07/16/13 01/23/22 Apixaban [Eliquis] 5 mg ORAL BID 06/11/21 01/23/22 Atorvastatin Calcium [Lipitor] 80 mg PO HS 06/11/21 01/23/22 Methadone [Methadone Hcl] 5 mg PO DAILY 06/11/21 01/23/22 Sumatriptan Succinate [Imitrex] 100 mg PO DAILY PRN 06/11/21 01/23/22 allopurinoL [Zyloprim] 100 mg PO DAILY 06/11/21 01/23/22 Methadone [Methadone Hcl] 10 mg PO QPM 01/24/22 01/24/22 - PHYSICAL EXAM AT DISCHARGE General Appearance: positive: No acute distress, Alert Eyes Bilateral: positive: Normal inspection, PERRL, EOMI ENT: positive: ENT inspection nml, Pharynx nml, No signs of dehydration Neck: positive: Nml inspection, Thyroid nml, No JVD, Trachea midline Respiratory: positive: Chest non-tender, No respiratory distress, Breath sounds nml Cardiovascular: positive: Regular rate & rhythm, No murmur, No gallop, Bradycardia Peripheral Pulses: positive: 2+ Abdomen: positive: Non-tender, No organomegaly, Nml bowel sounds, No distention. negative: Tenderness Back: positive: Nml inspection Skin: positive: Color nml, No rash Extremities: positive: Non-tender, Full ROM, Nml appearance Neurologic/Psychiatric: positive: Oriented x3, CN's nml (2-12) - LABS Result Diagrams: 01/27/22 05:05 01/27/22 05:05 - DIAGNOSTIC IMAGING Diagnostic Imaging Results: Final report reviewed - FOLLOW UP Follow Up: Follow-up with PCP in 1 to 2 weeks. Would encourage to follow-up with primary marriage counselor minister Dr. Pearce to reevaluate the need for possible radiofrequency catheter ablation to her recalcitrant A. fib/atypical atrial flutter. - TIME SPENT Time Spent in Discharge (Minutes): 40
[2022-01-27] MEDS ORDERED: MAGNESIUM SULFATE 2 GRAM 2 GM/50 ML BAG IV ONE (08:00)
[2022-01-27] MEDS: METHADONE 5 MG TABLET PO SCH ×2 (08:18→19:57)
[2022-01-27] MEDS: PANTOPRAZOLE 40 MG TABLET PO SCH (08:18)
[2022-01-27] MEDS: APIXABAN 2.5 MG TABLET PO SCH (08:18)
[2022-01-27] MEDS: METOPROLOL TARTRATE 25 MG TABLET PO SCH ×2 (08:18→19:58)
[2022-01-27] MEDS: SENNA 8.6 MG TABLET PO SCH (08:18)
[2022-01-27] MEDS: MAGNESIUM OXIDE 400 MG TABLET PO SCH ×3 (08:19→16:35)
[2022-01-27] MEDS: DOCUSATE SODIUM 250 MG CAPSULE PO SCH (08:19)
[2022-01-27] MEDS: polyethylene glycoL 3350 17 GM PACKET PO SCH (08:20)
[2022-01-27] MEDS ORDERED: ISOSORBIDE MONONITRATE ER 30 MG TABLET PO SCH (09:00)
[2022-01-27 09:08] LABS: HBsAG SCREEN Negative (Negative); HCV AB <0.1 s/co ratio (0.0-0.9); HEPATITIS B CORE IGM AB Negative (Negative)
[2022-01-27] MEDS: MIDODRINE 2.5 MG TABLET PO PRN (09:43)
--- NOTE | 2022-01-27 10:35 | PROVIDER PROGRESS NOTE ---
Progress Note HPI:This is a pleasant 81-year-old female with a past medical history significant for diastolic dysfunction grade 2, CKD-3, atherosclerosis of the aorta, cardiomegaly, chronic atrial fibrillation on Eliquis, hypertension, hyperlipidemia, who follows Dr. Chisholm as her primary monkey keeper who presents to [facility] emergency department with several day history of fatigue, orthopnea, dyspnea and lightheadedness. Patient also states that she has intermittent palpitations for which patient was seen by cardiology about a week ago with instructions to resume her metoprolol 100 mg and to hold it down to 50 mg if her heart rate was less than 70 bpm. She was seen approximately 10 days ago in the ER feeling with palpitations and her metoprolol was increased from 50 to 75 mg. Her EKG at that time showed normal sinus rhythm and her labs were essentially normal. On this visitation patient was found to have a sodium of 122 with a potassium of 6.0 and a repeat of 6.4 along with creatinine of 1.9 for which her baseline creatinine ranges between 1.0-1.5. In addition her BNP was elevated at thousand 342, AST of 54, bicarb of 23 with chloride of 88, BUN of 27, glucose of 117. TSH elevated at 7.30, CXR showed trace right-sided pleural effusion and EKG showed baseline LBBB. Patient denied chest pain however felt a chest comfort with associated orthopnea and dyspnea that she relates as her symptomatology. Her respiratory rate was 18-30 breaths/min, urine output was decreased, 96% O2 saturation on room air, and her systolic blood pressures ranged from 120s to 130s with heart rate controlled at 60s to 80s. Patient denied fevers, nausea, emesis, visual disturbances, GI/ symptoms, flank pain, maculopapular rashes or joint tenderness. Patient is not on diuretic and is on methadone and Lyrica along with Norpace and metoprolol and atorvastatin and takes Imitrex as well as allopurinol. Hospitalist service was requested for further evaluation and management treatment. Patient was seen at bedside with hypotension with systolics ranging in the 70s to 80s and was in RVR A. fib to the 130s. Her sodium corrected at 135 (129) cre atinine improved to 1.0 (1.1) potassium 4.1 patient was found to have an iron saturation of 12. Patient was deemed to have a mixed etiology of her hyponatremia (i.e. SIADH with hyper bulimic hyponatremia secondary to diastolic dysfunction). Patient is on 92% O2 saturation and mildly tachypneic, afebrile, and RVR A. fib. She was given IV Lasix in the morning. EKG has confirmed RVR A. fib 106 bpm with a baseline left bundle branch block. Patient has improved LFTs with no hyperbilirubinemia. She denies fevers, nausea, emesis, chest pain, GI or symptoms, MP rash or joint tenderness. Patient has improved sleeping and receiving her methadone as scheduled. O/E: VSS. Patient is cooperative, pleasant, ill-appearing, somnolent, in no acute respiratory distress. HEENT: PERRLA/EOMI BL. MMM. NCAT Neck: No JVD, thyromegaly, trachea midline, no LAD and bilaterally CV/lungs: Irregularly irregular, tachycardia,, S1-S2 within normal limits, no gallops, clicks or rubs. Improved aeration to bilateral lung aguilar, no rhonchi, wheezing. Abdomen: Soft, nontender, nondistended, plus bowel sounds all quadrants, no HSM /rectal: Iyer catheter in place with yellow urine. Extremities/skin: Bilateral lower extremity varicosities with trace edema/bipedal. 2+ pulses dorsalis pedis. Neuro: Grossly intact. Labs Reviewed Imaging studies: Reviewed Assessment/plan: (1) Electrolyte disturbance( Hyponatremia, hyperkalemia, hypomagnesemia) Conclusion/Plan: Patient's sodium was at 122 on admission for which prior sodium level was 130 on 01/13 and has been as low as 133 in the years of 2015 in 2018. Urine sodium of less than 12 and postobstructive uropathy with urinary retention appears to have a mixed etiology for her ELBERT. Had been on hydrochlorothiazide but had discontinued approximately 1 week prior to admission. States that she drinks about 1.5 L in a 24. Checking her serum and urine osmolality is pending. Etiology of hyper kalemia other than her ELBERT and underlying arrhythmia with diastolic dysfunction without patient being on KCl supplementation or Aldactone or even diuretics for that matter. Potassium has been corrected with Kayexalate with improvements to her potassium and no evidence of hyperacute T waves on EKG. Patient receiving magnesium sulfate with electrolyte repletion protocol for hypomagnesemia. She is also hypochloremic as well and will calculate sodium correction no more than 0.5 mEq/L/h to avoid ODS.Patient's sodium levels have improved but potassium levels are now normal, ionized calcium to correct, correct magnesium and other electrolyte deficiencies. Sodium bicarbonate uptitrated to 650 mg p.o. 3 times daily now. Defer off sodium chloride given her fluid overload status. Will be on IV Lasix given due to her pulmonary edema. Will replace calcium deficiencies with calcium gluconate. Replacing magnesium with electrolyte protocol as well. 01/27: Her sodium has improved to 135, potassium of 4.1 and off of sodium bicarbonate. Mixed etiology of SIADH given her low serum osmolality and less than 12 urine sodium plus hypervolemic hyponatremia in the setting of her rEF HF w/ diastolic grade 2 dysfunction. Continue to monitor and correct as needed. (2) Acute kidney injury superimposed on CKD-3---Improved Conclusion/Plan: Patient with a creatinine of 1.9 upon admission with baseline ranging between 1.0 and 1.5 with a history of chronic kidney disease stage III. Patient has underlying hypertension. Unclear if patient had a hypoperfusion in the setting of taking high doses of Lopressor and Norpace and has been off hydrochlorothiazide for approximately more than a week which are the most common offending agents at this time to be identified. Renal work-up was initiated and retroperitoneal ultrasound showed urinary retention without hydronephrosis, stones or other pathology. We will place a Iyer catheter for monitoring of strict I's and O's. BUN and creatinine ratio and urine protein does not appear to be abnormal. Uric acid, cortisol levels were unremarkable. TSH was elevated but free T4 was normal. Serum and urine osmolality to follow. It appears that patient may have a mixed etiology of prerenal azotemia as urine sodium was less than 12 and with urinary retention now on a Iyer catheter with improved renal function. IV fluids are now held given her fluid overload status. IV Lasix provided as well as IV nitro now off, to avoid fluid overload given her diastolic dysfunction CHF, avoid nephrotoxic agents, correct underlying electrolyte disturbances. Creatinine improved to 1.0. (3) RVR atrial fibrillation---RECURRENT Conclusion/Plan: Patient was seen by Dr. Chisholm nurse practitioner on for her atrial fibrillation and atypical atrial flutter for which patient was scheduled for cardioversion at [facility] in [place] and was instructed on taking her Eliquis and increasing her Lopressor 200 mg p.o. twice daily and never his heart rate less than 70 to go back on metoprolol 50 mg twice daily due to her conversion to sinus rhythm. She had also been on Norpace during this time. Patient's EKG shows this rhythm at 66 bpm with atrial premature complexes and couplets with a short UT interval and a left bundle branch block. Her troponin initially normal but slight bump post DC cardioversion on 01/24. Has remained on Eliquis and aspirin since admission. Her home BP meds were initially held given her slow rate atrial fibrillation however she did develop RVR A. fib that went up into the 150s which she responded well to DC cardioversion. Echocardiogram did show an EF of 41% with an moderate right ventricular enlargement with moderate increase in left atrial volume index and RVSP of 50 mmHg. She did see cardiology recently / [facility] cardiology service at [phone]. 01/24: Despite receiving up to 20 mg of IV Lopressor and oral Lopressor up to 100 mg along with Norpace up to 100 mg as well as digoxin 250 mcg of the loading dose she continued to display RVR A. fib in the 120s-140s and was in sinus tachycardia prior to patient receiving DC cardioversion under conscious sedation on 01/24. Patient was somnolent after propofol and sinus bradycardia without AV blocks noted post DC cardioversion. 01/25-/01/26: Patient has remained in sinus rhythm but with bradycardia and EKG showing prolonged UT with no AV blocks. 01/27: Patient was found to be in RVR A. fib at 130 bpm confirmed on EKG 116 bpm with a baseline LBBB. Patient will be given midodrine to offset her hypovolemia given her fluid overload and underlying diastolic dysfunction CHF with a reduced EF of 41%. We will give digoxin to 50 mg IV x1. Nisa may have sick sinus s yndrome and could warrant pacemaker placement vs. RF catheter ablation for recalcitrant RVR afib not responsive to medical mgmt. We will call Dr. Chisholm at [facility] cardiology for further direction. (4) Sinus bradycardia---resolved Had DC cardioversion under conscious sedation on 01/24 and is now in sinus bradycardia with EKG showing sinus rhythm at 56 bpm although she does drop into the upper 40s on telemetry has a prolonged UT interval and baseline left bundle branch block. Patient with mildly bumped troponins in the setting of recent DC cardioversion which is likely expected however treating for underlying fluid overload. Would avoid Lopressor and Norpace as well as other sedate of agents like temazepam and will keep off of Lyrica given her respiratory status. Elevated TSH w/ normal free T4 to suggest possible subclinical hypothyroidism. Continue to monitor on telemetry. (5) Transaminitis/congestive hepatopathy Patient's LFTs have up trended in the setting of her congestive hepatopathy likely as a result of her RVR A. fib/atypical atrial flutter. She was DC cardioverted on 01/24 and continues with uptrending and LFTs.Patient denies abdominal pain, pruritus although T bilirubin has normalized from 2.1 may consider abdominal ultrasound if worsening. Patient is on a atorvastatin however will not discontinue as she is still below 3 times upper normal limit of LFTs. Avoid hepatotoxic agents, she is on a statin currently. Not a candidate for amiodarone at this time. Viral serologies to follow. 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 Eduardo soto's primary monkey keeper is Dr. Chisholm and was previously instructed to take Lopressor 100 mg p.o. twice daily and closely monitor her heart rate but had reduced this down to 50 mg and was again instructed to increase to 75 mg recently due to patient experiencing weakness and fatigue for which she was seen 10 days ago days ago at the emergency department at the time with an EKG unremarkable and labs unremarkable. Her BNP is elevated at thousand 342 and her prior 2D echo in 03/28 2019 shows a grade 2 diastolic dysfunction EF of 70-75%. Patient will be on IV fluids and will attempt to avoid fluid overload given her diastolic dysfunction however in the setting of decreased urinary output and hyponatremia will need to monitor carefully. Daily weights, strict I's and O's. Holding off of diuretics for now given patient's hyponatremia and ELBERT. Does have underlying history of diastolic dysfunction grade 2 and current Echocardiogram shows an EF of 41% with a global longitudinal peak strain averaging -12, moderate concentric left ventricular hypertrophy, paradoxical septal motion consistent with left bundle branch block, moderate right ventricular enlargement with right ventricular systolic function mildly impaired, moderate increase in the left atrial volume index of 45 mL/M squared, severe right atrial enlargement. There is mild to moderate tricuspid regurgitation with moderately abnormal right heart pressures RVSP at 50 mmHg. 01/25: A rapid response was called during a.m. rounds due to patient's tachypnea with shortness of breath, CXR shows fluid overload indicative of pulmonary edema in the setting of her hypertensive excursion with SBP's in the 170s and DBPs above 100s which IV nitroglycerin was given with good results as well as IV Lasix. Would continue with ongoing IV Lasix as long as her BP supports this. This may influence patient's electrolyte disturbances. 01/26: Patient with somnolence at bedside however does not appear to have unstable vital signs in terms of her blood pressures although labile she is receiving IV Lasix with negative net balance of approximately 9 L since admission, off of IV nitroglycerin drip and receiving isosorbide during the day and Lopressor being given at 50 mg p.o. twice daily with Norpace being held. 01/27: Patient is not hypoxemic and is at 92% O2 sats on room air, mildly tachypneic as it pertains to her recurrent RVR A. fib. (7) Accelerated HTN w/ Transient hypotension---stable Patient was placed on IV nitroglycerin due to hypertensive excursion with likely flash pulmonary edema as it pertains to her increased demand and afterload. Her systolic pressures had weaned down to 80s and will be placed on midodrine as needed and off the IV nitroglycerin for now. She had received IV Lasix in the a.m. and hold lopressor and isosorbide 30 mg p.o. daily given her low bp's. Although PE is on differential she has been on ASA and eliquis since admission and unlikely as a physiological response to BP agents may explain this drop in BP's. Midodrine prn. (8) Leukocytosis---Resolved Conclusion/Plan: Unclear of source of infection although she has abnormal UA and may have a UTI given her urinary retention. She lacks fever, flank pain or or other s/s of infection. UCx pending. (9) General weakness Conclusion/Plan: Likely as it pertains to her electrolyte disturbance. Correct underlying medical conditions. PT/OT have been unable to work with patient due to her somnolence although I suspect that she has mobility deficits and may require SNF placement. (10) Acute urinary retention---resolved Conclusion/Plan: Renal US showed 450 cc of retained urine. Iyer catheter with no further obstruction noted, Placed on Flomax initially however due to BP concerns discontinued. Continue to monitor UO while on IVF's. She has an abnormal UA but w/o evidence of hydro, stones or s/s of UTI. Will have Iyer catheter removed w/ voiding trial and bladder scan as needed. (11) Abnormal finding on urinalysis Conclusion/Plan: Asymptomatic bacteriuria w/o s/s of infection but does have a leukocytosis and no fever. Urine culture shows more than 100,000 polymicrobial contamination likely. Defer off antibiotics for now.Patient does have an indwelling Iyer catheter with good urine output. (12) Hyperglycemia---resolved Likely stress-induced w/ Hgb A1c wnl.
[2022-01-27] MEDS: DIGOXIN 500 MCG/2 ML AMP IVP PRN ×2 (14:31→23:48)
[2022-01-27] MEDS: ATORVASTATIN 40 MG TABLET PO SCH (19:57)
[2022-01-27] MEDS: PREGABALIN 100 MG CAPSULE PO SCH (19:57)
[2022-01-27] MEDS: APIXABAN 5 MG TABLET PO SCH (19:57)
[2022-01-27] MEDS: DISOPYRAMIDE 100 MG PO SCH (19:58)
[2022-01-27] MEDS: BUTALB/ACETAM/CAFF 50/325/40MG TABLET PO PRN (22:53)
[2022-01-27] MEDS: SUMAtriptan 25 MG TABLET PO PRN (22:57)
[2022-01-28 06:11] LABS: BASOPHILS % (AUTO) 0.2 %; EOSINOPHILS # (AUTO) 0.2 10^3/uL (0.0-0.7); EOSINOPHILS % (AUTO) 2.8 %; HCT - HEMATOCRIT 37.4 % (37.0-47.0); HGB - HEMOGLOBIN 12.2 g/dL (12.0-16.0); LYMPHOCYTES # (AUTO) 1.4 10^3/uL (1.5-3.5); LYMPHOCYTES % (AUTO) 17.3 %; MEAN CORPUSCULAR HGB CONC 32.6 g/dL (32.0-36.0); MEAN CORPUSCULAR VOLUME 95.2 fL (81.0-99.0); MEAN PLATELET VOLUME 12.8 fL (7.9-10.8); MONOCYTES % (AUTO) 12.1 %; NEUTROPHILS # (AUTO) 5.6 10^3/uL (1.5-6.6); NEUTROPHILS % (AUTO) 67.1 %; PLT - PLATELET COUNT 159 10^3/uL (130-450); RED BLOOD COUNT 3.93 10^6/uL (4.20-5.40); WHITE BLOOD COUNT 8.3 x10^3/uL (4.8-10.8)
[2022-01-28 06:25] LABS: ALBUMIN 3.4 g/dL (3.2-5.5); ALBUMIN/GLOBULIN RATIO 1.3 (1.0-2.2); CALCIUM 9.3 mg/dL (8.5-10.3); CREATININE 0.9 mg/dL (0.4-1.0); POTASSIUM 3.8 mmol/L (3.5-5.0); TOTAL PROTEIN 6.1 g/dL (6.7-8.2)
[2022-01-28] MEDS: METOPROLOL TARTRATE 25 MG TABLET PO SCH ×2 (08:05→20:12)
[2022-01-28] MEDS: PANTOPRAZOLE 40 MG TABLET PO SCH (08:05)
[2022-01-28] MEDS: DOCUSATE SODIUM 250 MG CAPSULE PO SCH (08:05)
[2022-01-28] MEDS: APIXABAN 5 MG TABLET PO SCH ×2 (08:05→20:11)
[2022-01-28] MEDS: SENNA 8.6 MG TABLET PO SCH (08:06)
[2022-01-28] MEDS: METHADONE 5 MG TABLET PO SCH ×2 (08:06→20:11)
[2022-01-28] MEDS: allopurinoL 100 MG TABLET PO SCH (08:06)
[2022-01-28] MEDS: FUROSEMIDE 20 MG TABLET PO SCH (08:06)
[2022-01-28] MEDS: MAGNESIUM OXIDE 400 MG TABLET PO SCH ×3 (08:06→17:38)
[2022-01-28] MEDS: polyethylene glycoL 3350 17 GM PACKET PO SCH (08:08)
[2022-01-28] MEDS: SODIUM CHLORIDE FLUSH 0.9% 10 ML SYRINGE IVP SCH ×2 (08:09→17:39)
[2022-01-28] MEDS: DISOPYRAMIDE 100 MG PO SCH ×2 (08:22→20:12)
[2022-01-28] MEDS ORDERED: ISOSORBIDE MONONITRATE ER 30 MG TABLET PO SCH (09:00)
[2022-01-28] MEDS ORDERED: FUROSEMIDE 20 MG/2 ML VIAL IVP SCH (09:00)
[2022-01-28] MEDS ORDERED: DIGOXIN 500 MCG/2 ML AMP IVP SCH (12:00)
--- NOTE | 2022-01-28 16:34 | PROVIDER PROGRESS NOTE ---
Assessment/Plan - Problem List (1) Atrial fibrillation with RVR Assessment/Plan: Patient underwent cardioversion 2 days ago which was successful. However she converted back from sinus rhythm to A. fib with RVR yesterday's 01/27/2022.Heart rate this morning was between 70 and 100. However earlier in the morning with activity patient's heart rate would spike into the 130s to 140s. As a result the patient is being kept for treatment for another day. On norpace 100mg po bid Metoprolol tartrate 25 mg p.o. twice daily Patient was given digoxin 250 mcg IV x1 last night. Will administer digoxin 125 mcg IV every 12x2 doses today, then check digoxin level in the morning. On Eliquis 5 mg p.o. twice daily. (2) Electrolyte disturbance Assessment/Plan: Improved/resolved. Sodium is 136, potassium 3.8, Magnesium 2.3 (3) Acute kidney injury superimposed on CKD Assessment/Plan: Creatinine was 1.1 with BUN 21 at time of admission. Creatinine today 0.9, BUN 14, estimated GFR 60. (4) Acute on chronic diastolic (congestive) heart failure Assessment/Plan: Her BNP was elevated 1342. Improved to 845. Her prior 2D echo in 03/28 2019 shows a grade 2 diastolic dysfunction EF of 70-75%. Current Echocardiogram shows an EF of 41% with a global longitudinal peak strain averaging -12, moderate concentric left ventricular hypertrophy, paradoxical septal motion consistent with left bundle branch block, moderate right ventricular enlargement with right ventricular systolic function mildly impaire d, moderate increase in the left atrial volume index of 45 mL/M squared, severe right atrial enlargement. There is mild to moderate tricuspid regurgitation with moderately abnormal right heart pressures RVSP at 50 mmHg. Metroprolol tartrate 25 mg p.o. twice daily. Lasix 20 mg p.o. daily. Imdur 30 mg p.o. daily. (5) Hyperlipidemia Assessment/Plan: Atorvastatin 80 mg p.o. every afternoon. (6) Hx of gout Assessment/Plan: Allopurinol 100 mg p.o. daily. - Current Meds Current Meds: Current Medications Generic Name Dose Route Start Last Admin Trade Name Freq PRN Reason Stop Dose Admin Acetaminophen 650 mg 01/24/22 02:28 01/24/22 02:39 Acetaminophen 325 Mg Tablet PO 650 mg Q4HR PRN Administration Pain or Fever > 38C (100.4F) Acetaminophen/Butalbital/Caffeine 1 tab 01/24/22 08:06 01/24/22 18:42 Butalb/Acetam/Caff 50/325/40mg Tablet PO 1 tab Q4HR PRN Administration HEADACHE Allopurinol 100 mg 01/28/22 09:00 01/28/22 08:06 Allopurinol 100 Mg Tablet PO 100 mg DAILY CARMINE Administration Apixaban 5 mg 01/27/22 21:00 01/28/22 08:05 Apixaban 5 Mg Tablet PO 5 mg BID CARMINE Administration Atorvastatin Calcium 80 mg 01/23/22 21:00 01/27/22 19:57 Atorvastatin 40 Mg Tablet PO 80 mg QPM CARMINE Administration Digoxin 125 mcg 01/28/22 12:00 01/28/22 11:06 Digoxin 500 Mcg/2 Ml Amp IVP 01/29/22 00:01 125 mcg Q12H CARMINE Administration Docusate Sodium 250 - 500 mg 01/24/22 11:00 01/28/22 08:05 Docusate Sodium 250 Mg Capsule PO 250 mg DAILY CARMINE Administration Furosemide 20 mg 01/28/22 09:00 01/28/22 08:06 Furosemide 20 Mg Tablet PO 20 mg DAILY CARMINE Administration Hydralazine HCl 10 mg 01/23/22 16:38 01/25/22 19:25 Hydralazine Inj 20 Mg/Ml Vial IVP 10 mg Q4H PRN Administration sbp>170 or DBP>100 Lorazepam 0.5 mg 01/25/22 19:34 01/25/22 20:32 Lorazepam 0.5 Mg Tablet PO 0.5 mg Q8H PRN Administration Anxiety Magnesium Oxide 600 mg 01/26/22 08:00 01/28/22 11:10 Magnesium Oxide 400 Mg Tablet PO 600 mg TIDWM CARMINE Administration Methadone HCl 5 mg 01/24/22 04:00 01/28/22 08:06 Methadone 5 Mg Tablet PO 5 mg DAILY CARMINE Administration Methadone HCl 10 mg 01/24/22 21:00 01/27/22 19:57 Methadone 5 Mg Tablet PO 10 mg QPM CARMINE Administration Metoprolol Tartrate 25 mg 01/26/22 21:00 01/28/22 08:05 Metoprolol Tartrate 25 Mg Tablet PO 25 mg BID CARMINE Administration Midodrine 10 mg 01/25/22 10:25 01/27/22 09:43 Midodrine 2.5 Mg Tablet PO 10 mg TID PRN Administration SBP<100 or DBP<55 Pantoprazole Sodium 40 mg 01/24/22 13:00 01/28/22 08:05 Pantoprazole 40 Mg Tablet PO 40 mg DAILY CARMINE Administration Disopyramide [ 2 each 01/27/22 21:00 01/28/22 08:22 Norpace] 100 Mg Caps PO 2 each BID CARMINE Administration Polyethylene Glycol 17 gm 01/24/22 11:00 01/28/22 08:08 Polyethylene Glycol 3350 17 Gm Packet PO 17 gm DAILY CARMINE Administration Pregabalin 100 mg 01/25/22 21:00 01/27/22 19:57 Pregabalin 100 Mg Capsule PO 100 mg HS CARMINE Administration Prochlorperazine Edisylate 10 mg 01/23/22 12:42 01/25/22 20:34 Prochlorperazine 10 Mg/2 Ml Vial IVP 10 mg Q6HR PRN Administration Nausea / Vomiting Senna 8.6 - 17.2 mg 01/24/22 11:00 01/28/22 08:06 Senna 8.6 Mg Tablet PO 8.6 mg DAILY CARMINE Administration Sodium Chloride 10 ml 01/23/22 17:00 01/28/22 08:09 Sodium Chloride Flush 0.9% 10 Ml Syringe IVP 10 ml 0100,0900,1700 CARMINE Administration Sumatriptan Succinate 100 mg 01/23/22 14:00 01/27/22 22:57 Sumatriptan 25 Mg Tablet PO 100 mg DAILY PRN Administration HEADACHE Temazepam 15 - 30 mg 01/25/22 19:35 01/25/22 21:52 Temazepam 15 Mg Capsule PO 30 mg QPM PRN Administration Insomnia - Lab Result Fish Bone Diagrams: 01/28/22 04:35 01/28/22 04:35 - Additional Planning My Orders: My Active Orders 01/28/22 12:00 Digoxin Inj [Lanoxin Inj] 125 mcg IVP Q12H 01/28/22 12:47 Telemetry- [RC] Q4HR 01/29/22 05:00 DIGOXIN [CHEM] DAILYLAB 01/30/22 05:00 DIGOXIN [CHEM] DAILYLAB Subjective - Subjective Patient Reports: Other (Patient was resting comfortably in bed. She denied chest pain, dyspnea, abdominal pain, nausea, vomiting, fever or chills. At rest her heart rate was between 70 and 100. However with activity in the morning heart rate was 130s to 140s.) Objective Vital Signs: Vital Signs - 24 hr 01/27/22 01/27/22 01/27/22 19:34 19:55 19:58 Temperature 37.0 C Heart Rate Heart Rate [ Brachial] Heart Rate [ 86 Monitoring electrodes] Respiratory 18 Rate Blood Pressure 136/95 H Blood Pressure 136/95 H [Left Brachial artery] Blood Pressure [Right Brachial artery] O2 Saturation 95 01/27/22 01/27/22 01/28/22 23:44 23:48 05:00 Temperature 36.4 C L 36.4 C L Heart Rate 131 H Heart Rate [ Brachial] Heart Rate [ 77 57 L Monitoring electrodes] Respiratory 18 16 Rate Blood Pressure Blood Pressure [Left Brachial artery] Blood Pressure 157/98 H 148/78 H [Right Brachial artery] O2 Saturation 98 96 01/28/22 01/28/22 01/28/22 07:32 08:05 09:25 Temperature 36.6 C Heart Rate Heart Rate [ Brachial] Heart Rate [ 88 76 Monitoring electrodes] Respiratory 18 Rate Blood Pressure 154/123 H Blood Pressure [Left Brachial artery] Blood Pressure 156/119 H 141/96 H [Right Brachial artery] O2 Saturation 96 01/28/22 01/28/22 01/28/22 11:05 11:06 11:21 Temperature Heart Rate 75 Heart Rate [ Brachial] Heart Rate [ 75 85 Monitoring electrodes] Respiratory Rate Blood Pressure Blood Pressure [Left Brachial artery] Blood Pressure 125/95 H 143/90 H [Right Brachial artery] O2 Saturation 01/28/22 01/28/22 14:33 15:32 Temperature 36.0 C L 36.5 C Heart Rate Heart Rate [ 70 84 Brachial] Heart Rate [ Monitoring electrodes] Respiratory 18 17 Rate Blood Pressure Blood Pressure [Left Brachial artery] Blood Pressure 116/69 121/88 H [Right Brachial artery] O2 Saturation 96 96 Oxygen O2 Source Room air I&O (Last 24 Hrs): Intake and Output Totals x24h 01/26/22 01/27/22 01/28/22 23:59 23:59 23:59 Intake Total 2944 960 1810 Output Total 7553 1628 2150 Balance -409 -668 -230 General: Alert, Oriented x3, No acute distress HEENT: PERRLA, EOMI Neck: Supple, No JVD Neuro: Alert, Oriented Times 3 Cardiovascular: Other (Iregularly irregular. Tachycardic.) Respiratory: Chest non-tender, No respiratory distress, Breath sounds nml Abdomen: Normal bowel sounds, Soft Extremities: No clubbing, No cyanosis, No edema Skin: No rashes, No breakdown, No significant lesion - Results Results: Laboratory Results WBC 8.3 x10^3/uL (4.8-10.8) 01/28/22 04:35 RBC 3.93 10^6/uL (4.20-5.40) L 01/28/22 04:35 Hgb 12.2 g/dL (12.0-16.0) 01/28/22 04:35 Hct 37.4 % (37.0-47.0) 01/28/22 04:35 MCV 95.2 fL (81.0-99.0) 01/28/22 04:35 MCH 31.0 pg (27.0-31.0) 01/28/22 04:35 MCHC 32.6 g/dL (32.0-36.0) 01/28/22 04:35 RDW 16.0 % (12.0-15.0) H 01/28/22 04:35 Plt Count 159 10^3/uL (130-450) 01/28/22 04:35 MPV 12.8 fL (7.9-10.8) H 01/28/22 04:35 Neut # (Auto) 5.6 10^3/uL (1.5-6.6) 01/28/22 04:35 Lymph # (Auto) 1.4 10^3/uL (1.5-3.5) L 01/28/22 04:35 [place] # (Auto) 1.0 10^3/uL (0.0-1.0) 01/28/22 04:35 Eos # (Auto) 0.2 10^3/uL (0.0-0.7) 01/28/22 04:35 Baso # (Auto) 0.0 10^3/uL (0.0-0.1) 01/28/22 04:35 Absolute Nucleated RBC 0.00 x10^3/uL 01/28/22 04:35 Nucleated RBC % 0.0 /100WBC 01/28/22 04:35 Manual Slide Review Indicated 01/23/22 09:57 WBC Morphology 2+ REACTIVE LYMPHS (NORMAL) 01/23/22 09:57 Bld Gas Analysis Time 0845 01/25/22 08:45 Sample Site RIGHT BRACHIAL 01/25/22 08:45 ABG pH 7.36 (7.35-7.45) 01/25/22 08:45 ABG pCO2 41 mmHg (34-45) 01/25/22 08:45 ABG pO2 85 mmHg (80-100) 01/25/22 08:45 ABG HCO3 22.1 mmol/L (22.0-26.0) 01/25/22 08:45 ABG Total CO2 23.4 MMOL/L (21.0-29.0) 01/25/22 08:45 ABG O2 Saturation 96 % (94-98) 01/25/22 08:45 ABG Base Excess -3.2 mmol/L (-2.0-3.0) L 01/25/22 08:45 Norberto Test POSITIVE 01/25/22 08:45 VBG pH 7.427 (7.31-7.41) H 01/26/22 04:23 Ionized Calcium 1.13 mmol/L (1.15-1.33) L 01/26/22 04:23 Respiration Rate 22 b/min 01/25/22 08:45 O2 Delivery Device OXYMASK 01/25/22 08:45 O2 Liters/Min 2.00 LPM 01/25/22 08:45 Sodium 136 mmol/L (135-145) 01/28/22 04:35 Potassium 3.8 mmol/L (3.5-5.0) 01/28/22 04:35 Chloride 94 mmol/L (101-111) L 01/28/22 04:35 Carbon Dioxide 34 mmol/L (21-32) H 01/28/22 04:35 Anion Gap 8.0 (6-13) 01/28/22 04:35 BUN 14 mg/dL (6-20) 01/28/22 04:35 Creatinine 0.9 mg/dL (0.4-1.0) 01/28/22 04:35 Estimated GFR (MDRD) 60 (>89) L 01/28/22 04:35 Glucose 90 mg/dL (70-100) 01/28/22 04:35 POC Whole Bld Glucose Cancelled 01/26/22 07:49 Estimat Average Glucose 111 mg/dL (70-100) H 01/25/22 11:18 Hemoglobin A1c % 5.5 % (4.27-6.07) 01/25/22 11:18 Serum Osmolality 271 mOsmol/kg (280-301) L 01/23/22 09:57 Uric Acid 6.7 mg/dL (2.6-7.2) 01/23/22 12:45 Calcium 9.3 mg/dL (8.5-10.3) 01/28/22 04:35 Phosphorus 2.1 mg/dL (2.5-4.6) L 01/26/22 04:23 Magnesium 2.3 mg/dL (1.7-2.8) 01/27/22 12:06 Iron 35 ug/dL (28-170) 01/26/22 04:23 TIBC 290 ug/dL (250-450) 01/26/22 04:23 % Saturation 12 % (20-50) L 01/26/22 04:23 Transferrin 207 mg/dL (192-382) 01/26/22 04:23 Total Bilirubin 1.0 mg/dL (0.2-1.0) 01/28/22 04:35 Direct Bilirubin 0.1 mg/dL (0.1-0.5) 01/26/22 04:44 AST 44 IU/L (10-42) H 01/28/22 04:35 ALT 108 IU/L (10-60) H 01/28/22 04:35 Alkaline Phosphatase 96 IU/L (42-121) 01/28/22 04:35 Total Creatine Kinase 55 IU/L (22-269) 01/23/22 12:45 Troponin I High Sens 17.9 ng/L (2.3-14.8) H* 01/25/22 20:46 B-Natriuretic Peptide 845 pg/mL (5-100) H 01/26/22 04:23 Total Protein 6.1 g/dL (6.7-8.2) L 01/28/22 04:35 Albumin 3.4 g/dL (3.2-5.5) 01/28/22 04:35 Globulin 2.7 g/dL (2.1-4.2) 01/28/22 04:35 Albumin/Globulin Ratio 1.3 (1.0-2.2) 01/28/22 04:35 Lipase 20 U/L (22-51) L 01/23/22 09:57 Vitamin B12 327 pg/mL (180-914) 01/26/22 04:23 Folate 18.01 ng/mL (5.90 - >24.8) 01/26/22 04:23 TSH 7.37 uIU/mL (0.34-5.60) H 01/23/22 09:57 Free T4 1.14 ng/dL (0.58-1.64) 01/23/22 12:45 Cortisol 49.2 ug/dL 01/23/22 12:45 Urine Color LIGHT YELLOW 01/23/22 13:25 Urine Clarity HAZY (CLEAR) 01/23/22 13:25 Urine pH 6.5 PH (5.0-7.5) 01/23/22 13:25 Ur Specific Moran 1.025 (1.002-1.030) 01/23/22 13:25 Urine Protein NEGATIVE mg/dL (NEGATIVE) 01/23/22 13:25 Urine Glucose (UA) NEGATIVE mg/dL (NEGATIVE) 01/23/22 13:25 Urine Ketones NEGATIVE mg/dL (NEGATIVE) 01/23/22 13:25 Urine Occult Blood NEGATIVE (NEGATIVE) 01/23/22 13:25 Urine Nitrite NEGATIVE (NEGATIVE) 01/23/22 13:25 Urine Bilirubin NEGATIVE (NEGATIVE) 01/23/22 13:25 Urine Urobilinogen 0.2 (NORMAL) E.U./dL (NORMAL) 01/23/22 13:25 Ur Leukocyte Esterase MODERATE (NEGATIVE) H 01/23/22 13:25 Urine RBC 0-5 /HPF (0-5) 01/23/22 13:25 Urine WBC 0-3 /HPF (0-5) 01/23/22 13:25 Ur Squamous Epith Cells FEW Squamous (<= Few) 01/23/22 13:25 Urine Bacteria Moderate /HPF (None Seen) H 01/23/22 13:25 Ur Microscopic Review INDICATED 01/23/22 13:25 Urine Culture Comments INDICATED 01/23/22 13:25 Urine Osmolality 350 mOsmol/kg (.) 01/23/22 09:57 U Random Total Protein 14 mg/dL 01/23/22 13:25 Urine Creatinine 106.9 mg/dL 01/23/22 13:25 Ur Total Protein Timed 13 mg/dL 01/23/22 13:25 Protein/Creatinin Ratio 0.1 (<=0.2) 01/23/22 13:25 Urine Sodium < 12.0 mmol/L 01/23/22 13:25 Urine Potassium 44.7 mmol/L 01/23/22 13:25 Nasal Adenovirus (PCR) NOT DETECTED 01/23/22 11:48 Nasal B. parapertussis DNA (PCR) NOT DETECTED 01/23/22 11:48 Nasal Coronavir 229E PCR NOT DETECTED 01/23/22 11:48 Nasal Coronavir HKU1 PCR NOT DETECTED 01/23/22 11:48 Nasal Coronavir NL63 PCR NOT DETECTED 01/23/22 11:48 Nasal Coronavir OC43 PCR NOT DETECTED 01/23/22 11:48 Nasal Enterovir/Rhinovir PCR NOT DETECTED 01/23/22 11:48 Nasal Influenza B PCR NOT DETECTED 01/23/22 11:48 Nasal Influenza A PCR NOT DETECTED 01/23/22 11:48 Nasal Parainfluen 1 PCR NOT DETECTED 01/23/22 11:48 Nasal Parainfluen 2 PCR NOT DETECTED 01/23/22 11:48 Nasal Parainfluen 3 PCR NOT DETECTED 01/23/22 11:48 Nasal Parainfluen 4 PCR NOT DETECTED 01/23/22 11:48 Nasal RSV (PCR) NOT DETECTED 01/23/22 11:48 Nasal Screen MRSA (PCR) NEGATIVE (NEGATIVE) 01/23/22 14:30 Nasal B.pertussis DNA PCR NOT DETECTED 01/23/22 11:48 Nasal C.pneumoniae (PCR) NOT DETECTED 01/23/22 11:48 Deonte Human Metapneumo PCR NOT DETECTED 01/23/22 11:48 Nasal M.pneumoniae (PCR) NOT DETECTED 01/23/22 11:48 Nasal SARS-CoV-2 (PCR) NOT DETECTED 01/23/22 11:48 Last Dose Date 01/24/22 01/25/22 10:29 Last Dose Time 15301/25/22 10:29 Digoxin 0.6 ng/mL 01/25/22 10:29 Hepatitis A IgM Ab Negative (Negative) 01/26/22 14:05 Hep Bs Antigen Negative (Negative) 01/26/22 14:05 Hep B Core IgM Ab Negative (Negative) 01/26/22 14:05 Hepatitis C Antibody <0.1 s/co ratio (0.0-0.9) 01/26/22 14:05 Hepatitis C Interp Comment (.) 01/26/22 14:05 - Procedures Procedures: Procedures COLONOSCOPY (03/13/14) OTHER ENDOSCOPY OF SM INTEST (03/13/14) ABX Reporting Has patient been on IV antibiotics over the past 48 hours?: No
[2022-01-28] MEDS: PREGABALIN 100 MG CAPSULE PO SCH (20:11)
[2022-01-28] MEDS: ATORVASTATIN 40 MG TABLET PO SCH (20:12)
[2022-01-28] MEDS ORDERED: METOPROLOL SUCCINATE 50 MG TABLET PO SCH (21:00)
[2022-01-28] MEDS ORDERED: DIGOXIN 500 MCG/2 ML AMP IVP STA (23:55)
[2022-01-29] MEDS: SODIUM CHLORIDE FLUSH 0.9% 10 ML SYRINGE IVP SCH ×2 (04:47→08:55)
[2022-01-29 06:24] LABS: BUN - BLOOD UREA NITROGEN 16 mg/dL (6-20); CALCIUM 9.8 mg/dL (8.5-10.3); CARBON DIOXIDE - CO2 33 mmol/L (21-32); CHLORIDE 95 mmol/L (101-111); CREATININE 0.9 mg/dL (0.4-1.0); GFR - MDRD 60 (>89); GLUCOSE 83 mg/dL (70-100); MAGNESIUM 1.8 mg/dL (1.7-2.8); POTASSIUM 4.2 mmol/L (3.5-5.0); SODIUM 139 mmol/L (135-145)
[2022-01-29] MEDS ORDERED: MAGNESIUM OXIDE 400 MG TABLET PO SCH (08:00)
[2022-01-29] MEDS: FUROSEMIDE 20 MG TABLET PO SCH (08:53)
[2022-01-29] MEDS: PANTOPRAZOLE 40 MG TABLET PO SCH (08:54)
[2022-01-29] MEDS: APIXABAN 5 MG TABLET PO SCH (08:54)
[2022-01-29] MEDS: allopurinoL 100 MG TABLET PO SCH (08:54)
[2022-01-29] MEDS: DOCUSATE SODIUM 250 MG CAPSULE PO SCH (08:54)
[2022-01-29] MEDS: METHADONE 5 MG TABLET PO SCH (08:55)
[2022-01-29] MEDS: SENNA 8.6 MG TABLET PO SCH (08:55)
[2022-01-29] MEDS: DISOPYRAMIDE 100 MG PO SCH (08:56)
[2022-01-29] MEDS: polyethylene glycoL 3350 17 GM PACKET PO SCH (08:56)
[2022-01-29] MEDS ORDERED: METOPROLOL SUCCINATE 50 MG TABLET PO SCH (09:00)
[2022-01-29] MEDS ORDERED: ISOSORBIDE MONONITRATE ER 30 MG TABLET PO SCH (09:00)
--- NOTE | 2022-01-29 13:30 | DISCHARGE SUMMARY ---
Discharge Summary Admit Date: 01/23/22 Discharge Date: 01/29/22 Discharging Provider: Srinivasa Clark Primary Care Provider: Darrin Salinas Condition at Discharge: Good Discharge Disposition: Home Health Service - DIAGNOSES Admission Diagnoses: Atrial fibrillation with RVR: Improved/ Rare controlled Electrolyte disturbance: Acute. Resolved Acute kidney injury superimposed on chronic kidney disease: Improved Acute on chronic diastolic heart failure Acute hyponatremia: Resolved Hypokalemia: Acute. Resolved Leukocytosis: Acute. Resolved General weakness; Home health PT/OT/ Home Health Aide Malignant hypertension: Resolved Acute urinary retention: Resolved Abnormal findings on urinalysis: Resolved - HPI History of Present Illness: This is a pleasant 81-year-old female with a past medical history significant for diastolic dysfunction grade 2, CKD-3, atherosclerosis of the aorta, cardiomegaly, chronic atrial fibrillation on Eliquis, hypertension, hyperlipidemia, who follows Dr. Chisholm as her primary registration officer who presents to [facility] emergency department with several day history of fatigue, orthopnea, dyspnea and lightheadedness. Patient also states that she has intermittent palpitations for which patient was seen by cardiology about a week ago with instructions to resume her metoprolol 100 mg and to hold it down to 50 mg if her heart rate was less than 70 bpm. She was seen approximately 10 days ago in the ER feeling with palpitations and her metoprolol was increased from 50 to 75 mg. Her EKG at that time showed normal sinus rhythm and her labs were essentially normal. On this visitation patient was found to have a sodium of 122 with a potassium of 6.0 and a repeat of 6.4 along with creatinine of 1.9 for which her baseline creatinine ranges between 1.0-1.5. In addition her BNP was elevated at thousand 342, AST of 54, bicarb of 23 with chloride of 88, BUN of 27, glucose of 117. TSH elevated at 7.30, CXR showed trace right-sided pleural effusion and EKG showed baseline LBBB. Patient denied chest pain however felt a chest comfort with associated orthopnea and dyspnea that she relates as her symptomatology. Her respiratory rate was 18-30 breaths/min, urine output was decreased, 96% O2 saturation on room air, and her systolic blood pressures ranged from 120s to 130s with heart rate controlled at 60s to 80s. Patient denied fevers, nausea, emesis, visual disturbances, GI/ symptoms, flank pain, maculopapular rashes or joint tenderness. Patient is not on diuretic and is on methadone and Lyrica along with Norpace and metoprolol and atorvastatin and takes Imitrex as well as allopurinol. Hospitalist service was requested for further evaluation and management treatment. - HOSPITAL COURSE Hospital Course: 81-year-old female who was admitted on 01/23/2022 with generalized weakness, fatigue, confusion and dyspnea Her sodium at presentation was 120 creatinine 1.2 estimated GFR 43 magnesium 1.6. Over the course of her hospital stay, Her electrolytes were corrected appropriately. By the day of discharge sodium was 136, potassium 3.8, magnesium 2.3, creatinine 0.9 estimated GFR 60 Patient had frequent episodes of atrial fibrillation with rapid ventricular rhythm with heart rate going up to 150. She is to be on metoprolol tartrate 50 mg twice daily. This was increased to 75 mg twice daily. However she had received instructions on increasing her metoprolol to as high as 100 mg twice daily. She underwent a cardioversion during her hospital stay which was successful however 24 hours later she converted back from sinus rhythm into atrial fibril lation with rapid ventricular rhythm. On the day before discharge her heart rate would intermittently increase to 130s to 140s with activity. She was given a full loading dose of digoxin. Digoxin blood level on the day of discharge was 2.0. On the day of discharge her metoprolol tartrate was discontinued and she was placed on metoprolol succinate 100 mg p.o. twice daily. This will be maintained upon discharge. She is on Norpace 200 mg p.o. twice daily. This was continued upon discharge. Eliquis 5 mg p.o. twice daily was also continued. The day of discharge heart rate was mainly between 60 and 80 with intermittent increase to 113 with activity. She worked with physical therapy and it was determined she was functioning well and could benefit from a walker. She was treated with Lasix 20 mg IV daily. 2D echocardiogram done on 01/23/2022 showed left ejection fraction of 41%. There was moderate concentric left ventricular hypertrophy. The left ventricle size is normal. No regional wall motion abnormalities were seen. Left ventricle is dyssynchronous. Paradoxical septal motion consistent with left bundle branch block.. There was no evidence of aortic stenosis or mitral stenosis. There was mild to moderate mitral regurgitation. There was no pericardial effusion. RVSP at rest was 50 mmHg. She was discharged in stable condition. She may follow-up with her registration officer Dr. Chisholm as needed. She may follow-up with her primary care physician as needed. - ALLERGIES Allergies/Adverse Reactions: Allergies Allergy/AdvReac Type Severity Reaction Status Date / Time No Known Drug Allergies Allergy Verified 01/23/22 09:37 - MEDICATIONS Home Medications: Ambulatory Orders Medication Instructions Recorded Confirmed Disopyramide Phosphate [Norpace Cr] 200 mg PO BID 07/16/13 01/23/22 Pregabalin [Lyrica] 100 mg PO HS 07/16/13 01/23/22 Apixaban [Eliquis] 5 mg ORAL BID 06/11/21 01/23/22 Atorvastatin Calcium [Lipitor] 80 mg PO HS 06/11/21 01/23/22 Methadone [Methadone Hcl] 5 mg PO DAILY 06/11/21 01/23/22 Sumatriptan Succinate [Imitrex] 100 mg PO DAILY PRN 06/11/21 01/23/22 allopurinoL [Zyloprim] 100 mg PO DAILY 06/11/21 01/23/22 Methadone [Methadone Hcl] 10 mg PO QPM 01/24/22 01/24/22 Metoprolol Succinate [Toprol Xl] 100 mg PO BID 30 Days #120 tablet 01/29/22 - PHYSICAL EXAM AT DISCHARGE General Appearance: positive: No acute distress, Alert Eyes Bilateral: positive: PERRL, EOMI ENT: positive: No signs of dehydration Neck: positive: No JVD, Trachea midline Respiratory: positive: Chest non-tender, No respiratory distress, Breath sounds nml. negative: Wheezes, Rales, Rhonchi Cardiovascular: positive: Irregularly irregular (rate controlled) Abdomen: positive: Non-tender, No organomegaly, Nml bowel sounds, No distention. negative: Guarding, Rebound Back: positive: Nml inspection Skin: positive: No rash, Warm, Dry Extremities: positive: Non-tender, Full ROM, Nml appearance, No pedal edema Neurologic/Psychiatric: positive: Oriented x3, Mood/affect nml - LABS Result Diagrams: 01/28/22 04:35 01/29/22 04:17 - TIME SPENT Time Spent in Discharge (Minutes): 20
--- NOTE | 2022-01-29 13:47 | Discharge Plan ---
Discharge Plan Problem Reviewed?: Yes Disposition: Home Health Service Condition: Good Prescriptions: Metoprolol Succinate [Toprol Xl] 100 mg PO BID 30 Days #120 tablet Diet: Cardiac Activity Restrictions: Activity as Tolerated Assistance Devices: Walker Health Concerns: 81-year-old female who was admitted on 01/23/2022 with generalized weakness, fatigue, confusion and dyspnea Her sodium at presentation was 120 creatinine 1.2 estimated GFR 43 magnesium 1.6. Over the course of her hospital stay, Her electrolytes were corrected appropriately. By the day of discharge sodium was 136, potassium 3.8, magnesium 2.3, creatinine 0.9 estimated GFR 60 Patient had frequent episodes of atrial fibrillation with rapid ventricular rhythm with heart rate going up to 150. She is to be on metoprolol tartrate 50 mg twice daily. This was increased to 75 mg twice daily. However she had received instructions on increasing her metoprolol to as high as 100 mg twice daily. She underwent a cardioversion during her hospital stay which was successful however 24 hours later she converted back from sinus rhythm into atrial fibrillation with rapid ventricular rhythm. On the day before discharge her heart rate would intermittently increase to 130s to 140s with activity. She was given a full loading dose of digoxin. Digoxin blood level on the day of discharge was 2.0. On the day of discharge her metoprolol tartrate was discontinued and she was placed on metoprolol succinate 100 mg p.o. twice daily. This will be maintained upon discharge. She is on Norpace 200 mg p.o. twice daily. This was continued upon discharge. Eliquis 5 mg p.o. twice daily was also continued. The day of discharge heart rate was mainly between 60 and 80 with intermittent increase to 113 with activity. She worked with physical therapy and it was determined she was functioning well and could benefit from a walker. She was treated with Lasix 20 mg IV daily. 2D echocardiogram done on 01/23/2022 showed left ejection fraction of 41%. There was moderate concentric left ventricular hypertrophy. The left ventricle size is normal. No regional wall motion abnormalities were seen. Left ventricle is dyssynchronous. Paradoxical septal motion consistent with left bundle branch block.. There was no evidence of aortic stenosis or mitral stenosis. There was mild to moderate mitral regurgitation. There was no pericardial effusion. RVSP at rest was 50 mmHg. She was discharged in stable condition. She may follow-up with her pasteuriser operator Dr. Chisholm as needed. She may follow-up with her primary care physician as needed. No Smoking: If you smoke, Please STOP! Call for help. Follow-up with: Darrin Salinas MD [Primary Care Provider] -
[2022-01-29 15:35] VITALS: BP 119/75
== END 2022-01-29 15:45 | disposition home health service (06) | DRG 308 ==
LOC: ED 09:20 → ICU 12:42 → MS2 01-26 10:47
PROVIDERS: ADMIT Family Medicine; ATTEND Internal Medicine
PROC: 5A2204Z Restoration of Cardiac Rhythm, Single (ICD-10-PCS; principal; 2022-01-24)
DX: N28.9 Disorder of kidney and ureter, unspecified (principal); I48.20 Chronic atrial fibrillation, unspecified; I50.33 Acute on chronic diastolic (congestive) heart failure; E87.1 Hypo-osmolality and hyponatremia; R06.02 Shortness of breath; I50.9 Heart failure, unspecified; N17.9 Acute kidney failure, unspecified; Z20.822 Contact with and (suspected) exposure to COVID-19; I13.0 Hypertensive heart and chronic kidney disease with heart failure and stage 1 through stage 4 chronic kidney disease, or unspecified chronic kidney disease; F11.23 Opioid dependence with withdrawal; J90 Pleural effusion, not elsewhere classified; I48.92 Unspecified atrial flutter; E87.5 Hyperkalemia; I12.9 Hypertensive chronic kidney disease with stage 1 through stage 4 chronic kidney disease, or unspecified chronic kidney disease; N18.30 Chronic kidney disease, stage 3 unspecified; D72.829 Elevated white blood cell count, unspecified; R33.9 Retention of urine, unspecified; R53.1 Weakness; R82.71 Bacteriuria; I70.0 Atherosclerosis of aorta; I44.7 Left bundle-branch block, unspecified; R51.9 Headache, unspecified; E83.42 Hypomagnesemia; T40.2X5A Adverse effect of other opioids, initial encounter; Y92.239 Unspecified place in hospital as the place of occurrence of the external cause; E78.5 Hyperlipidemia, unspecified; K21.9 Gastro-esophageal reflux disease without esophagitis; E87.8 Other disorders of electrolyte and fluid balance, not elsewhere classified; I42.1 Obstructive hypertrophic cardiomyopathy; R41.0 Disorientation, unspecified; R74.01 Elevation of levels of liver transaminase levels; R73.9 Hyperglycemia, unspecified; R06.82 Tachypnea, not elsewhere classified; R00.1 Bradycardia, unspecified; I95.89 Other hypotension; R40.0 Somnolence; R00.0 Tachycardia, unspecified; M10.9 Gout, unspecified; I83.893 Varicose veins of bilateral lower extremities with other complications; E66.9 Obesity, unspecified; Z79.01 Long term (current) use of anticoagulants; Z79.899 Other long term (current) drug therapy; Z68.32 Body mass index [BMI] 32.0-32.9, adult
CPT/HCPCS: 36415; 36600; 51798; 71045; 76770; 80048; 80053; 80069; 80076; 80162; 81001; 82272; 82330; 82533; 82550; 82570; 82607; 82746; 82803; 83036; 83540; 83690; 83735; 83880; 83930; 83935; 84132; 84133; 84156; 84295; 84300; 84439; 84443; 84466; 84484; 84550; 85025; 86705; 86709; 86803; 87086; 87150; 87340; 87633; 93005; 93306; 94640; 96365; 97112; 97116; 97162; 99284; 99285; A9270; J1815; J2060; J3490; J7040; 81003; 82274; 94770

== ENCOUNTER 2022-02-01 15:34 | Inpatient (IN) | payer MEDICARE ==
[~2022-02-01 15:34] MED LIST: EPINEPHrine ABBOJECT 1 MG/10 ML SYRINGE IVP ONE
[2022-02-01] MEDS ORDERED: EPINEPHrine 4 MG in DEXTROSE 5% 246 ML IV STA (15:40)
[2022-02-01] MEDS ORDERED: MAGNESIUM SULFATE 2 GRAM 2 GM/50 ML BAG IV ONE (15:44)
[2022-02-01] MEDS ORDERED: SODIUM CHLORIDE 0.9% 1,000 ML IV STA ×2 (15:44)
[2022-02-01] MEDS ORDERED: GLUCAGON 1 MG/ML VIAL ONE (16:13)
[2022-02-01 16:21] LABS: BASOPHILS # (AUTO) 0.1 10^3/uL (0.0-0.1); BASOPHILS % (AUTO) 0.6 %; EOSINOPHILS # (AUTO) 0.2 10^3/uL (0.0-0.7); EOSINOPHILS % (AUTO) 2.1 %; HCT - HEMATOCRIT 41.2 % (37.0-47.0); HGB - HEMOGLOBIN 12.8 g/dL (12.0-16.0); LYMPHOCYTES # (AUTO) 3.5 10^3/uL (1.5-3.5); LYMPHOCYTES % (AUTO) 36.2 %; MEAN CORPUSCULAR HEMOGLOBIN 30.7 pg (27.0-31.0); MEAN CORPUSCULAR HGB CONC 31.1 g/dL (32.0-36.0); MEAN CORPUSCULAR VOLUME 98.8 fL (81.0-99.0); MEAN PLATELET VOLUME 12.1 fL (7.9-10.8); MONOCYTES % (AUTO) 10.1 %; NEUTROPHILS # (AUTO) 4.7 10^3/uL (1.5-6.6); NEUTROPHILS % (AUTO) 49.6 %; PLT - PLATELET COUNT 176 10^3/uL (130-450); RED BLOOD COUNT 4.17 10^6/uL (4.20-5.40); WHITE BLOOD COUNT 9.5 x10^3/uL (4.8-10.8)
[2022-02-01 16:28] LABS: BILIRUBIN,URINE NEGATIVE (NEGATIVE); GLUCOSE, URINE (UA) NEGATIVE (NEGATIVE); KETONES,URINE (UA) NEGATIVE (NEGATIVE); LEUKOCYTE ESTERASE, URINE SMALL (NEGATIVE); NITRITE,URINE NEGATIVE (NEGATIVE); OCCULT BLOOD,URINE NEGATIVE (NEGATIVE); PROTEIN,URINE NEGATIVE (NEGATIVE); UROBILINOGEN,URINE 0.2 (NORMAL) E.U./dL (NORMAL)
[2022-02-01 16:28] LABS: INR 2.4 (0.8-1.2); PT - PROTHROMBIN TIME 26.3 secs (9.9-12.6)
[2022-02-01 16:29] LABS: CLARITY,URINE CLEAR (CLEAR)
[2022-02-01 16:35] LABS: ALBUMIN 3.7 g/dL (3.2-5.5); ALBUMIN/GLOBULIN RATIO 1.4 (1.0-2.2); BILIRUBIN,TOTAL 1.1 mg/dL (0.2-1.0); CALCIUM 9.6 mg/dL (8.5-10.3); CREATININE 1.5 mg/dL (0.4-1.0); MAGNESIUM 2.5 mg/dL (1.7-2.8); PARTIAL THROMBOPLASTIN TIME 32.3 secs (24.9-33.3); PHOSPHORUS 5.6 mg/dL (2.5-4.6); POTASSIUM 5.5 mmol/L (3.5-5.0); TOTAL PROTEIN 6.3 g/dL (6.7-8.2)
[2022-02-01 16:40] LABS: BACTERIA,URINE Many /HPF (None Seen); RBC,URINE 0-5 /HPF (0-5); SQUAMOUS EPITHELIAL CELL,UR FEW Squamous (<= Few)
[2022-02-01] MEDS ORDERED: DEXMEDETOMIDINE 400 MCG/100 ML 100 ML IV PRN ×2 (16:41→16:45)
--- NOTE | 2022-02-01 16:41 | ED Physician Documentation ---
History of Present Illness - Stated complaint Stated Complaint: LOW HR - Chief complaint Chief Complaint: Cardiac - History obtained from History obtained from: EMS - History of Present Illness Timing: Today Pain level max: 0 Pain level now: 0 - Additonal information Additional information: Patient is an 81-year-old female who presents to the emergency department with low heart rate and decreased responsiveness. History is from EMS. Patient is unable to give any history. Reportedly they were called for a potential methadone overdose, they found the patient with hypotension and bradycardia. History of atrial fibrillation. She is on metoprolol. EMS states that they gave Versed prior to placing an external pacemaker on the patient. They state that her blood pressure before the Versed was 80 over palp. Blood sugar reportedly normal. Patient then became less responsive on route. 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: Ectopic : None HEENT: Chronic vision loss Psych: None Musculoskeletal: Osteoarthritis, Gout Derm: None - Past Surgical History Past Surgical History: Yes General: Appendectomy Ortho: Spine surgery - Present Medications Home Medications: Ambulatory Orders Medication Instructions Recorded Confirmed Disopyramide Phosphate [Norpace Cr] 200 mg PO BID 07/16/13 01/23/22 Pregabalin [Lyrica] 100 mg PO HS 07/16/13 01/23/22 Apixaban [Eliquis] 5 mg ORAL BID 06/11/21 01/23/22 Atorvastatin Calcium [Lipitor] 80 mg PO HS 06/11/21 01/23/22 Methadone [Methadone Hcl] 5 mg PO DAILY 06/11/21 01/23/22 Sumatriptan Succinate [Imitrex] 100 mg PO DAILY PRN 06/11/21 01/23/22 allopurinoL [Zyloprim] 100 mg PO DAILY 06/11/21 01/23/22 Methadone [Methadone Hcl] 10 mg PO QPM 01/24/22 01/24/22 Metoprolol Succinate [Toprol Xl] 100 mg PO BID 30 Days #120 tablet 01/29/22 - Allergies Allergies/Adverse Reactions: Allergies Allergy/AdvReac Type Severity Reaction Status Date / Time No Known Drug Allergies Allergy Verified 01/23/22 09:37 - Social History Does the pt smoke?: No Smoking Status: Former smoker Does the pt drink ETOH?: Yes Does the pt have substance abuse?: No - Immunizations Immunizations are current?: Yes - POLST Patient has POLST: No PD ED PE NORMAL - Vitals Vital signs reviewed: Yes - General General: Other (Agonal respirations) - HEENT HEENT: Atraumatic, Other (Pupils are dilated) - Neck Neck: Supple, no meningeal sign - Cardiac Cardiac: Other (Irregular, bradycardic) - Respiratory Respiratory: Other (Agonal respirations) - Abdomen Abdomen: Soft, Non distended - Derm Derm: Other (Pale, cool) - Extremities Extremities: No deformity - Neuro Neuro: Other (Drowsy) Eye Opening: None Motor: Withdraws to Pain Verbal: Incomprehensible GCS Score: 7 Results - Vitals Vitals: Vital Signs - 24 hr 02/01/22 02/01/22 02/01/22 15:43 15:49 16:20 Heart Rate 50 L 61 Blood Pressure 172/150 H Oxygen O2 Source Room air - EKG (time done) 1543 Rate: Rate (enter#) (84) Rhythm: Sinus bradycardia [place]: Normal Intervals: 1st degree AVB, LBBB - Labs Labs: Laboratory Tests 02/01/22 02/01/22 02/01/22 14:15 16:15 16:15 WBC 9.5 RBC 4.17 L Hgb 12.8 Hct 41.2 MCV 98.8 MCH 30.7 MCHC 31.1 L RDW 16.0 H Plt Count 176 MPV 12.1 H Neut # (Auto) 4.7 Lymph # (Auto) 3.5 [place] # (Auto) 1.0 Eos # (Auto) 0.2 Baso # (Auto) 0.1 Absolute Nucleated RBC 0.00 Nucleated RBC % 0.0 PT 26.3 H INR 2.4 H APTT 32.3 Bld Gas Analysis Time Sample Site ABG pH ABG pCO2 ABG pO2 ABG HCO3 ABG Total CO2 ABG O2 Saturation ABG Base Excess Norberto Test Respiration Rate O2 Delivery Device Vent Mode FiO2 Tidal Volume PEEP Sodium 132 L Potassium 5.5 H Chloride 95 L Carbon Dioxide 23 Anion Gap 14.0 H BUN 34 H Creatinine 1.5 H Estimated GFR (MDRD) 33 L Glucose 212 H Lactic Acid Calcium 9.6 Phosphorus 5.6 H Magnesium 2.5 Total Bilirubin 1.1 H AST 38 ALT 52 Alkaline Phosphatase 82 Troponin I High Sens B-Natriuretic Peptide Total Protein 6.3 L Albumin 3.7 Globulin 2.6 Albumin/Globulin Ratio 1.4 Lipase 41 Urine Color Urine Clarity Urine pH Ur Specific [place] Urine Protein Urine Glucose (UA) Urine Ketones Urine Occult Blood Urine Nitrite Urine Bilirubin Urine Urobilinogen Ur Leukocyte Esterase Urine RBC Urine WBC Ur Squamous Epith Cells Urine Bacteria Ur Microscopic Review Urine Culture Comments Nasal Adenovirus (PCR) Nasal B. parapertussis DNA (PCR) Nasal Coronavir 229E PCR Nasal Coronavir HKU1 PCR Nasal Coronavir NL63 PCR Nasal Coronavir OC43 PCR Nasal Enterovir/Rhinovir PCR Nasal Influenza B PCR Nasal Influenza A PCR Nasal Parainfluen 1 PCR Nasal Parainfluen 2 PCR Nasal Parainfluen 3 PCR Nasal Parainfluen 4 PCR Nasal RSV (PCR) Nasal B.pertussis DNA PCR Nasal C.pneumoniae (PCR) Deonte Human Metapneumo PCR Nasal M.pneumoniae (PCR) Nasal SARS-CoV-2 (PCR) 02/01/22 02/01/22 02/01/22 16:15 16:15 16:20 WBC RBC Hgb Hct MCV MCH MCHC RDW Plt Count MPV Neut # (Auto) Lymph # (Auto) [place] # (Auto) Eos # (Auto) Baso # (Auto) Absolute Nucleated RBC Nucleated RBC % PT INR APTT Bld Gas Analysis Time Sample Site ABG pH ABG pCO2 ABG pO2 ABG HCO3 ABG Total CO2 ABG O2 Saturation ABG Base Excess Norberto Test Respiration Rate O2 Delivery Device Vent Mode FiO2 Tidal Volume PEEP Sodium Potassium Chloride Carbon Dioxide Anion Gap BUN Creatinine Estimated GFR (MDRD) Glucose Lactic Acid Calcium Phosphorus Magnesium Total Bilirubin AST ALT Alkaline Phosphatase Troponin I High Sens 16.8 H* B-Natriuretic Peptide 816 H Total Protein Albumin Globulin Albumin/Globulin Ratio Lipase Urine Color YELLOW Urine Clarity CLEAR Urine pH 7.0 Ur Specific [place] <=1.005 Urine Protein NEGATIVE Urine Glucose (UA) NEGATIVE Urine Ketones NEGATIVE Urine Occult Blood NEGATIVE Urine Nitrite NEGATIVE Urine Bilirubin NEGATIVE Urine Urobilinogen 0.2 (NORMAL) Ur Leukocyte Esterase SMALL H Urine RBC 0-5 Urine WBC 6-10 H Ur Squamous Epith Cells FEW Squamous Urine Bacteria Many H Ur Microscopic Review INDICATED Urine Culture Comments INDICATED Nasal Adenovirus (PCR) Nasal B. parapertussis DNA (PCR) Nasal Coronavir 229E PCR Nasal Coronavir HKU1 PCR Nasal Coronavir NL63 PCR Nasal Coronavir OC43 PCR Nasal Enterovir/Rhinovir PCR Nasal Influenza B PCR Nasal Influenza A PCR Nasal Parainfluen 1 PCR Nasal Parainfluen 2 PCR Nasal Parainfluen 3 PCR Nasal Parainfluen 4 PCR Nasal RSV (PCR) Nasal B.pertussis DNA PCR Nasal C.pneumoniae (PCR) Deonte Human Metapneumo PCR Nasal M.pneumoniae (PCR) Nasal SARS-CoV-2 (PCR) 02/01/22 02/01/22 02/01/22 16:20 16:44 17:05 WBC RBC Hgb Hct MCV MCH MCHC RDW Plt Count MPV Neut # (Auto) Lymph # (Auto) [place] # (Auto) Eos # (Auto) Baso # (Auto) Absolute Nucleated RBC Nucleated RBC % PT INR APTT Bld Gas Analysis Time 1714 Sample Site RIGHT RADIAL ABG pH 7.44 ABG pCO2 25 L* ABG pO2 385 H* ABG HCO3 16.6 L ABG Total CO2 17.4 L ABG O2 Saturation 100 H ABG Base Excess -5.8 L Norberto Test POSITIVE Respiration Rate 22 O2 Delivery Device VENTILATOR Vent Mode ASSIST/CONTROL FiO2 100.00 Tidal Volume 400 PEEP 5 Sodium Potassium Chloride Carbon Dioxide Anion Gap BUN Creatinine Estimated GFR (MDRD) Glucose Lactic Acid 5.0 H* Calcium Phosphorus Magnesium Total Bilirubin AST ALT Alkaline Phosphatase Troponin I High Sens B-Natriuretic Peptide Total Protein Albumin Globulin Albumin/Globulin Ratio Lipase Urine Color Urine Clarity Urine pH Ur Specific [place] Urine Protein Urine Glucose (UA) Urine Ketones Urine Occult Blood Urine Nitrite Urine Bilirubin Urine Urobilinogen Ur Leukocyte Esterase Urine RBC Urine WBC Ur Squamous Epith Cells Urine Bacteria Ur Microscopic Review Urine Culture Comments Nasal Adenovirus (PCR) NOT DETECTED Nasal B. parapertussis DNA (PCR) NOT DETECTED Nasal Coronavir 229E PCR NOT DETECTED Nasal Coronavir HKU1 PCR NOT DETECTED Nasal Coronavir NL63 PCR NOT DETECTED Nasal Coronavir OC43 PCR NOT DETECTED Nasal Enterovir/Rhinovir PCR NOT DETECTED Nasal Influenza B PCR NOT DETECTED Nasal Influenza A PCR NOT DETECTED Nasal Parainfluen 1 PCR NOT DETECTED Nasal Parainfluen 2 PCR NOT DETECTED Nasal Parainfluen 3 PCR NOT DETECTED Nasal Parainfluen 4 PCR NOT DETECTED Nasal RSV (PCR) NOT DETECTED Nasal B.pertussis DNA PCR NOT DETECTED Nasal C.pneumoniae (PCR) NOT DETECTED Deonte Human Metapneumo PCR NOT DETECTED Nasal M.pneumoniae (PCR) NOT DETECTED Nasal SARS-CoV-2 (PCR) NOT DETECTED - Rads (name of study) cxr Radiology: Final report received, EMP read contemporaneously, See rad report (Right IJ catheter is well-positioned. No pneumothorax. ) Procedures - Intubation Provider: Emergency physician Medications: Ketamine, Rocuronium Blade: Glidescope (3) Tube: Size-enter number (7.5), Cuffed, Marked at lips-enter cm (23) Route: Oral Confirmation: Direct visualization, Bilateral breath sounds, No abdominal breath sound, End tidal CO2, Pulse ox, Chest xray Complications: No compications - Central Line Central Line Preparation: Unable to obtain consent, Time out completed, Ultrasound used, Sterile prep and drape Central line location: Right IJ Central line type: Triple lumen Central line aftercare: Chlorhexidine disc placed, Secured, Placement confirmed, No pneumothorax, No complications, Bundle checklist complete, Pt tolerated well PD MEDICAL DECISION MAKING - ED course Complexity details: reviewed old records, reviewed results, re-evaluated patient, considered differential, d/w family, d/w sfdc consultant ED course: Patient is an 81-year-old female brought in by EMS today for bradycardia and respiratory depression. Her laboratory testing does not show any significant elevation of her troponin. Her EKG is a left bundle branch block which is chronic. She was given Narcan by EMS that she is on methadone. No change. She is on metoprolol at home, so glucagon was given here, magnesium given, epinephrine 0.5 mg IV x2 as she was periarrest with barely palpable pulses upon arrival. She improved with epinephrine and was started on epinephrine drip. She was intubated with ketamine and rocuronium. Tolerated well. She then was started on dexmedetomidine for sedation. Discussed with family and she is full code at this time. Possible polypharmacy overdose? Likely unintentional. We will allow the medications to work their way out of her system over the next 24 hours. Discussed the case with Dr. Clark, hospitalist who accepts This document was made in part using voice recognition software. While efforts are made to proofread this document, sound alike and grammatical errors may occur. Patient with an elevated INR. Unclear etiology. Also has an elevated lactate but suspect that this is more related to her hypoperfusion with her bradycardia and hypotension rather than sepsis. Therefore antibiotics were not given. No fevers. No recent illness. - Critical Care Time(min): 45 Time Includes: Direct patient care, Review records, Reassess patient, Document care, Coordinate care, Medical consult, Family consult for tx dec, See progress note Data interpretation: See progress note Procedures included in critical care time: See progress note Procedures excluded from critical care time: Central IV, Intubation, EKG, See progress note Departure - Departure Disposition: 66 [facility] DC/Xfer Clinical Impression: Bradycardia, Hypoxia Hypotension Qualifiers: Hypotension type: unspecified hypotension type Qualified Code(s): I95.9 - Hypotension, unspecified Condition: Serious Discharge Date/Time: 02/01/22 18:37
[2022-02-01] MEDS ORDERED: ONDANSETRON 4 MG/2 ML VIAL IVP PRN (17:14)
[2022-02-01 17:15] LABS: ABG PH 7.44 (7.35-7.45)
[2022-02-01 17:16] LABS: ABG BASE EXCESS -5.8 mmol/L (-2.0-3.0); ABG HCO3 16.6 mmol/L (22.0-26.0); ABG MODE OF VENTILATION ASSIST/CONTROL; ABG OXYGEN SATURATION 100 % (94-98); ABG TCO2 17.4 MMOL/L (21.0-29.0); ALLEN TEST POSITIVE
[2022-02-01 17:17] LABS: ABG RESPIRATORY RATE 22 b/min
[2022-02-01 17:18] LABS: ABG PCO2 25 mmHg (34-45); ABG PO2 385 mmHg (80-100)
--- NOTE | 2022-02-01 17:21 | XRAY Report ---
PROCEDURE: Chest for Line Placement INDICATIONS: ET PLACEMENT, CENTRAL LINE PLACEMENT COMMENTS: AIRWAY AND CENTRAL LINE PLACEMENT. P RIORS: 6.25.22, 6.23.22, 6.13.22, 2.11.22, 11.9.21 TECHNIQUE: One view of the chest was acquired. COMPARISON: 01/25/2022 FINDINGS: Surgical changes and devices: Interval placement of a right IJ catheter with the tip in the SVC. Lef t chest wall pacer pad is seen. Lungs and pleura: No pleural effusions or pneumothorax. Lungs are clear. Mediastinum: Mediastinal contours appear normal. Heart size is normal. Bones and chest wall: No suspicious bony lesions. Overlying soft tissues appear unremarkable. IMPRESSION: Right IJ catheter is well-positioned. No pneumothorax. Reviewed by: Joe Dias on 02/01/2022 4:19 PM TRI Approved by: Joe Dias on 02/01/2022 4:19 PM [id number] Station ID: [id number]
[2022-02-01] MEDS ORDERED: DEXTROSE 50% ABBOJECT 25 GM/50 ML SYRINGE IVP STA (17:26)
[2022-02-01] MEDS ORDERED: INSULIN REGULAR HUMAN 100 UNIT/1 ML 10 ML MDV IVP STA (17:27)
--- NOTE | 2022-02-01 18:09 | HISTORY & PHYSICAL EXAMINATION ---
Chief Complaint - Chief Complaint Chief Complaint: symptomatic bradycardia, hypotension, altered mental status History of Present Illness - Admitted From Admitted From:: [facility] - History Obtained From Records Reviewed: yes History obtained from: patient's daughter Exam Limitations: patient currently sedated and intubated - History of Present Illness HPI Comment/Other: Patient is an 81-year-old female who presented to the ED with low heart rate and decreased responsiveness. The patient's daughter who was at bedside reports that the patient took her yesterday evening medications late around 3 AM And then took the morning medications around 11 AM. Of significance, these medications included metoprolol succinate 100 mg p.o. twice daily, Norpace 200 mg p.o. twice daily and methadone 5 mg p.o. daily. She also noted that she cannot account for 4 tablets of methadone. When she checked her mother's pulse later, her heart rate was 30. When EMS arrive patient was noted to be hypotensive and bradycardic. They reported a heart rate of 20 and a SBP in the 80. Patient was administered Versed by EMS for the purpose of being able to pace her externally using an external pacemaker. In route to the hospital the patient became unresponsive. She was intubated upon arrival in the ED and placed on an epinephrine drip. Sedation was with Precedex. She is presented for admission for further treatment. The patient was just discharged from the hospital on Thursday01/29/22. She had been in the hospital with atrial fibrillation with rapid ventricular rhythm for which she underwent a cardioversion. It successfully converted her into sinus rhythm but then she reconverted back to A. fib with RVR. Prior to being able to discharge her her heart rate was between 60s and 80s. It required a loading dose of digoxin and an increase of metoprolol to 100 twice daily and continuing her Norpace to ensure her heart rate was in the normal range. At bedside patient's lungs are clear to auscultation. Heart rate was 52 on the epinephrine drip. Pupils are very sluggish to react. She had been administered ketamine and rocuronium for the purpose of intubation. 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: Ectopic : reports: None HEENT: reports: Chronic vision loss Psych: reports: None Musculoskeletal: reports: Osteoarthritis, Gout Derm: reports: None MRSA Hx?: No - Past Surgical History General: reports: Appendectomy Ortho: reports: Spine surgery - Family & Social History Family History Comment/Other: Could not obtain social or family history at this time because the patient is sedated and intubated - POLST Patient has POLST: No Meds/Allgy - Home Medications Home Medications: Ambulatory Orders Medication Instructions Recorded Confirmed Disopyramide Phosphate [Norpace Cr] 200 mg PO BID 07/16/13 01/23/22 Pregabalin [Lyrica] 100 mg PO HS 07/16/13 01/23/22 Apixaban [Eliquis] 5 mg ORAL BID 06/11/21 01/23/22 Atorvastatin Calcium [Lipitor] 80 mg PO HS 06/11/21 01/23/22 Methadone [Methadone Hcl] 5 mg PO DAILY 06/11/21 01/23/22 Sumatriptan Succinate [Imitrex] 100 mg PO DAILY PRN 06/11/21 01/23/22 allopurinoL [Zyloprim] 100 mg PO DAILY 06/11/21 01/23/22 Methadone [Methadone Hcl] 10 mg PO QPM 01/24/22 01/24/22 Metoprolol Succinate [Toprol Xl] 100 mg PO BID 30 Days #120 tablet 01/29/22 - Allergies Allergies/Adverse Reactions: Allergies Allergy/AdvReac Type Severity Reaction Status Date / Time No Known Drug Allergies Allergy Verified 01/23/22 09:37 Review of Systems - Other Findings Other Findings: A 12 point review of system is currently limited because the patient is current ly sedated, intubated and unable to provide history. Exam - Vital Signs Vital Signs: Vital Signs x48h Pulse BP 02/01/22 16:20 61 02/01/22 15:49 172/150 H - Physical Exam General Appearance: positive: Other (Sedated and intubated) Eyes Bilateral: positive: Other (pupils were 6mm and sluggish to react to light) ENT: positive: No signs of dehydration Neck: positive: No JVD, Trachea midline Respiratory: positive: Breath sounds nml. negative: Wheezes, Rales, Rhonchi Cardiovascular: positive: Bradycardia Abdomen: positive: Non-tender, Nml bowel sounds, No distention. negative: Guarding, Rebound Skin: positive: Cyanosis (feet) Extremities: positive: No pedal edema Neurologic/Psychiatric: positive: Other (sedated) Conclusion/Plan - Problem List (1) Acute respiratory failure with hypoxia Conclusion/Plan: This could be secondary to accidental overdose on medication. Patient's daughter reports that 4 tablets of her methadone were missing when she counted the pills. Is suspected patient may have accidentally taken more. She is currently intubated and on sedation with Precedex. Anticipating that the opiate will wear off over time. Chest x-ray was clear. ABG showedpH 7.437, PCO2 25.2, PO2 384.5, HCO3 16.6. This was on assist control mode, respiratory rate 22, tidal volume 400, FiO2 100%, PEEP 5. After the ABG results were obtained, respiratory rate was decreased to 18 and FiO2 was decreased to 70%. Will recheck ABG in 2 hours. (2) Hypotension Conclusion/Plan: This may be due to patient's medication. Metoprolol succinate 100 mg p.o. twice daily was a recent increase in dose to enable control of her heart rate. During the last admission she was mostly in atrial fibrillation with rapid ve ntricular rhythm with heart rate in the 130s to 140s. We will hold metoprolol succinate and Norpace. Anticipating improvement in patient's heart rate as the medications were from her system. She was started on epinephrine drip. We will switch to Levophed. Continue IV hydration with normal saline at 150 mL/h. Qualifiers: Hypotension type: unspecified hypotension type Qualified Code(s): I95.9 - Hypotension, unspecified (3) Bradycardia Conclusion/Plan: This may be due to patient's medication. Metoprolol succinate 100 mg p.o. twice daily was a recent increase in dose to enable control of her heart rate. During the last admission she was mostly in atrial fibrillation with rapid ventricular rhythm with heart rate in the 130s to 140s. We will hold metoprolol succinate and Norpace. Anticipating improvement in patient's heart rate as the medications were from her system. She was started on epinephrine drip. We will switch to Levophed. (4) Hyperkalemia Conclusion/Plan: Potassium level was 5.5. This could also contribute to the patient's bradycardia. Patient given 1 amp of D50 and 10 units of regular insulin IVP (5) ELBERT (acute kidney injury) Conclusion/Plan: Possibly related to hypotension due to medications. Patient is currently on Levophed drip. Patient is receiving IV hydration with normal saline at 150 mL/h. Anticipate improvement in patient's renal function. Will recheck with morning labs. (6) Lactic acidosis Conclusion/Plan: Likely secondary to poor perfusion with hypotension and respiratory failure with hypoxia Patient is receiving IV hydration with normal saline at 150 mL/h. Patient has been intubated and is being ventilated appropriately with ap propriate oxygen saturation. Lactic acid was 5.0. We will trend every 4 hours x3 more. - Lab Results Fish Bones: 02/02/22 04:22 02/02/22 04:22 Core Measures - Anticipated LOS I expect patient to be DC'd or transferred within 96 hours.: Yes - DVT/VTE - Prophylaxis VTE/DVT Device ordered at admit?: Yes
[2022-02-01 18:18] LABS: B. PARAPERTUSSIS- RESP PCR PAN NOT DETECTED; B. PERTUSSIS- RESP PCR PANEL NOT DETECTED; C. PNEUMONIAE- RESP PCR PANEL NOT DETECTED; CORONAVIRUS 229E-RESP PCR NOT DETECTED; CORONAVIRUS HKU1-RESP PCR NOT DETECTED; CORONAVIRUS NL63-RESP PCR NOT DETECTED; CORONAVIRUS OC43-RESP PCR NOT DETECTED; HUMAN METAPNEUMOVIRUS NOT DETECTED; INFLUENZA A- RESP PCR PANEL NOT DETECTED; INFLUENZA B - RESP PCR PANEL NOT DETECTED; M. PNEUMONIAE- RESP PCR PANEL NOT DETECTED; PARAINFLUENZA VIRUS 1 NOT DETECTED; PARAINFLUENZA VIRUS 2 NOT DETECTED; PARAINFLUENZA VIRUS 3 NOT DETECTED; PARAINFLUENZA VIRUS 4 NOT DETECTED; RHINOVIRUS/ENTEROVIRUS NOT DETECTED; RSV- RESP PCR PANEL NOT DETECTED; SARS-CoV-2 -RESP PCR PANEL NOT DETECTED
--- NOTE | 2022-02-01 18:19 | XRAY Report ---
PROCEDURE: Chest for Line Placement INDICATIONS: NG LINE PLACEMENT TECHNIQUE: One view of the chest was acquired. COMPARISON: 01/25/2022 and 02/01/2022 FINDINGS: Surgical changes and devices: ET tube tip is at the level of edin and can be pulled back by 2 cm. R ight internal jugular central venous catheter tip is in SVC/right atrium. NG tube tip is below the le ft hemidiaphragm and is in the expected location of stomach lumen. Lungs and pleura: No pleural effusions or pneumothorax. Lungs are clear. Mediastinum: Mediastinal contours appear normal. Heart size is enlarged. Bones and chest wall: No suspicious bony lesions. Overlying soft tissues appear unremarkable. IMPRESSION: NG tube tip is in the region of stomach lumen. Right-sided central venous catheter tip is in SVC/righ t atrium. ET tube tip is at the level of edin and can be pulled back by 2 cm. No focal infiltrate, pleural effusion or pneumothorax. Reviewed by: Ammon Ram MD on 02/01/2022 6:18 PM PDT Approved by: Ammon Ram MD on 02/01/2022 6:18 PM PDT Station ID: [id number]
[2022-02-01] MEDS: DEXMEDETOMIDINE 400 MCG/100 ML 100 ML IV SCH (18:30)
--- NOTE | 2022-02-01 18:37 | CT Report ---
PROCEDURE: HEAD WO INDICATIONS: altered TECHNIQUE: Noncontrast 4.5 mm thick angled axial sections acquired from the foramen magnum to the vertex. For r adiation dose reduction, the following was used: automated exposure control, adjustment of mA and/or kV according to patient size. COMPARISON: None. FINDINGS: Image quality: Excellent. CSF spaces: Basal cisterns are patent. No extra-axial fluid collections. The ventricles are symmet lakisha in size and shape. Brain: No intracranial bleeds or masses. There is cerebral volume loss for age, with resultant vent ricular and sulcal prominence. There are periventricular and deep white matter chronic small vessel ischemic changes. There is intracranial internal carotid artery atherosclerosis. Skull and face: Calvarium and visualized facial bones appear intact, without suspicious lesions. Sinuses: Visualized sinuses and mastoids are clear. IMPRESSION: 1. No CT evidence of acute intracranial bleed, midline shift or mass effect. No CT evidence of acute infarction. 2. Age-appropriate atrophy and mild white matter chronic small vessel ischemic changes. Reviewed by: Ammon Ram MD on 02/01/2022 6:35 PM PDT Approved by: Ammon Ram MD on 02/01/2022 6:35 PM PDT Station ID: [id number]
[2022-02-01] MEDS: ROCURONIUM 50 MG/5 ML VIAL IVP STA ×2 (19:30→23:16)
[2022-02-01] MEDS: KETAMINE 500 MG/10 ML VIAL IVP STA ×2 (19:32→23:18)
[2022-02-01] MEDS: SODIUM CHLORIDE FLUSH 0.9% 10 ML SYRINGE IVP PRN (20:30)
[2022-02-01 20:44] LABS: CALCIUM 9.3 mg/dL (8.5-10.3); POTASSIUM 4.4 mmol/L (3.5-5.0)
[2022-02-01 21:02] LABS: ABG BASE EXCESS -5.7 mmol/L (-2.0-3.0); ABG HCO3 17.8 mmol/L (22.0-26.0); ABG OXYGEN SATURATION 99 % (94-98); ABG PCO2 29 mmHg (34-45); ABG TCO2 18.7 MMOL/L (21.0-29.0)
[2022-02-01 21:03] LABS: ABG MODE OF VENTILATION ASSIST/CONTROL; ABG RESPIRATORY RATE 18 b/min; ALLEN TEST POSITIVE
[2022-02-01 21:07] LABS: ABG PO2 159 mmHg (80-100)
[2022-02-01] MEDS: CHLORHEXIDINE GLUCONATE 15 ML UDC PO SCH (21:31)
[2022-02-01] MEDS: DEXTROSE 5%-0.9% NACL 1,000 ML IV SCH (21:32)
[2022-02-01] MEDS ORDERED: ATROPINE 0.4 MG/ML VIAL IVP ONE ×2 (22:22→22:54)
[2022-02-01] MEDS ORDERED: AMINOPHYLLINE 500 MG in SODIUM CHLORIDE 0.9% 480 ML IV ONE (22:23)
[2022-02-01] MEDS: SODIUM CHLORIDE FLUSH 0.9% 10 ML SYRINGE IVP SCH (22:44)
[2022-02-02 00:26] LABS: ABG HCO3 16.5 mmol/L (22.0-26.0); ABG PH 7.48 (7.35-7.45); ABG TCO2 17.2 MMOL/L (21.0-29.0)
[2022-02-02 00:27] LABS: ABG BASE EXCESS -4.9 mmol/L (-2.0-3.0); ABG OXYGEN SATURATION 99 % (94-98); ALLEN TEST POSITIVE
[2022-02-02 00:29] LABS: ABG MODE OF VENTILATION SIMV; ABG PCO2 23 mmHg (34-45); ABG PO2 150 mmHg (80-100); ABG RESPIRATORY RATE 18 b/min
[2022-02-02] MEDS: DEXMEDETOMIDINE 400 MCG/100 ML 100 ML IV SCH (03:09)
[2022-02-02] MEDS ORDERED: ACETAMINOPHEN 1,000 MG/100 ML 1,000 MG/100 ML BAG IV PRN (03:56)
[2022-02-02] MEDS: SODIUM CHLORIDE FLUSH 0.9% 10 ML SYRINGE IVP SCH (04:27)
[2022-02-02 04:46] LABS: BASOPHILS % (AUTO) 0.2 %; EOSINOPHILS % (AUTO) 0.1 %; HCT - HEMATOCRIT 38.1 % (37.0-47.0); HGB - HEMOGLOBIN 12.9 g/dL (12.0-16.0); LYMPHOCYTES # (AUTO) 1.5 10^3/uL (1.5-3.5); LYMPHOCYTES % (AUTO) 13.2 %; MEAN CORPUSCULAR HEMOGLOBIN 31.2 pg (27.0-31.0); MEAN CORPUSCULAR HGB CONC 33.9 g/dL (32.0-36.0); MEAN PLATELET VOLUME 12.2 fL (7.9-10.8); MONOCYTES # (AUTO) 0.9 10^3/uL (0.0-1.0); MONOCYTES % (AUTO) 7.8 %; NEUTROPHILS % (AUTO) 78.3 %; PLT - PLATELET COUNT 246 10^3/uL (130-450); RED BLOOD COUNT 4.14 10^6/uL (4.20-5.40); RED CELL DISTRIBUTION WIDTH 15.4 % (12.0-15.0); WHITE BLOOD COUNT 11.5 x10^3/uL (4.8-10.8)
[2022-02-02 04:53] LABS: CALCIUM 9.1 mg/dL (8.5-10.3); CREATININE 1.9 mg/dL (0.4-1.0); POTASSIUM 5.3 mmol/L (3.5-5.0)
[2022-02-02 04:55] LABS: MAGNESIUM 2.6 mg/dL (1.7-2.8); PHOSPHORUS 2.6 mg/dL (2.5-4.6)
[2022-02-02] MEDS: SODIUM CHLORIDE FLUSH 0.9% 10 ML SYRINGE IVP PRN (06:37)
[2022-02-02 06:48] LABS: ABG PCO2 22 mmHg (34-45); ABG PH 7.54 (7.35-7.45)
[2022-02-02 06:49] LABS: ABG BASE EXCESS -1.7 mmol/L (-2.0-3.0); ABG HCO3 18.8 mmol/L (22.0-26.0); ABG OXYGEN SATURATION 98 % (94-98); ABG PO2 97 mmHg (80-100); ABG TCO2 19.5 MMOL/L (21.0-29.0)
[2022-02-02 06:50] LABS: ALLEN TEST POSITIVE
[2022-02-02 06:51] LABS: ABG MODE OF VENTILATION SIMV; ABG RESPIRATORY RATE 18 b/min
[2022-02-02] MEDS ORDERED: PANTOPRAZOLE 40 MG VIAL IVP SCH (07:00)
--- NOTE | 2022-02-02 07:06 | PROVIDER PROGRESS NOTE ---
Destaticizer Feeder Note - Destaticizer Feeder Note Destaticizer Feeder Note: At 2300 the pt's HR was reported to be 30 in sinus rhythm, I confirmed this on telemetry. Atropine 0.5 mg iv x2 was ordered. HR remained 30-32. Aminophylline drip was ordered. HR remained 30-35, but BP was stable at 100/50 approx. At 0130 her HR was 28. External pacing was started: threshold was 8mamp, setting 45 bpm. With BP improved to 128/90, and Levophed was decreased.
[2022-02-02] MEDS: DEXTROSE 5%-0.9% NACL 1,000 ML IV SCH (08:00)
[2022-02-02] MEDS ORDERED: DEXTROSE 50% ABBOJECT 25 GM/50 ML SYRINGE IVP ONE (08:10)
[2022-02-02] MEDS ORDERED: INSULIN REGULAR HUMAN 300 UNIT/3 ML VIAL IVP STA (08:18)
[2022-02-02] MEDS: CHLORHEXIDINE GLUCONATE 15 ML UDC PO SCH (08:45)
[2022-02-02] MEDS ORDERED: MORPHINE 2 MG/ML CARPUJECT IVP PRN (08:54)
[2022-02-02] MEDS ORDERED: CEFEPIME 1 GM in SODIUM CHLORIDE 0.9% MINIBAG 100 ML IV SCH (09:00)
--- NOTE | 2022-02-02 09:40 | XRAY Report ---
PROCEDURE: Chest 1 View X-Ray INDICATIONS: Intubated. TECHNIQUE: One view of the chest was acquired. COMPARISON: 02/01/2022 FINDINGS: Surgical changes and devices: Right IJ catheter. Nasogastric tube is seen with the tip in the stomac h. Lungs and pleura: Small right pleural effusion. Lungs are clear. Mediastinum: Mediastinal contours appear normal. Heart size is enlarged. Bones and chest wall: No suspicious bony lesions. Overlying soft tissues appear unremarkable. IMPRESSION: 1. Nasogastric tube is seen within the stomach. 2. Small right pleural effusion. Reviewed by: Joe Dias on 02/02/2022 8:38 AM TRI Approved by: Joe Dias on 02/02/2022 8:38 AM TRI Station ID: [id number]
[2022-02-02] MEDS ORDERED: VANCOMYCIN INJ 1 GM, VANCOMYCIN INJ 500 MG in SODIUM CHLORIDE 0.9% 500 ML IV ONE (10:00)
--- NOTE | 2022-02-02 10:36 | DISCHARGE SUMMARY ---
Discharge Summary Admit Date: 02/01/22 Discharge Date: 02/02/22 Discharging Provider: Srinivasa Clark Primary Care Provider: Darrin Salinas Code Status: Attempt Resuscitation Condition at Discharge: Serious Discharge Disposition: Transfer Acute Care Hosp Discharge Facility Name: [facility] - DIAGNOSES Admission Diagnoses: Acute respiratory failure with hypoxia Hypotension Bradycardia Hyperkalemia Lactic acidosis Discharge Diagnoses with Status of Each Condition: Acute respiratory failure with hypoxia: Patient sedated and intubated. Being transferred to [facility] Hypotension: On levophed drip Bradycardia: Transcutaneously paced. Transferred to [place] for cardiology co nsult and possible pace-maker placement Hyperkalemia: Improved. Treated Lactic acidosis: Improved Febrile:Etiology undetermined. Possibly UTI. Blood cultures drawn. Empiric Vanc/ Cefepime given - HPI History of Present Illness: Per HPI of admission H&P on 02/01/22: Patient is an 81-year-old female who presented to the ED with low heart rate and decreased responsiveness. The patient's daughter who was at bedside reports that the patient took her yesterday evening medications late around 3 AM And then took the morning medications around 11 AM. Of significance, these medications included metoprolol succinate 100 mg p.o. twice daily, Norpace 200 mg p.o. twice daily and methadone 5 mg p.o. daily. She also noted that she cannot account for 4 tablets of methadone. When she checked her mother's pulse later, her heart rate was 30. When EMS arrive patient was noted to be hypotensive and bradycardic. They reported a heart rate of 20 and a SBP in the 80. Patient was administered Versed by EMS for the purpose of being able to pace her using an external pacemaker. In route to the hospital the patient became unresponsive. She was intubated upon arrival in the ED and placed on an epinephrine drip. Sedation was with Precedex. She is presented for admission for further treatment. The patient was just discharged from the hospital on Thursday01/29/22. She had been in the hospital with atrial fibrillation with rapid ventricular rhythm for which she underwent a cardioversion. It successfully converted her into sinus rhythm but then she reconverted back to A. fib with RVR. Prior to being able to discharge her her heart rate was between 60s and 80s. It required a loading dose of digoxin and an increase of metoprolol to 100 twice daily and continuing her Norpace to ensure her heart rate was in the normal range. At bedside patient's lungs are clear to auscultation. Heart rate was 52 on the epinephrine drip. Pupils are very sluggish to react. She had been administered ketamine and rocuronium for the purpose of intubation. - HOSPITAL COURSE Hospital Course: Epinephrine drip was switched for Levophed drip. Sedation with Precedex was maintained. Patient's systolic blood pressure improved to the 130s and pulse 64. She was on IV hydration with normal saline at 150 mL/h. Troponin I trends were 16.8, 36.3 then 35.8. Initial BNP was 816 with repeat BNP the following day of 1643. Per the Eliserpercyt's note of 02/01/22 night At 2300 on 02/01/22 the pt's HR was reported to be 30 in sinus rhythm, I confirmed this on telemetry. Atropine 0.5 mg iv x2 was ordered. HR remained 30-32. Aminophylline drip was ordered. HR remained 30-35, but BP was stable at 100/50 approx. At 0130 her HR was 28. External pacing was started: threshold was 8mamp, setting 45 bpm. With BP improved to 128/90, and Levophed was decreased. Around 9am on 02/02/22, the patient went into a sustained Vtach. She was shocked once. This converted her to sinus rhythm with a rate of 45. Shortly after that patient's heart rate dropped to the 30s again so the external pacing was resumed. Patient was febrile this morning with a temperature of 38.1. Etiology undetermined. However possible source is urinary tract infection. Blood cultures were drawn and patient was empirically treated with vancomycin and cefepime. Patient's lactic acid improved from 5 yesterday down to 2.7. She received 2 doses of dextrose 50 and 10 units of regular insulin IV for potassium of 5.5 and 5.3. Patient was presented to Dr. Alfaro and Dr. Motley, Head Of Visual Merchandising and director funds development respectively at [facility] in [facility]. Dr. Alfaro accepted the patient to the ICU service. - ALLERGIES Allergies/Adverse Reactions: Allergies Allergy/AdvReac Type Severity Reaction Status Date / Time No Known Drug Allergies Allergy Verified 01/23/22 09:37 - MEDICATIONS Home Medications: Ambulatory Orders Medication Instructions Recorded Confirmed Disopyramide Phosphate [Norpace Cr] 200 mg PO BID 07/16/13 01/23/22 Pregabalin [Lyrica] 100 mg PO HS 07/16/13 01/23/22 Apixaban [Eliquis] 5 mg ORAL BID 06/11/21 01/23/22 Atorvastatin Calcium [Lipitor] 80 mg PO HS 06/11/21 01/23/22 Methadone [Methadone Hcl] 5 mg PO DAILY 06/11/21 01/23/22 Sumatriptan Succinate [Imitrex] 100 mg PO DAILY PRN 06/11/21 01/23/22 allopurinoL [Zyloprim] 100 mg PO DAILY 06/11/21 01/23/22 Methadone [Methadone Hcl] 10 mg PO QPM 01/24/22 01/24/22 Metoprolol Succinate [Toprol Xl] 100 mg PO BID 30 Days #120 tablet 01/29/22 - PHYSICAL EXAM AT DISCHARGE General Appearance: positive: No acute distress, Other (sedated and intubated) Eyes Bilateral: positive: PERRL, EOMI ENT: positive: No signs of dehydration Neck: positive: No JVD, Trachea midline Respiratory: positive: Chest non-tender, No respiratory distress, Breath sounds nml. negative: Wheezes, Rales, Rhonchi Cardiovascular: positive: Other (paced ) Abdomen: positive: Non-tender, No organomegaly, Nml bowel sounds, No distention. negative: Guarding, Rebound Back: positive: Nml inspection Skin: positive: Color nml, No rash, Warm, Dry Extremities: positive: Non-tender, Full ROM, Nml appearance, No pedal edema Neurologic/Psychiatric: positive: Other (Sedated) - LABS Result Diagrams: 02/02/22 04:22 02/02/22 04:22 - TIME SPENT Time Spent in Discharge (Minutes): 20
--- NOTE | 2022-02-02 10:42 | Discharge Plan ---
Discharge Plan Problem Reviewed?: Yes Disposition: 02 Transfer Acute Care Hosp Condition: Serious Diet: Cardiac Health Concerns: Patient was admitted on 02/01/2022 with a heart rate of 20 and systolic blood pressure as low as 80. In route to the hospital from home she was unresponsive. She was intubated in the ED and started on epinephrine drip. She was then admitted to the ICU. Epinephrine drip was switched to Levophed drip. Patient's heart rate initially improved to 64 with systolic blood pressures in the 130s. However overnight patient's heart rate dropped to the 30s again. Atropine 0.5 mg IV x2 was attempted but the heart rate remained between 30 and 32. Patient was then externally paced. Threshold was 8 mg with setting of 45 bpm. Levophed drip was maintained. Later in the morning patient went into sustained monomorphic V. tach for which she received 1 shock of 200 J. This converted her to sinus rhythm with heart rate of 45. Her heart rate then subsequently dropped to 30 minutes so the external pacing was resumed. Patient was presented to the veterinary medical officer and porcelain enamel repairer at [facility] in [facility]. These are Dr. Motley and Dr. Wang respectively. The patient was accepted to [facility] and is being transferred for higher level of care to include possible pacemaker placement. The patient's daughter/ family was updated of the developments overnight and this morning. No Smoking: If you smoke, Please STOP! Call for help.
[2022-02-02 12:37] VITALS: BP 154/78
== END 2022-02-02 12:30 | disposition short-term general hospital (02) | DRG 208 ==
LOC: EDUNIT# → EDBD → ED 15:34 → ICU 17:14
PROVIDERS: ADMIT Internal Medicine; ATTEND Internal Medicine
PROC: 5A1935Z Respiratory Ventilation, Less than 24 Consecutive Hours (ICD-10-PCS; principal; 2022-02-01)
DX: J96.01 Acute respiratory failure with hypoxia (principal); E87.2 Acidosis; N39.0 Urinary tract infection, site not specified; I44.7 Left bundle-branch block, unspecified; I47.2 Ventricular tachycardia; I44.0 Atrioventricular block, first degree; R09.02 Hypoxemia; Z20.822 Contact with and (suspected) exposure to COVID-19; Z87.891 Personal history of nicotine dependence; N17.9 Acute kidney failure, unspecified; I95.9 Hypotension, unspecified; R00.1 Bradycardia, unspecified; E87.5 Hyperkalemia; R41.82 Altered mental status, unspecified; I10 Essential (primary) hypertension; E78.00 Pure hypercholesterolemia, unspecified; I48.91 Unspecified atrial fibrillation; K21.9 Gastro-esophageal reflux disease without esophagitis; K59.09 Other constipation; G43.909 Migraine, unspecified, not intractable, without status migrainosus; H54.7 Unspecified visual loss; M19.90 Unspecified osteoarthritis, unspecified site; M10.9 Gout, unspecified; Z79.01 Long term (current) use of anticoagulants; Z79.899 Other long term (current) drug therapy; Z90.49 Acquired absence of other specified parts of digestive tract
CPT/HCPCS: 31500; 36415; 36556; 36600; 51702; 70450; 71045; 80048; 80053; 81001; 82803; 83605; 83690; 83735; 83880; 84100; 84484; 85025; 85610; 85730; 87040; 87077; 87086; 87150; 87181; 87633; 93005; 94002; 94003; 96365; 96368; 99291; A9270; J0131; J1815; J3370; 81003; 94770

== ENCOUNTER → 2022-02-01 | Outpatient (CLI) | payer MEDICARE | END | disposition critical access hospital (66) | LOC: EMS 15:21 | DX: R06.02 Shortness of breath (principal); R00.1 Bradycardia, unspecified; I95.9 Hypotension, unspecified | CPT/HCPCS: A0425; A0427 ==

== ENCOUNTER 2022-12-01 03:48 | Emergency (ER) | payer MEDICARE ==
[2022-12-01 04:36] LABS: BASOPHILS % (AUTO) 0.3 %; EOSINOPHILS # (AUTO) 0.1 10^3/uL (0.0-0.7); EOSINOPHILS % (AUTO) 0.8 %; HCT - HEMATOCRIT 39.9 % (37.0-47.0); HGB - HEMOGLOBIN 13.1 g/dL (12.0-16.0); LYMPHOCYTES # (AUTO) 1.6 10^3/uL (1.5-3.5); LYMPHOCYTES % (AUTO) 13.7 %; MEAN CORPUSCULAR HGB CONC 32.8 g/dL (32.0-36.0); MEAN CORPUSCULAR VOLUME 88.5 fL (81.0-99.0); MEAN PLATELET VOLUME 12.1 fL (7.9-10.8); MONOCYTES % (AUTO) 8.8 %; NEUTROPHILS # (AUTO) 8.9 10^3/uL (1.5-6.6); NEUTROPHILS % (AUTO) 76.1 %; PLT - PLATELET COUNT 210 10^3/uL (130-450); RED BLOOD COUNT 4.51 10^6/uL (4.20-5.40); WHITE BLOOD COUNT 11.7 x10^3/uL (4.8-10.8)
[2022-12-01 04:43] LABS: INR 3.2 (0.8-1.2); PT - PROTHROMBIN TIME 32.7 secs (9.9-12.6)
[2022-12-01 04:51] LABS: ALBUMIN 4.3 g/dL (3.2-5.5); ALBUMIN/GLOBULIN RATIO 1.3 (1.0-2.2); BILIRUBIN,TOTAL 0.9 mg/dL (0.2-1.0); CALCIUM 9.6 mg/dL (8.5-10.3); CREATININE 1.6 mg/dL (0.4-1.0); TOTAL PROTEIN 7.5 g/dL (6.7-8.2)
[2022-12-01 05:19] LABS: VBG HCO3 25.8 mmol/L (23-28); VBG PCO2 47.3 mmHg (41-51); VBG PH 7.355 (7.31-7.41); VBG PO2 29.8 mmHg (25-47); VBG TOTAL CO2 27.3 mmol/L (24-29)
[2022-12-01 05:20] LABS: VBG BASE EXCESS -0.2 mmol/L (-2 - +2); VBG OXYGEN SATURATION 50.6 % (60-80)
[2022-12-01 05:22] LABS: CORONAVIRUS 229E-RESP PCR NOT DETECTED; CORONAVIRUS HKU1-RESP PCR NOT DETECTED; CORONAVIRUS NL63-RESP PCR NOT DETECTED; CORONAVIRUS OC43-RESP PCR NOT DETECTED; HUMAN METAPNEUMOVIRUS NOT DETECTED; INFLUENZA A- RESP PCR PANEL NOT DETECTED; RHINOVIRUS/ENTEROVIRUS NOT DETECTED; SARS-CoV-2 -RESP PCR PANEL NOT DETECTED
[2022-12-01 05:23] LABS: B. PARAPERTUSSIS- RESP PCR PAN NOT DETECTED; B. PERTUSSIS- RESP PCR PANEL NOT DETECTED; C. PNEUMONIAE- RESP PCR PANEL NOT DETECTED; INFLUENZA B - RESP PCR PANEL NOT DETECTED; M. PNEUMONIAE- RESP PCR PANEL NOT DETECTED; PARAINFLUENZA VIRUS 1 NOT DETECTED; PARAINFLUENZA VIRUS 2 NOT DETECTED; PARAINFLUENZA VIRUS 3 NOT DETECTED; PARAINFLUENZA VIRUS 4 NOT DETECTED; RSV- RESP PCR PANEL NOT DETECTED
[2022-12-01] MEDS ORDERED: BUPIVACAINE 0.5% PF 10 ML VIAL SUBQ STA (05:36)
[2022-12-01] MEDS ORDERED: fentaNYL 100 MCG/2 ML VIAL IVP STA (05:56)
[2022-12-01] MEDS ORDERED: ONDANSETRON 4 MG/2 ML VIAL IVP STA (05:57)
[2022-12-01] MEDS ORDERED: PROPOFOL 200 MG/20 ML VIAL IVP STA (06:29)
--- NOTE | 2022-12-01 07:34 | ED Physician Documentation ---
History of Present Illness - Stated complaint Stated Complaint: GLF/WRIST/HIP INJ - Chief complaint Chief Complaint: Trauma Ext - Additonal information Additional information: Patient 82-year-old female presenting to the emergency department status post fall. Reports was on her way to the bathroom and fell forward landing on her outstretched left hand. Also reports struck her left hip. Is on Eliquis secondary to A-fib. Also has history of heart failure with recent pacer placement. States that she has been short of breath and has not been sleeping for the last 3 days. Denies weight gain, chest pain, abdominal pain, head trauma or loss of consciousness. 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: Ectopic : None HEENT: Chronic vision loss Psych: None Musculoskeletal: Osteoarthritis, Gout Derm: None - Past Surgical History Past Surgical History: Yes General: Appendectomy Ortho: Spine surgery - Present Medications Home Medications: Ambulatory Orders Medication Instructions Recorded Confirmed Disopyramide Phosphate [Norpace Cr] 200 mg PO BID 07/16/13 01/23/22 Pregabalin [Lyrica] 100 mg PO HS 07/16/13 01/23/22 Apixaban [Eliquis] 5 mg ORAL BID 06/11/21 01/23/22 Atorvastatin Calcium [Lipitor] 80 mg PO HS 06/11/21 01/23/22 Methadone [Methadone Hcl] 5 mg PO DAILY 06/11/21 01/23/22 Sumatriptan Succinate [Imitrex] 100 mg PO DAILY PRN 06/11/21 01/23/22 allopurinoL [Zyloprim] 100 mg PO DAILY 06/11/21 01/23/22 Methadone [Methadone Hcl] 10 mg PO QPM 01/24/22 01/24/22 Metoprolol Succinate [Toprol Xl] 100 mg PO BID 30 Days #120 tablet 01/29/22 - Allergies Allergies/Adverse Reactions: Allergies Allergy/AdvReac Type Severity Reaction Status Date / Time acetaminophen [From Vicodin] AdvReac Emesis Verified 12/01/22 04:01 hydrocodone [From Vicodin] AdvReac Emesis Verified 12/01/22 04:01 - Social History Does the pt smoke?: No Smoking Status: Former smoker Does the pt drink ETOH?: Yes Does the pt have substance abuse?: No - Immunizations Immunizations are current?: Yes - POLST Patient has POLST: No PD ED PE NORMAL - Vitals Vital signs reviewed: Yes - General General: Alert and oriented X 3, No acute distress - HEENT HEENT: Atraumatic - Neck Neck: Supple, no meningeal sign - Cardiac Cardiac: RRR, Other (Pacemaker present) - Respiratory Respiratory: No respiratory distress - Extremities Extremities: Other (Obvious deformity with ecchymosis around the left wrist. Radial and ulnar pulses palpable. Patient reports normal sensation distal to site of injury. 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 Relevant findings are: Ventricularly paced rhythm with rate 74 bpm. Left axis deviation. Left bundle branch block morphology. No concordant ST segment elevations, concordant ST segment depressions or excessive discordance in any lead. - Labs Labs: Laboratory Tests 12/01/22 12/01/22 12/01/22 04:25 04:30 04:30 WBC 11.7 H RBC 4.51 Hgb 13.1 Hct 39.9 MCV 88.5 MCH 29.0 MCHC 32.8 RDW 15.0 Plt Count 210 MPV 12.1 H Neut # (Auto) 8.9 H Lymph # (Auto) 1.6 [place] # (Auto) 1.0 Eos # (Auto) 0.1 Baso # (Auto) 0.0 Absolute Nucleated RBC 0.00 Nucleated RBC % 0.0 PT 32.7 H INR 3.2 H VBG pH VBG pCO2 VBG pO2 VBG HCO3 VBG Total CO2 VBG O2 Saturation VBG Base Excess Sodium Potassium Chloride Carbon Dioxide Anion Gap BUN Creatinine Estimated GFR (MDRD) Glucose Calcium Total Bilirubin AST ALT Alkaline Phosphatase Troponin I High Sens B-Natriuretic Peptide Total Protein Albumin Globulin Albumin/Globulin Ratio Lipase Nasal Adenovirus (PCR) NOT DETECTED Nasal B. parapertussis DNA (PCR) NOT DETECTED Nasal Coronavir 229E PCR NOT DETECTED Nasal Coronavir HKU1 PCR NOT DETECTED Nasal Coronavir NL63 PCR NOT DETECTED Nasal Coronavir OC43 PCR NOT DETECTED Nasal Enterovir/Rhinovir PCR NOT DETECTED Nasal Influenza B PCR NOT DETECTED Nasal Influenza A PCR NOT DETECTED Nasal Parainfluen 1 PCR NOT DETECTED Nasal Parainfluen 2 PCR NOT DETECTED Nasal Parainfluen 3 PCR NOT DETECTED Nasal Parainfluen 4 PCR NOT DETECTED Nasal RSV (PCR) NOT DETECTED Nasal B.pertussis DNA PCR NOT DETECTED Nasal C.pneumoniae (PCR) NOT DETECTED Deonte Human Metapneumo PCR NOT DETECTED Nasal M.pneumoniae (PCR) NOT DETECTED Nasal SARS-CoV-2 (PCR) NOT DETECTED 12/01/22 12/01/22 12/01/22 04:30 04:30 04:30 WBC RBC Hgb Hct MCV MCH MCHC RDW Plt Count MPV Neut # (Auto) Lymph # (Auto) [place] # (Auto) Eos # (Auto) Baso # (Auto) Absolute Nucleated RBC Nucleated RBC % PT INR VBG pH VBG pCO2 VBG pO2 VBG HCO3 VBG Total CO2 VBG O2 Saturation VBG Base Excess Sodium 130 L Potassium 4.0 Chloride 89 L Carbon Dioxide 28 Anion Gap 13.0 BUN 41 H Creatinine 1.6 H Estimated GFR (MDRD) 31 L Glucose 115 H Calcium 9.6 Total Bilirubin 0.9 AST 47 H ALT 50 Alkaline Phosphatase 93 Troponin I High Sens 29.5 H* B-Natriuretic Peptide 1448 H Total Protein 7.5 Albumin 4.3 Globulin 3.2 Albumin/Globulin Ratio 1.3 Lipase 44 Nasal Adenovirus (PCR) Nasal B. parapertussis DNA (PCR) Nasal Coronavir 229E PCR Nasal Coronavir HKU1 PCR Nasal Coronavir NL63 PCR Nasal Coronavir OC43 PCR Nasal Enterovir/Rhinovir PCR Nasal Influenza B PCR Nasal Influenza A PCR Nasal Parainfluen 1 PCR Nasal Parainfluen 2 PCR Nasal Parainfluen 3 PCR Nasal Parainfluen 4 PCR Nasal RSV (PCR) Nasal B.pertussis DNA PCR Nasal C.pneumoniae (PCR) Deonte Human Metapneumo PCR Nasal M.pneumoniae (PCR) Nasal SARS-CoV-2 (PCR) 12/01/22 05:11 WBC RBC Hgb Hct MCV MCH MCHC RDW Plt Count MPV Neut # (Auto) Lymph # (Auto) [place] # (Auto) Eos # (Auto) Baso # (Auto) Absolute Nucleated RBC Nucleated RBC % PT INR VBG pH 7.355 VBG pCO2 47.3 VBG pO2 29.8 VBG HCO3 25.8 VBG Total CO2 27.3 VBG O2 Saturation 50.6 L VBG Base Excess -0.2 Sodium Potassium Chloride Carbon Dioxide Anion Gap BUN Creatinine Estimated GFR (MDRD) Glucose Calcium Total Bilirubin AST ALT Alkaline Phosphatase Troponin I High Sens B-Natriuretic Peptide Total Protein Albumin Globulin Albumin/Globulin Ratio Lipase Nasal Adenovirus (PCR) Nasal B. parapertussis DNA (PCR) Nasal Coronavir 229E PCR Nasal Coronavir HKU1 PCR Nasal Coronavir NL63 PCR Nasal Coronavir OC43 PCR Nasal Enterovir/Rhinovir PCR Nasal Influenza B PCR Nasal Influenza A PCR Nasal Parainfluen 1 PCR Nasal Parainfluen 2 PCR Nasal Parainfluen 3 PCR Nasal Parainfluen 4 PCR Nasal RSV (PCR) Nasal B.pertussis DNA PCR Nasal C.pneumoniae (PCR) Deonte Human Metapneumo PCR Nasal M.pneumoniae (PCR) Nasal SARS-CoV-2 (PCR) Procedures - Reduction Body part reduced: Left, Wrist Fracture or dislocation: Fracture dislocation Anesthesia: Hematoma block - Procedural sedation Sedation prep: Informed consent, Time out completed, Last meal, ASA 2 - mild disease, IV O2 monitor, ET CO2 monitor, RT present Sedation Medications: propofol Mallampati classification: II Patient status during sedation: Responds to tactile Sedation recovery: Recovered uneventfully, Back to baseline Time in sedation (Minutes): 10 PD Medical Decision Making - ED course Complexity details: reviewed results, re-evaluated patient, d/w patient ED course: Patient 82-year-old female presenting to the emergency department after mechanical fall in setting 3 days shortness of breath. Afebrile, hemodynamic stable on arrival to the emergency department. Patient chronically anticoagulated in setting of A-fib. Head CT negative for acute Intracranial pathology. Obvious deformity to the left wrist with x-ray demonstrating vulvar Ramirez's fracture. X-ray left hip negative. EKG is outlined above demonstrates paced rhythm without indications of acute cardiac ischemia or dysrhythmia. Patient did have a mild elevation in high- sensitivity troponin however chart review demonstrates that she is chronically elevated. She did have a significant elevation in beta natruretic peptide. Chest x-ray negative for consolidation. Wrist reduced as outlined in procedure note above. This time I will be signing out to the oncoming physician, please see their documentation for further detail. Departure - Departure Clinical Impression: Fall Qualifiers: Encounter type: initial encounter Qualified Code(s): W19.XXXA - Unspecified fall, initial encounter Distal radius fracture, left Qualifiers: Encounter type: initial encounter Fracture type: closed Fracture morphology: unspecified fracture morphology Qualified Code(s): S52.502A - Unspecified fracture of the lower end of left radius, initial encounter for closed fracture
--- NOTE | 2022-12-01 08:14 | ED Physician Documentation ---
ED Addendum - Addendum Addendum: 12/01/22 08:[address] Whelan at shift change. She is feeling good from her wrist, it has been reduced by him. I checked the left hip. She has full painless range of motion of that with no pain with internal/external rotation. She is comfortable going home. Her supportive son is at the bedside. Discussed need for follow-up with orthopedics. Note made that she has an allergy to hydrocodone, the hydrocodone makes her nauseous. She is tolerated codeine in the past. I sent a prescription for Tylenol 3 1 tab every 6 hours as needed pain #15 to [facility] in [place], no refills.. Disposition: Discharged home Condition: Stable Diagnosis: 1. Ground-level fall 2. Left hip contusion 3. Colles' fracture left wrist 12/01/22 08:18
--- NOTE | 2022-12-01 08:15 | XRAY Report ---
PROCEDURE: Chest 1 View X-Ray INDICATIONS: chest pain TECHNIQUE: One view of the chest was acquired. COMPARISON: Chest x-ray 02/02/2022 FINDINGS: Surgical changes and devices: Pacemaker. Lungs and pleura: No pleural effusions or pneumothorax. Lungs are clear. Mediastinum: Mediastinal contours appear normal. Heart size is enlarged. Bones and chest wall: No suspicious bony lesions. Overlying soft tissues appear unremarkable. IMPRESSION: No acute pulmonary process. The above findings are concordant with preliminary report. Reviewed by: Tamy Daniel MD on 12/01/2022 8:14 AM PDT Approved by: Tamy Daniel MD on 12/01/2022 8:14 AM PDT Station ID: [id number]
--- NOTE | 2022-12-01 08:16 | XRAY Report ---
PROCEDURE: Hip w/Pelvis 2-3V LT INDICATIONS: trauma TECHNIQUE: AP pelvis with lateral view(s) of the left hip(s). COMPARISON: None. FINDINGS: Bones: No fractures or dislocations. No suspicious bony lesions. Moderate bilateral hip degenerat kandy narrowing. Degenerative changes are present within the lower lumbar spine. Soft tissues: No suspicious soft tissue calcifications or masses. IMPRESSION: Moderate bilateral hip arthritic change. No visualized acute fracture or dislocation. However, occult injury cannot be excluded. Recommend short interval imaging follow-up in 7-10 days as clinically ind icated for additional evaluation. The above findings are concordant with preliminary report. Reviewed by: Tamy Daniel MD on 12/01/2022 8:15 AM PDT Approved by: Tamy Daniel MD on 12/01/2022 8:15 AM PDT Station ID: [id number]
--- NOTE | 2022-12-01 08:19 | XRAY Report ---
PROCEDURE: Wrist 4 View LT INDICATIONS: trauma TECHNIQUE: 4 views of the wrist were acquired. COMPARISON: None. FINDINGS: Bones: Intra-articular distal radial fracture is present. There is mild impaction as well as ventral displacement of the distal fragment. There is appearance of prominent subluxation versus mild disloc ation at the radiocarpal joint. Degenerative carpal as well as first CMC changes are present. Scaphoid view: Suspected nondisplaced scaphoid fracture not well seen in all views. Soft tissues: No suspicious soft tissue calcifications or masses. Chondrocalcinosis is present. IMPRESSION: Intra-articular displaced distal radial fracture. Prominent subluxation versus dislocation at the radiocarpal joint space. Suspected scaphoid fracture, not well seen on all views. CT may be obtained as clinically indicated. The above findings are concordant with preliminary report. Reviewed by: Tamy Daniel MD on 12/01/2022 8:18 AM PDT Approved by: Tamy Daniel MD on 12/01/2022 8:18 AM PDT Station ID: [id number]
--- NOTE | 2022-12-01 08:20 | CT Report ---
PROCEDURE: HEAD WO INDICATIONS: Fall on Eliquis TECHNIQUE: Noncontrast 4.5 mm thick angled axial sections acquired from the foramen magnum to the vertex. For r adiation dose reduction, the following was used: automated exposure control, adjustment of mA and/or kV according to patient size. COMPARISON: CT head without, 02/01/2022. FINDINGS: Image quality: Excellent. CSF spaces: Basal cisterns are patent. No extra-axial fluid collections. Ventricles are normal in prominent in size and symmetric lesion. Brain: No midline shift. No intracranial masses or hemorrhage. Mild cerebral volume loss and perive ntricular white matter chronic small vessel ischemic changes are present. Castellanos-white matter interface is normal. Skull and face: Calvarium and visualized facial bones are intact, without suspicious lesions. Sinuses: Visualized sinuses and mastoids are clear. IMPRESSION: No acute intracranial abnormalities. Reviewed by: Jillian Dangelo MD on 12/01/2022 8:18 AM PDT Approved by: Jillian Dangelo MD on 12/01/2022 8:18 AM PDT Station ID: [id number]
--- NOTE | 2022-12-01 08:23 | XRAY Report ---
PROCEDURE: Forearm LT INDICATIONS: Postreduction TECHNIQUE: 2 views of the forearm were acquired. COMPARISON: X-ray wrist 12/01/2022 FINDINGS: Bones: Overlying cast material is present. While there has been improved alignment at the radiocarpal joint, there remains subluxation.. There remains mildly displaced distal radial fracture. Subluxatio n/dislocation at the radiocarpal joint space has improved with near anatomic alignment. Also noted pr ior exam was suspicious for scaphoid fracture, with the area not well imaged on current exam. Soft tissues: No suspicious soft tissue calcifications or masses. IMPRESSION: Interval reduction with with persistent appearance of subluxation of the radiocarpal joint. Intra-articular mildly displaced distal radial fracture is again noted. Suspected scaphoid fracture not well seen on current exam. It is better appreciated on x-ray wrist of 12/01/2022. The above findings are concordant with preliminary report. Reviewed by: Tamy Daniel MD on 12/01/2022 8:21 AM PDT Approved by: Tamy Daniel MD on 12/01/2022 8:21 AM PDT Station ID: [id number]
[2022-12-01 08:44] VITALS: BP 129/89
== END 2022-12-01 08:44 | disposition home or self-care (01) ==
LOC: ED 03:48
DX: S52.502A Unspecified fracture of the lower end of left radius, initial encounter for closed fracture (principal); S70.02XA Contusion of left hip, initial encounter; S52.532A Colles' fracture of left radius, initial encounter for closed fracture; W01.0XXA Fall on same level from slipping, tripping and stumbling without subsequent striking against object, initial encounter; Y93.01 Activity, walking, marching and hiking; Y92.008 Other place in unspecified non-institutional (private) residence as the place of occurrence of the external cause; I48.91 Unspecified atrial fibrillation; Z87.891 Personal history of nicotine dependence; Z20.822 Contact with and (suspected) exposure to COVID-19; Z88.5 Allergy status to narcotic agent; Z79.01 Long term (current) use of anticoagulants; I50.9 Heart failure, unspecified; Z95.0 Presence of cardiac pacemaker
CPT/HCPCS: 25605; 36415; 80053; 82803; 83690; 83880; 84484; 85025; 85610; 87633; 93005; 94770; 99152; 99284

== ENCOUNTER 2022-12-02 11:25 | Emergency (ER) | payer MEDICARE ==
--- NOTE | 2022-12-02 13:08 | XRAY Report ---
PROCEDURE: Wrist 3 View LT INDICATIONS: injury TECHNIQUE: 3 views of the wrist were acquired. COMPARISON: 12/01/2022 FINDINGS: Bones: Fracture dislocation of the distal radius and radiocarpal joint again seen, not significantly changed compared to 12/01/2022. There is volar displacement of the carpal row in relation to the radius . Thumb base degenerative changes. Soft tissues: Soft tissue swelling is present. IMPRESSION: Distal radial and radiocarpal fracture-dislocation as before. Reviewed by: Pravin Coronado MD on 12/02/2022 1:07 PM PDT Approved by: Pravin Coronado MD on 12/02/2022 1:07 PM PDT Station ID: [id number]
--- NOTE | 2022-12-02 13:29 | ED Physician Documentation ---
PD HPI UPPER EXT INJURY - Stated complaint Stated Complaint: LT WRIST BANDAGE CHANGE - Chief complaint Chief Complaint: Trauma Ext - History obtained from History obtained from: Patient, Family (Daughter) - Additonal information Additional information: Patient was seen yesterday after a fall and found to have a Distal left radius fracture that required reduction. She is on Eliquis. She has noticed discoloration to her fingers and was concerned. Denies numbness. Does report pain. Review of Systems Constitutional: denies: Fever Cardiac: denies: Chest pain / pressure Respiratory: denies: Dyspnea GI: denies: Abdominal Pain Musculoskeletal: reports: Extremity pain, Extremity swelling Neurologic: denies: Headache PD PAST MEDICAL HISTORY - Past Medical History Past Medical History: Yes Cardiovascular: Hypertension, High cholesterol, Atrial fibrillation, Other Respiratory: None Neuro: Migraines Endocrine/Autoimmune: None GI: GERD, Chronic constipation HANDLE BENDER: Ectopic : None HEENT: Chronic vision loss Psych: None Musculoskeletal: Osteoarthritis, Gout Derm: None - Past Surgical History Past Surgical History: Yes General: Appendectomy Ortho: Spine surgery - Present Medications Home Medications: Ambulatory Orders Medication Instructions Recorded Confirmed Disopyramide Phosphate [Norpace Cr] 200 mg PO BID 07/16/13 01/23/22 Pregabalin [Lyrica] 100 mg PO HS 07/16/13 01/23/22 Apixaban [Eliquis] 5 mg ORAL BID 06/11/21 01/23/22 Atorvastatin Calcium [Lipitor] 80 mg PO HS 06/11/21 01/23/22 Methadone [Methadone Hcl] 5 mg PO DAILY 06/11/21 01/23/22 Sumatriptan Succinate [Imitrex] 100 mg PO DAILY PRN 06/11/21 01/23/22 allopurinoL [Zyloprim] 100 mg PO DAILY 06/11/21 01/23/22 Methadone [Methadone Hcl] 10 mg PO QPM 01/24/22 01/24/22 Metoprolol Succinate [Toprol Xl] 100 mg PO BID 30 Days #120 tablet 01/29/22 Acetaminophen/Cod 300/30 [Tylenol 1 each PO Q4-6H PRN #15 tablet 12/01/22 #3] - Allergies Allergies/Adverse Reactions: Allergies Allergy/AdvReac Type Severity Reaction Status Date / Time acetaminophen [From Vicodin] AdvReac Emesis Verified 12/02/22 11:57 hydrocodone [From Vicodin] AdvReac Emesis Verified 12/02/22 11:57 - Social History Does the pt smoke?: No Smoking Status: Never smoker Does the pt drink ETOH?: Yes Does the pt have substance abuse?: No - Immunizations Immunizations are current?: Yes - POLST Patient has POLST: No PD ED PE NORMAL - General General: Alert and oriented X 3, No acute distress, Well developed/nourished - HEENT HEENT: Atraumatic - Neck Neck: Supple, no meningeal sign - Cardiac Cardiac: RRR, Strong equal pulses - Extremities Extremities: Other (Significant bruising to left hand and wrist extending to the fingertips primarily on the dorsal surface, Finger nailbeds are pink with brisk cap refill, patient is able to Wiggle fingers and has intact sensation.) Results - Vitals Vitals: Vital Signs - 24 hr 12/02/22 12/02/22 11:54 13:33 Temperature 36.2 C L 36.1 C L Heart Rate 86 85 Respiratory 16 16 Rate Blood Pressure 105/65 110/62 O2 Saturation 95 96 Oxygen O2 Source Nasal cannula PD Medical Decision Making - ED course Complexity details: reviewed results, re-evaluated patient, d/w patient, d/w family ED course: Patient presenting for evaluation of a discoloration to digits in setting of recent splint application for fracture. I did remove the splint to adequately assess her. The hand is swollen and quite bruised although compartments are soft and she does not have exam findings to suggest compartment syndrome. Good radial pulse, brisk cap refill in fingertips which are also pink and well- perfused. An x-ray was obtained which I reviewed demonstrating fracture as well as concerns for radiocarpal dislocation. I did discuss the x-rays today as well with Dr. Pearson on-call for Ortho. He has reviewed the images. He does not feel there is much we are going to be able to do for this alignment in the emergency department and recommends that patient continue to work on elevation to help reduce swelling. He is scheduled to see the patient on . D/W pt and daughter. They are advised on concerning symptoms to return for. Splint was reapplied. Patient continues to have good cap refill in her digits after splint application. Departure - Departure Disposition: 01 Home, Self Care Clinical Impression: Fracture of left distal radius Instructions: ED Fx Wrist General Follow-Up: David Pearson MD [Provider Admit Priv/Credential] - Within 3 Days Comments: You have a fracture in your wrist. Please keep your splint on. Please try and elevate your arm is much as possible as reducing the swelling is very important to do at this time. Please follow-up with the orthopedic surgeon on for your scheduled appointment. If you develop any worsening symptoms such as numbness or increased pain then please return to the emergency department. Discharge Date/Time: 12/02/22 13:33
[2022-12-02 13:34] VITALS: BP 110/62
== END 2022-12-02 13:33 | disposition home or self-care (01) ==
LOC: ED 11:25
DX: S52.502A Unspecified fracture of the lower end of left radius, initial encounter for closed fracture (principal); W19.XXXA Unspecified fall, initial encounter
CPT/HCPCS: 99283

== ENCOUNTER 2022-12-06 04:02 | Outpatient (CLI) | payer MEDICARE | END 2022-12-06 23:59 | disposition critical access hospital (66) | LOC: EMS 04:02 → MERGE 04:02 → EMS 23:59 | DX: I46.9 Cardiac arrest, cause unspecified (principal) | CPT/HCPCS: A0425; A0427 ==

== ENCOUNTER 2022-12-06 04:15 | Emergency (ER) | payer MEDICARE ==
--- NOTE | 2022-12-06 04:40 | ED Physician Documentation ---
PD HPI CPR - Stated complaint Stated Complaint: ROSC - History obtained from History obtained from: EMS - Additional information Additional information: Patient arrives intubated, unresponsive, CPR in progress. HPI is provided by EMS. EMS was assessing patient at her place of residence for c/o generalized weakness, dyspnea. She was AAOx3 with BP 120s/80 and paced rhythm on monitor when they initially were assessing her, no obvious distress. However, as they were loading patient unto ambulance for transport to [facility], patient suddenly became unconscious, unresponsive, and apneic. CPR was started and she was given IV epinephrine 1mg . During the course of the subsequent resuscitations efforts, patient was intubated, received four more doses of IV epinephrine (1mg per dose, total of five doses [address] [employer] [address]), given 300mg IV amiodarone, and defibrillation attempted at 200J (EMS says the rhythm on monitor was paced rhythm but no palpable pulses). EMS was able to obtain ROSC during these resuscitation efforts, and at that point a dopamine drip was started. However, within several minutes she again lost pulses and was unresponsive. Review of Systems Unable to obtain: Unresponsive, Intubated PD PAST MEDICAL HISTORY - Past Medical History Past Medical History: Yes Cardiovascular: Hypertension, High cholesterol, Atrial fibrillation Other Past Medical History: hypertrophic cardiomyopathy - Past Surgical History Past Surgical History: Yes Cardiovascular: Pacemaker (placed 2021) - Allergies Allergies/Adverse Reactions: Allergies Allergy/AdvReac Type Severity Reaction Status Date / Time Unable to Assess Allergy Verified 12/06/22 05:28 PD ED PE NORMAL - Vitals Vital signs reviewed: Yes PD ED PE EXPANDED - General General: Unresponsive, Other (ETT in place (orotracheal)) - Eyes Eyes: Other (pupils are fixed and dilated bilaterally) - Cardiac Cardiac: Other (old/healed left ACW scar c/w PPM surgical site. no heart sounds (during pulse check)) - Respiratory Respiratory: Other (no spontaneous respiratory effort. respirations being given via bag valve connected to ETT) - Abdomen Abdomen: No: Distended - Derm Derm: Pale - Extremities Extremities: Other (LUE splint in place; exposed left hand/fingertips are swollen and echymotic) - GCS Eye Opening: None Motor: None Verbal: None Total: 3 Results - Vitals Vitals: Vital Signs - 24 hr 12/06/22 05:20 Heart Rate 0 L Respiratory 0 L Rate Blood Pressure 0/0 L O2 Saturation 0 L Oxygen O2 Source Ambu bag PD Medical Decision Making - ED course ED course: Patient arrives intubated and CPR is in progress. I was at the bedside as the patient is brought into the emergency department. During the ER resuscitative efforts, I did not see any spontaneous movement of the patient's limbs, no spontaneous respirations. On multiple pulse checks, I did not palpate a pulse (carotid checks by myself as well as carotid artery and femoral artery checks by ED nursing staff). ED RN did report to me that they noted very slight movement of the patient's lower limbs and they were able to palpate a faint pulse shortly after the patient arrived. I was in the room at that time but was receiving report from EMS. I did not witness any movement on the patient's part, nor did I appreciate a palpable pulse throughout the resuscitative efforts from my standpoint.During the last 2 pulse checks, using bedside ultrasound, I note no cardiac activity. During ED resuscitative efforts, a pulse rate of 60 bpm is noted on the monitor. During ED resuscitative efforts, she is given a total of 4 mg of epinephrine IV. She is also given 1 amp of sodium bicarb IV. After 28 minutes of resuscitative efforts in the emergency department, she continued to be pulseless, apneic, unresponsive to stimuli including painful stimuli. Pupils are fixed and dilated. I pronounced patient at 4:30 AM. - Critical Care Time(min): 25 Time Includes: Direct patient care, Review records, Document care, See progress note Data interpretation: See progress note Procedures included in critical care time: See progress note Procedures excluded from critical care time: CPR, See progress note Departure - Departure Disposition: 20 Clinical Impression: Cardiopulmonary arrest, Discharge Date/Time: 12/06/22 06:56
[2022-12-06 05:28] VITALS: BP 0/0
== END 2022-12-06 04:30 | disposition expired ==
LOC: ED 04:15 → MERGE 04:15 → ED 04:30
DX: I46.9 Cardiac arrest, cause unspecified (principal); I10 Essential (primary) hypertension; E78.00 Pure hypercholesterolemia, unspecified; I48.91 Unspecified atrial fibrillation
CPT/HCPCS: 96374; 96375; 99285